=== PATIENT | female | born 1950 | race Caucasian/White ===

== ENCOUNTER 2019-10-07 07:50 | Outpatient (RCR) | payer MEDICARE, BC, SELFPAY ==
--- NOTE | 2019-10-07 09:05 | PTOPEVAL ---
Thank you for referring Beverly Del Rio to [facility].? The patient is scheduled to be seen for therapy? ____x/week for ___ weeks. Please review, sign, date and return this plan of care SUNDAY. I agree with and certify that the following plan of care is medically necessary. Referring Physician Date Admitting Provider: Attending Provider: PHYSICIAN NOT ON STAFF Referring Provider: *PT Outpatient Evaluation Start: 10/07/19 08:06 Freq: Status: Active Protocol: Document 10/07/19 08:05 PERRY (Rec: 10/07/19 08:58 PERRY [id number]) Therapy Assessment Status Assessment Status Assessment Status Evaluation Evaluation Information Problem Diagnosis lumbar radiculopathy, R LE pain Onset 10/01/19 Additional Evaluation Detail LEFS = OSWESTRY = Subjective Information patient reports she began Query Text:As Reported By Patient/ having increased pain in the Family back and down the R LE about 1 month ago. she reports she has pain in the fron of the thigh and medial side of the R knee. she reports she has had similar issues in the past with the back of the leg and lateral side of the knee. she reports she has a history of spinal surgery. she reports getting into and out of a car is more troublesome. she reports she wears a bandaid over the medial side of the knee to prevent rubbing on the nerve. she reports she is still working and works at [employer]. she reports decreased pain with standing and walking. Prior Level of Function Comments Additional Prior Level of Function prior to a month or so ago, no Comments issues with the R LE or lumbar spine other than general soreness at times. Pain Assessment Timing of Pain Assessment Timing of Pain Assessment Assessment Pain Scale Pain Scale Used Numeric (1 - 10) Self Report Pain Assessment Right Medial Knee(s) Reported Pain Level 6 Pain Description Burning,Soreness,Tingling Lowest Pain Intensity 1 Greatest Pain Intensity 8 Lower Back Reported Pain Level 0 Lowest Pain Intensity
--- NOTE | 2019-10-24 16:43 | PTOPEVAL ---
Thank you for referring Beverly Del Rio to [facility].? The patient is scheduled to be seen for therapy? ____x/week for ___ weeks. Please review, sign, date and return this plan of care SUNDAY. I agree with and certify that the following plan of care is medically necessary. Referring Physician Date Admitting Provider: Attending Provider: PHYSICIAN NOT ON STAFF Referring Provider: *PT Outpatient Evaluation Start: 10/07/19 08:06 Freq: Status: Active Protocol: Document 10/22/19 16:00 ANALI (Rec: 10/24/19 16:42 ANALI [id number]) Therapy Assessment Status Assessment Status Assessment Status Progress Evaluation Information Problem Diagnosis lumbar radiculopathy, right l. e. pain Onset 10/01/19 Additional Evaluation Detail Oswestry=22% limitation Subjective Information Pt. reports that her low back Query Text:As Reported By Patient/ is doing well. She notes that Family pain levels have diminshed in the back signficantly. She reports that she still has right knee pain. She continues to describe most pain in the medial right knee. She reports that she is able to stand longer without back pain, but knee pain continues to limit her mobility. She reports that she would like to continue treatment focusing on remaining knee pain. Pain Assessment Timing of Pain Assessment Timing of Pain Assessment Post-Treatment Pain Scale Pain Scale Used Numeric (1 - 10) Self Report Pain Assessment Right Medial Knee(s) Reported Pain Level 5 Lower Back Reported Pain Level 0 Pain Score Pain Score 5,0: Self Report Lower Extremity Muscle Strength Testing Hip Strength Right Hip Flexion Strength 4+ Good + Hip Extension Strength 4+ Good + Hip Abduction Strength 4 Good Left Hip Flexion Strength 5 Normal Hip Extension Strength 4+ Good + Hip Abduction Strength 4+ Good + Knee Strength Right Knee Flexion Strength 4+ Good + Knee Extension Strength 4+ Good + Muscle Length Testing Muscle Length Testing Left Hamstring Length 5 Query Text:(90 - 90 Position) Right Hamstring Length 13 Query Text:(90 - 90 Position) Palpation Assessment Palpation Palpation continue to note tenderness to palpation at the
== END 2019-11-24 09:50 | disposition home or self-care (01) ==
LOC: CHSPT 07:50
DX: M54.16 Radiculopathy, lumbar region (principal); M48.061 Spinal stenosis, lumbar region without neurogenic claudication; M17.11 Unilateral primary osteoarthritis, right knee; M70.50 Other bursitis of knee, unspecified knee
CPT/HCPCS: 97014; 97110; 97140; 97161; G0283

== ENCOUNTER 2020-10-25 08:01 | Outpatient (CLI) | payer MEDICARE, SELFPAY ==
[2020-10-25 09:02] LABS: Rheumatoid Factor Screen Negative (Negative)
[2020-10-25 09:10] LABS: CRP < 0.2 mg/dL (0.0-0.9)
[2020-10-25 09:21] LABS: Erythrocyte Sedimentation Rate 27 mm/hr (0-20)
== END 2020-10-25 08:02 | disposition home or self-care (01) ==
LOC: CHSLAB 08:07
PROVIDERS: PCP Family Medicine
DX: M25.561 Pain in right knee (principal)
CPT/HCPCS: 36415; 85652; 86038; 86140; 86430

== ENCOUNTER 2021-01-23 12:40 | Emergency (ER) | payer MEDICARE, SELFPAY ==
[2021-01-23] VITALS (7 sets, daily range): BP systolic 141–160; BP diastolic 73–90; PULSE 82–93; RESP 16–24; TEMP 36.1–36.3; O2SAT 96–100
--- NOTE | ~2021-01-23 | XR_ITS ---
EXAMINATION: XR chest 2V DATE: 01/23/2021 14:08 INDICATION: Shortness of breath TECHNIQUE: PA and lateral views of the chest are obtained. COMPARISON: 07/16/2007 FINDINGS: The lungs are free of acute opacities. There is no pleural effusion or pneumothorax. The ca rdiomediastinal silhouette is normal. There is moderate thoracic spondylosis. IMPRESSION: 1. No acute cardiopulmonary abnormality. Reviewed, dictated and finalized at location A. OMICS LECTURER
--- NOTE | 2021-01-23 13:40 | ED.SOB ---
HPI - SOB/Dyspnea General Chief Complaint: Shortness of Breath/Dyspnea Stated Complaint: short of breath Source: patient and RN notes reviewed Mode of arrival: ambulatory Limitations: no limitations History of Present Illness MD elicited complaint: shortness of breath Onset (ago): week(s) (2) Context: occurred during exertion Timing: intermittent Severity: moderate Exacerbating factors: exertion Relieving factors: rest Associated symptoms: denies other symptoms Treatment prior to arrival: none Related Data Home oxygen amount: none Home Medications Medication Instructions Recorded Confirmed alprazolam 0.5 mg tablet 0.5 mg PO QHS PRN 06/02/20 01/23/21 amitriptyline 25 mg tablet 25 mg PO QHS 06/02/20 01/23/21 aspirin 81 mg tablet,delayed 81 mg PO DAILY 06/02/20 01/23/21 release atorvastatin 40 mg tablet 40 mg PO DAILY 06/02/20 01/23/21 gabapentin 300 mg capsule 600 mg PO DAILY cap 06/02/20 01/23/21 lisinopril 20 1 tablet PO DAILY 06/02/20 01/23/21 mg-hydrochlorothiazide 12.5 mg tablet celecoxib 200 mg PO BID 01/23/21 01/23/21 Allergies Allergy/AdvReac Type Severity Reaction Status Date / Time No Known Allergies Allergy Verified 01/23/21 12:58 Review of Systems Review of Systems: All systems reviewed & are unremarkable except as noted in HPI and below Constitutional: Constitutional: Denies chills and Denies fever(s) Cardiovascular: Cardiovascular: Denies chest pain and Denies diaphoresis Respiratory: Respiratory: Reports as per HPI and Denies cough Gastrointestinal: Gastrointestinal: Denies nausea and Denies vomiting Neurologic: Denies dizziness and Denies syncope [facility] Past Medical History Medical History (Updated 01/23/21 @ 16:19 by Jonathan Cheema MD) Hyperlipidemia Hypertension Surgical History Surgical History (Updated 01/23/21 @ 13:55 by Jonathan Cheema MD) History of tonsillectomy Previous back surgery S/P [facility] Social History Social History Smoking status: Never smoker Alcohol intake: current Substance use: never Exam Const: General: healthy appearing, no acute distress and alert Nutritional Appearance: well nourished Orientation/consciousness: patient oriented x3 HENMT: Head: normal to inspection Ears: external ears normal Mouth: Yes moist mucous membranes Eyes: Conjunctivae: conjunctivae normal Pupils: Equal, round and reactive pupils present EOM: EOMs intact bilaterally Neck: Neck: normal visual inspection Resp: Effort & Inspection: normal respiratory effort Auscultation: clear to auscultation bilaterally Cardio: Rate: regular rate Rhythm: regular rhythm and regular rhythm GI: GI Palp: Yes Soft to palpation, No Tenderness to palpation present (GI) and No Guarding due to palpation present (GI) Auscultation: normal bowel sounds Back/Spine/Pelvis: Cervical Spine: cervical ROM normal Thoracic/Lumbar Spine: thoraco-lumbar ROM normal Skin: General skin exam: normal color Rashes: no rashes Neuro: General: patient oriented x3, moves all extremities, no focal motor deficits and CN's II-XI intact bilaterally Speech: normal speech Gait exam (Neuro): Normal gait present Extrem: General: normal to inspection and no clubbing, cyanosis or edema Psych: Mental Status: mental status grossly normal Affect: normal affect Attitude: cooperative Thought content: Yes Normal thought content present Course Course Emergency Course: Patient had history of anemia in the past and saw on a GI specialist found to have an ulcer. Today patient is symptomatic and therefore transfusion is appropriate. Patient advised to see a GI specialist again as an outpatient. Vital Signs Vital signs: Vital Signs Temperature 36.3 C L 01/23/21 13:00 Pulse Rate 93 01/23/21 13:00 Respiratory Rate 16 01/23/21 13:00 Blood Pressure 141/80 H 01/23/21 13:00 Pulse Oximetry 96 01/23/21 13:00 Temperature 36.2 C L 1
--- NOTE | 2021-01-23 13:41 | ECG_ITS ---
Measurements Intervals [place] Rate: 83 P: 43 [place]: 162 QRS: 9 QRSD: 78 T: 31 QT: 346 QTc: 407 Interpretive Statements SINUS RHYTHM ATRIAL PREMATURE COMPLEX VOLTAGE CRITERIA FOR LVH BORDERLINE ST ABNORMALITY- INFERIOR LEADS BORDERLINE ECG Electronically Signed On 01-23-2021 16:39:47 BALL FRINGE MACHINE OPERATOR by Johann Grey D.O.
[2021-01-23 13:55] LABS: Basophils Absolute Auto 0.05 K/mm3 (0.00-0.10); Basophils Percent Auto 0.5 % (0.0-1.0); Eosinophils Absolute Auto 0.16 K/mm3 (0.02-0.50); Eosinophils Percent Auto 1.5 % (1.0-6.0); Hematocrit 26.3 % (35.0-42.0); Hemoglobin 7.4 g/dL (11.7-13.8); Immature Granulocyte Absolute 0.07 K/mm3 (0.00-0.00); Immature Granulocyte Percent A 0.6 % (0.0-0.0); Lymphocytes Absolute Auto 1.03 K/mm3 (1.10-4.50); Lymphocytes Percent Auto 9.4 % (18.0-42.0); Mean Corpuscular HGB Conc 28.1 g/dL (32.0-36.0); Mean Corpuscular Volume 67.6 fL (78.0-102.0); Mean Platelet Volume 8.1 fl (9.2-11.8); Monocytes Absolute Auto 0.58 K/mm3 (0.10-0.90); Monocytes Percent Auto 5.3 % (2.0-11.0); Neutrophils Percent Auto 82.7 % (50.0-70.0); Platelet Count Result 497 K/mm3 (150-420); Red Blood Count 3.89 M/mm3 (4.20-5.40); Red Cell Distribution Width 17.8 % (11.6-14.4); White Blood Count 10.9 K/mm3 (4.8-10.8)
[2021-01-23 14:20] LABS: Alanine Aminotransferase 18 U/L (14-59); Albumin Level 3.3 g/dL (3.4-5.0); Alkaline Phosphatase 106 U/L (46-116); Anion Gap 8 mmol/L (8-16); Aspartate Amino Transferase 14 U/L (15-37); Bilirubin,Total 0.4 mg/dL (0.00-1.00); Blood Urea Nitrogen 23 mg/dL (7-18); Calcium 9.4 mg/dL (8.5-10.1); Carbon Dioxide 28 mmol/L (21-32); Chloride 104 mmol/L (98-108); Estimated CRCL calculation 37 ml/min; Estimated Glomerular Filt Rate 43; Glucose 90 mg/dL (70-99); Magnesium 1.9 mg/dL (1.8-2.4); NT Pro B Type Natriuretic Pept 81 pg/mL (0-125); Osmolality Calculated 293 mOsm/kg (285-295); Potassium 4.2 mmol/L (3.5-5.1); Sodium 140 mmol/L (136-145); Total Protein 7.2 g/dL (6.4-8.2); Troponin I 10.1 ng/L (0.00-60.4)
--- NOTE | 2021-01-23 14:40 | PC.NURSE ---
Blood consent signed by pt with daughter in room. Will scan into chart.
--- NOTE | 2021-01-23 14:58 | PC.NURSE ---
Pt informed waiting on blood to be ready from lab then we will start infusion. Pt states she has no needs at this time. Pt ambulated to restroom and back without difficulty. Call light in reach. Pt resting on stretcher. Pts daughter went home and states she will be back shortly.
[2021-01-23] MEDS: SODIUM CHLORIDE 0.9% IV 250 ML 30 ML IV CONT (15:31)
[2021-01-23 17:29] LABS: Hematocrit 27.9 % (35.0-42.0); Hemoglobin 8.4 g/dL (11.7-13.8)
== END 2021-01-23 17:51 | disposition home or self-care (01) ==
PROVIDERS: Emergency Provider Emergency Medicine; PCP Family Medicine
DX: D64.9 Anemia, unspecified (principal); E78.5 Hyperlipidemia, unspecified; I10 Essential (primary) hypertension
CPT/HCPCS: 36415; 36430; 71046; 80053; 83735; 83880; 84484; 85014; 85018; 85025; 86850; 86900; 86901; 86920; 93005; 96360; 96361; 99283; 99284; J7050; P9016

== ENCOUNTER 2021-02-21 10:32 | Outpatient (CLI) | payer MEDICARE, SELFPAY ==
[2021-02-21 11:31] LABS: SARS-CoV-2 Ag Negative (Negative)
== END 2021-02-21 10:33 | disposition home or self-care (01) ==
LOC: CHSLAB 10:36
PROVIDERS: PCP Family Medicine; Visit Provider Family Medicine
DX: Z20.822 Contact with and (suspected) exposure to COVID-19 (principal)
CPT/HCPCS: 87426; C9803

== ENCOUNTER 2021-04-11 07:55 | Outpatient (CLI) | payer MEDICARE, SELFPAY ==
[2021-04-11 08:22] LABS: Basophils Absolute Auto 0.04 K/mm3 (0.00-0.10); Basophils Percent Auto 0.6 % (0.0-1.0); Eosinophils Percent Auto 3.2 % (1.0-6.0); Hematocrit 37.4 % (35.0-42.0); Hemoglobin 11.5 g/dL (11.7-13.8); Immature Granulocyte Absolute 0.02 K/mm3 (0.00-0.00); Immature Granulocyte Percent A 0.3 % (0.0-0.0); Lymphocytes Absolute Auto 1.02 K/mm3 (1.10-4.50); Lymphocytes Percent Auto 16.2 % (18.0-42.0); Mean Corpuscular HGB Conc 30.7 g/dL (32.0-36.0); Mean Corpuscular Hemoglobin 24.1 pg (27.0-31.0); Mean Corpuscular Volume 78.4 fL (78.0-102.0); Mean Platelet Volume 8.8 fl (9.2-11.8); Monocytes Absolute Auto 0.81 K/mm3 (0.10-0.90); Monocytes Percent Auto 12.9 % (2.0-11.0); Neutrophils Absolute Auto 4.2 K/mm3 (1.7-7.2); Neutrophils Percent Auto 66.8 % (50.0-70.0); Platelet Count Result 357 K/mm3 (150-420); Red Blood Count 4.77 M/mm3 (4.20-5.40); Red Cell Distribution Width 26.5 % (11.6-14.4); White Blood Count 6.3 K/mm3 (4.8-10.8)
== END 2021-04-11 07:56 | disposition home or self-care (01) ==
LOC: CHSLAB 07:59
PROVIDERS: PCP Family Medicine
DX: D50.0 Iron deficiency anemia secondary to blood loss (chronic) (principal)
CPT/HCPCS: 36415; 85025

== ENCOUNTER 2022-02-02 09:49 | Outpatient (CLI) | payer MEDICARE, SELFPAY ==
--- NOTE | ~2022-02-02 | XR_ITS ---
Right ankle Technique: AP, oblique, and lateral views were obtained. Clinical History: Pain and swelling Findings: No acute fracture or dislocation is seen. Osseous alignment is anatomic. Ankle mortise and other visualized joint spaces are preserved. Plantar calcaneal spur noted. Soft tissues are otherwise unremarkable. Impression: No fracture or dislocation. No distinct evidence for erosive arthropathy. Plantar calcaneal spur. Reviewed, dictated and finalized at location . FILLER Impression: No fracture or dislocation. No distinct evidence for erosive arthropathy. Plantar calcaneal spur.
[2022-02-02 10:23] LABS: Basophils Absolute Auto 0.04 K/mm3 (0.00-0.10); Basophils Percent Auto 0.5 % (0.0-1.0); Eosinophils Absolute Auto 0.18 K/mm3 (0.02-0.50); Eosinophils Percent Auto 2.1 % (1.0-6.0); Hematocrit 41.2 % (35.0-42.0); Hemoglobin 13.4 g/dL (11.7-13.8); Immature Granulocyte Absolute 0.03 K/mm3 (0.00-0.00); Immature Granulocyte Percent A 0.3 % (0.0-0.0); Lymphocytes Absolute Auto 1.05 K/mm3 (1.10-4.50); Mean Corpuscular HGB Conc 32.5 g/dL (32.0-36.0); Mean Corpuscular Hemoglobin 28.2 pg (27.0-31.0); Mean Corpuscular Volume 86.6 fL (78.0-102.0); Mean Platelet Volume 8.9 fl (9.2-11.8); Monocytes Absolute Auto 0.68 K/mm3 (0.10-0.90); Monocytes Percent Auto 7.8 % (2.0-11.0); Neutrophils Absolute Auto 6.8 K/mm3 (1.7-7.2); Neutrophils Percent Auto 77.3 % (50.0-70.0); Platelet Count Result 368 K/mm3 (150-420); Red Blood Count 4.76 M/mm3 (4.20-5.40); Red Cell Distribution Width 13.2 % (11.6-14.4); White Blood Count 8.8 K/mm3 (4.8-10.8)
[2022-02-02 10:52] LABS: Alanine Aminotransferase 23 U/L (14-59); Albumin Level 4.1 g/dL (3.4-5.0); Alkaline Phosphatase 127 U/L (46-116); Anion Gap 9 mmol/L (8-16); Aspartate Amino Transferase 16 U/L (15-37); Bilirubin,Total 0.4 mg/dL (0.00-1.00); Blood Urea Nitrogen 18 mg/dL (7-18); Calcium 9.8 mg/dL (8.5-10.1); Carbon Dioxide 30 mmol/L (21-32); Chloride 102 mmol/L (98-108); Estimated Glomerular Filt Rate 45; Glucose 93 mg/dL (70-99); Osmolality Calculated 293 mOsm/kg (285-295); Potassium 4.1 mmol/L (3.5-5.1); Sodium 141 mmol/L (136-145); Uric Acid 6.7 mg/dL (2.6-6.0)
== END 2022-02-02 09:50 | disposition home or self-care (01) ==
LOC: CHSLAB 09:51
PROVIDERS: PCP Family Medicine; Visit Provider Family Medicine
DX: M25.571 Pain in right ankle and joints of right foot (principal); M77.31 Calcaneal spur, right foot
CPT/HCPCS: 36415; 73610; 80053; 84550; 85025

== ENCOUNTER 2022-11-20 10:59 | Outpatient (CLI) | payer MEDICARE, SELFPAY ==
--- NOTE | ~2022-11-20 | XR_ITS ---
EXAM: XR foot RT min 3V DATE: 11/20/2022 11:37 HISTORY: POSTERIOR FOOT PAIN/HEEL RADIATES UP INTO ACHILES . COMPARISON: None available. FINDINGS: Normal mineralization. No fracture or dislocation. No lytic or blastic lesion. Mild degene rative change in the midfoot and first MTP joint. Moderate Achilles and plantar enthesopathy. No eros ion or periosteal change. Soft tissues within normal limits. IMPRESSION: Moderate polyarticular osteoarthritis. Moderate plantar and Achilles enthesopathy. Reviewed, dictated and finalized at location K. IMPRESSION: Moderate polyarticular osteoarthritis. Moderate plantar and Katerina s enthesopathy.
== END 2022-11-20 11:00 | disposition home or self-care (01) ==
LOC: CHSIMG 11:04
PROVIDERS: PCP Family Medicine; Visit Provider Nurse Practitioner Family
DX: M25.571 Pain in right ankle and joints of right foot (principal); M19.071 Primary osteoarthritis, right ankle and foot; M77.31 Calcaneal spur, right foot
CPT/HCPCS: 73630

== ENCOUNTER 2023-03-29 16:39 | Outpatient (CLI) | payer MEDICARE, SELFPAY ==
--- NOTE | ~2023-03-29 | XR_ITS ---
EXAMINATION: XR knee LT 3V DATE: 03/29/2023 17:01 INDICATION: Left knee pain. TECHNIQUE: 3 views of left knee were obtained. COMPARISON: Left knee radiographs 10/30/2018 FINDINGS: Bone alignment is normal. No fracture. There is mild tricompartmental osteoarthritis. There is chondrocalcinosis of the menisci. No knee joint effusion. IMPRESSION: 1. Mild left knee osteoarthritis. Reviewed, dictated and finalized at location A. HANT PATROLLER
[2023-03-29 17:08] LABS: Basophils Absolute Auto 0.06 K/mm3 (0.00-0.10); Basophils Percent Auto 0.7 % (0.0-1.0); Eosinophils Absolute Auto 0.31 K/mm3 (0.02-0.50); Eosinophils Percent Auto 3.7 % (1.0-6.0); Hematocrit 42.4 % (35.0-42.0); Hemoglobin 13.2 g/dL (11.7-13.8); Immature Granulocyte Absolute 0.02 K/mm3 (0.00-0.00); Immature Granulocyte Percent A 0.2 % (0.0-0.0); Lymphocytes Absolute Auto 1.95 K/mm3 (1.10-4.50); Lymphocytes Percent Auto 23.6 % (18.0-42.0); Mean Corpuscular HGB Conc 31.1 g/dL (32.0-36.0); Mean Corpuscular Hemoglobin 26.2 pg (27.0-31.0); Mean Corpuscular Volume 84.3 fL (78.0-102.0); Mean Platelet Volume 9.4 fl (9.2-11.8); Monocytes Absolute Auto 0.74 K/mm3 (0.10-0.90); Monocytes Percent Auto 8.9 % (2.0-11.0); Neutrophils Absolute Auto 5.2 K/mm3 (1.7-7.2); Neutrophils Percent Auto 62.9 % (50.0-70.0); Platelet Count Result 361 K/mm3 (150-420); Red Blood Count 5.03 M/mm3 (4.20-5.40); White Blood Count 8.3 K/mm3 (4.8-10.8)
[2023-03-29 17:40] LABS: CRP 1.4 mg/dL (0.0-0.9); Uric Acid 5.7 mg/dL (2.6-6.0)
[2023-03-29 18:12] LABS: Erythrocyte Sedimentation Rate 28 mm/hr (0-20)
[2023-03-29 18:15] LABS: Rheumatoid Factor Screen Negative (Negative)
[2023-04-04 19:51] LABS: ANA Cascade Screen Negative (Negative)
== END 2023-03-29 16:40 | disposition home or self-care (01) ==
LOC: CHSLAB 16:42
PROVIDERS: PCP Family Medicine; Visit Provider Family Medicine
DX: M25.562 Pain in left knee (principal); M17.12 Unilateral primary osteoarthritis, left knee
CPT/HCPCS: 36415; 73562; 83516; 84550; 85025; 85652; 86038; 86140; 86225; 86235; 86430

== ENCOUNTER 2023-09-02 16:33 | Emergency (ER) | payer MEDICARE, SELFPAY ==
[2023-09-02 16:34] VITALS: BP 120/80; PULSE 100; RESP 20; TEMP 36.7; O2SAT 95
--- NOTE | 2023-09-02 16:43 | ED.GENADULT ---
HPI - General Adult General Chief complaint: Allergic Reaction Stated complaint: allergic rxn Time Seen by Provider: 09/02/23 16:36 Source: patient Mode of arrival: ambulatory Limitations: no limitations History of Present Illness HPI narrative: 72 year old female presents to the Emergency Department complaining of swelling to lips. Began with lower lips and herpetic eruptions while vacationing in [place] 3 days ago. Now having swelling to upper lip. Using acyclovir cream. Also takes Lisinopril/HCTZ. Onset (ago): day(s) (3) Location: mouth Severity: moderate Quality: burning Relieving factors: none Treatments prior to arrival: other (acyclovir cream) Related Data Home Medications Medication Instructions Recorded Confirmed alprazolam 0.5 mg tablet 0.5 mg PO QHS PRN Anxiety 06/02/20 09/02/23 amitriptyline 25 mg tablet 25 mg PO QHS 06/02/20 09/02/23 aspirin 81 mg tablet,delayed 81 mg PO DAILY 06/02/20 09/02/23 release (Adult Low Dose Aspirin) atorvastatin 40 mg tablet 40 mg PO DAILY 06/02/20 09/02/23 gabapentin 300 mg capsule 600 mg PO DAILY 06/02/20 09/02/23 lisinopril 20 1 tablet PO DAILY 06/02/20 09/02/23 mg-hydrochlorothiazide 12.5 mg tablet Allergies Allergy/AdvReac Type Severity Reaction Status Date / Time No Known Allergies Allergy Verified 09/02/23 16:41 Review of Systems Review of Systems: All systems reviewed & are unremarkable except as noted in HPI and below Constitutional: Constitutional: Reports as per HPI, Denies chills and Denies fever(s) Eyes: Eyes: Reports as per HPI ENT: Reports system reviewed and no additional complaints, except as documented Cardiovascular: Cardiovascular: Reports as per HPI Respiratory: Respiratory: Reports as per HPI Gastrointestinal: Gastrointestinal: Reports as per HPI Genitourinary: Genitourinary: Reports no additional female genitourinary complaints Musculoskeletal: Musculoskeletal: Reports no additional musculoskeletal complaints Integumentary/Breasts: Skin/Breast: Reports system reviewed and no additional complaints, except as docu Neurologic: Reports system reviewed and no additional complaints, except as documented Psychiatric: Psychiatric: Reports no additional psychiatric complaints Endocrine: Endocrine: Reports no additional endocrine complaints Hematologic/Lymphatic: Hematologic/Lymphatic: Reports no additional hematologic/lymphatic complaints Allergic/Immunologic: Allergic/Immunologic: Reports no additional allergic/immunologic complaints PMFSH Past Medical History Medical History Hyperlipidemia Hypertension Surgical History Surgical History History of tonsillectomy Previous back surgery S/P [facility] Social History Social History Smoking status: Never smoker Alcohol intake: current Substance use: never Exam Const: General: healthy appearing Nutritional Appearance: well nourished Orientation/consciousness: patient oriented x3 HENMT: Head: normal to inspection Ears: external ears normal Face/Nose/Sinus: Normal external nose present Face and sinus: normal facial exam Other: upper lip swelling, lower lip with herpetic lesion Eyes: Conjunctivae: conjunctivae normal Pupils: Equal, round and reactive pupils present EOM: EOMs intact bilaterally Direct Ophthalmoscopy: no photophobia Neck: Neck: normal visual inspection Chest: Chest palpation & inspection: normal inspection of the chest Resp: Effort & Inspection: normal respiratory effort Auscultation: clear to auscultation bilaterally Cardio: Rate: regular rate Rhythm: regular rhythm GI: Inspection: non-distended GI Palp: Yes Soft to palpation and No Tenderness to palpation present (GI) Back/Spine/Pelvis: Back: no CVA tenderness Skin: General skin exam: normal color Rashes: no rashe
[2023-09-02] MEDS: diphenhydrAMINE HCl CAP 25 MG CAPSULE 50 MG PO (16:50)
[2023-09-02] MEDS: ACYCLOVIR 200 MG CAPSULE PO (16:50)
== END 2023-09-02 17:11 | disposition home or self-care (01) ==
LOC: CHSED 17:08
PROVIDERS: Emergency Provider Emergency Medicine; PCP Family Medicine
DX: B00.2 Herpesviral gingivostomatitis and pharyngotonsillitis (principal); T78.3XXA Angioneurotic edema, initial encounter; E78.5 Hyperlipidemia, unspecified; I10 Essential (primary) hypertension; Z79.899 Other long term (current) drug therapy; Z79.82 Long term (current) use of aspirin
CPT/HCPCS: 99283; A9270

== ENCOUNTER 2023-11-11 22:37 | Emergency (ER) | payer MEDICARE, SELFPAY ==
--- NOTE | ~2023-11-11 | XR_ITS ---
Right wrist Technique: PA, oblique, lateral, and ulnar deviation views were obtained. Clinical History: Status post fall Findings: There is acute, comminuted fracture of the distal radius, predominantly transverse orientat ion, with intra-articular extension as well. Fracture fragments are mildly displaced with dorsal atte nuation overall. There is an acute mildly displaced fracture of the ulnar styloid process. There is w idening of the scapholunate interval, compatible with underlying scapholunate ligament tear.. Soft ti ssues are unremarkable. Impression: Acute, comminuted, intra-articular fracture distal radius. Acute, mildly displaced fracture of the ulnar stylet process. Scapholunate interval widening is consistent with underlying scapholunate ligament tear. This is of u ncertain chronicity. Reviewed, dictated and finalized at location . Impression: Acute, comminuted, intra-articular fracture distal radius. Acute, mildly displaced fracture of the ulnar stylet process. Scapholunate interval widening is consistent with underlying scapholunate ligam ent tear. This is of uncertain chronicity.
[2023-11-11 22:40] VITALS: BP 157/87; PULSE 85; RESP 18; TEMP 36.3; O2SAT 96
--- NOTE | 2023-11-11 23:19 | ED.UPPEXIN ---
HPI - Extremity Injury (Upper) General Chief Complaint: Extremity Injury, Upper Stated Complaint: upper extremity injury Source: patient Mode of arrival: ambulatory Limitations: no limitations History of Present Illness HPI narrative: Patient is a 72-year-old female with a fall at the end of the stairs on to the right wrist. She sustained an injury to the right wrist. No other injuries. MD complaint: injury to: right and wrist Onset (ago): hour(s) (1) Other Extremity Injury: Right: wrist Handedness: right Place: home Severity: moderate Severity scale (1-10): 5 Relieving factors: cold therapy, immobilization and rest Exacerbating factors: movement of extremity Context: fall, direct blow and injury Associated symptoms: denies other symptoms Treatments prior to arrival: cold therapy Related Data Home Medications Medication Instructions Recorded Confirmed alprazolam 0.5 mg tablet 0.5 mg PO QHS PRN Anxiety 06/02/20 11/11/23 amitriptyline 25 mg tablet 25 mg PO QHS 06/02/20 11/11/23 aspirin 81 mg tablet,delayed 81 mg PO DAILY 06/02/20 11/11/23 release (Adult Low Dose Aspirin) atorvastatin 40 mg tablet 40 mg PO DAILY 06/02/20 11/11/23 gabapentin 300 mg capsule 600 mg PO DAILY 06/02/20 11/11/23 lisinopril 20 1 tablet PO DAILY 06/02/20 11/11/23 mg-hydrochlorothiazide 12.5 mg tablet diltiazem HCl 240 mg capsule,24 240 mg PO DAILY 11/11/23 11/11/23 hr,extended release (Tiadylt ER) Allergies Allergy/AdvReac Type Severity Reaction Status Date / Time No Known Allergies Allergy Verified 11/11/23 22:50 Review of Systems Review of Systems: All systems reviewed & are unremarkable except as noted in HPI and below Constitutional: Constitutional: Reports no additional constitutional complaints Eyes: Eyes: Reports no additional eye complaints ENT: Reports system reviewed and no additional complaints, except as documented Cardiovascular: Cardiovascular: Reports no additional cardiovascular complaints Respiratory: Respiratory: Reports no additional respiratory complaints Gastrointestinal: Gastrointestinal: Reports no additional gastrointestinal complaints Genitourinary: Genitourinary: Reports no additional female genitourinary complaints Musculoskeletal: Musculoskeletal: Reports no additional musculoskeletal complaints Integumentary/Breasts: Skin/Breast: Reports system reviewed and no additional complaints, except as docu Neurologic: Reports system reviewed and no additional complaints, except as documented Psychiatric: Psychiatric: Reports no additional psychiatric complaints Endocrine: Endocrine: Reports no additional endocrine complaints Hematologic/Lymphatic: Hematologic/Lymphatic: Reports no additional hematologic/lymphatic complaints Allergic/Immunologic: Allergic/Immunologic: Reports no additional allergic/immunologic complaints PMFSH Past Medical History Medical History Hyperlipidemia Hypertension Surgical History Surgical History History of tonsillectomy Previous back surgery S/P [facility] Social History Social History Smoking status: Never smoker Alcohol intake: current Substance use: never Exam Const: General: healthy appearing Nutritional Appearance: well nourished Orientation/consciousness: patient oriented x3 Limitations: no limitations HENMT: Head: normal to inspection Ears: external ears normal Face/Nose/Sinus: Normal external nose present Eyes: Conjunctivae: conjunctivae normal Pupils: Equal, round and reactive pupils present EOM: EOMs intact bilaterally Neck: Neck: normal visual inspection Chest: Chest palpation & inspection: normal inspection of the chest Resp: Effort & Inspection: normal respiratory effort and not labored Auscultation: clear to auscultation bilaterally and no crackles Cardio:
[2023-11-11] MEDS: HYDROcodone/acetaminophen (*CRX) 10-325 MG TABLET 1 TAB PO (23:32)
[2023-11-12 00:25] VITALS: PULSE 80; RESP 18; O2SAT 98
== END 2023-11-12 00:25 | disposition home or self-care (01) ==
PROVIDERS: Emergency Provider Emergency Medicine; PCP Family Medicine
DX: S52.501A Unspecified fracture of the lower end of right radius, initial encounter for closed fracture (principal); E78.5 Hyperlipidemia, unspecified; I10 Essential (primary) hypertension; Z79.899 Other long term (current) drug therapy; Z79.82 Long term (current) use of aspirin; W10.9XXA Fall (on) (from) unspecified stairs and steps, initial encounter; Y92.009 Unspecified place in unspecified non-institutional (private) residence as the place of occurrence of the external cause
CPT/HCPCS: 29125; 73110; 99284; A4565; A9270

== ENCOUNTER 2023-11-14 12:20 | Outpatient (CLI) | payer MEDICARE, SELFPAY ==
--- NOTE | 2023-11-14 12:38 | ECG_ITS ---
Test Date: 2023-11-14 12:49:05 Measurements Intervals [place] Rate: 85 P: 56 [place]: 172 QRS: 16 QRSD: 93 T: 23 QT: 356 QTc: 424 Interpretive Statements SINUS RHYTHM NONSPECIFIC T-WAVE ABNORMALITY ABNORMAL ECG No previous ECG available for comparison Electronically Signed On 11-14-2023 14:07:18 CDT by Basil Vizcarra M.D.
[2023-11-14 13:08] LABS: Anion Gap 6 mmol/L (4-12); Blood Urea Nitrogen 21 mg/dL (7-17); Calcium 9.8 mg/dL (8.4-10.2); Carbon Dioxide 32 mmol/L (22-30); Chloride 101 mmol/L (98-107); Estimated Glomerular Filt Rate 54; Glucose 98 mg/dL (65-110); Potassium 4.4 mmol/L (3.4-5.0); Sodium 139 mmol/L (137-145)
== END 2023-11-14 12:21 | disposition home or self-care (01) ==
LOC: ANHSURGERY 12:26
PROVIDERS: Anesthesiology; PCP Family Medicine; Visit Provider Orthopaedic Surgery
DX: I10 Essential (primary) hypertension (principal); Z79.899 Other long term (current) drug therapy; Z01.818 Encounter for other preprocedural examination; R94.31 Abnormal electrocardiogram [ECG] [EKG]
CPT/HCPCS: 36415; 80048; 93005

== ENCOUNTER 2023-11-15 03:08 | Day surgery (SDC) | payer MEDICARE, SELFPAY ==
[2023-11-14 08:41] VITALS: BMI 34.8
--- NOTE | 2023-11-14 08:49 | PC.NURSE ---
Report to the Outpatient Waiting Room, entrance under the green pavilion located off [facility], at time _0630_ on date _[id number]_. Planned Procedure Time: _0830_.? Time changes happen often and if your time is changed the preop area will call you the afternoon before. - You and your visitor will be asked to self-screen and do not enter if you have any COVID symptoms. Please call surgeon if you need to reschedule. - A mask is optional within the hospital at this time. Patients may have clear liquids (water, carbonated beverages, clear teas, apple juice) until 3 hours prior to surgery with a maximum of 20 ounces. - No food from midnight until time of surgery and no smoking Take only the following medications with a SIP of water on the morning of surgery: ___Tiadylt DO NOT STOP ANY OF YOUR OTHER PRESCRIPTION MEDICATIONS PRIOR TO SURGERY EXCEPT THE FOLLOWING Medications to discontinue per physician ___None Date to take last dose Please no make-up, nail colombian, hairspray, perfume, deodorant, or body powder the day of surgery.? No jewelry (including any body piercings) or valuables the day of surgery, leave them at home.? Please take a shower or bath the night before, or the morning of, surgery with an antibacterial soap.? Wear comfortable, loose fitting clothing.? - Jewelry must be removed prior to entering the operating room.? Rings and piercings that are not removed may be cut off. - The hospital will not accept responsibility for valuables.? - Please leave all valuables, including medications, at home the day of surgery. If you are going home after surgery, a licensed warehouse delivery driver must drive you home.? - NO public transportation without another adult if you receive anesthesia. - We recommend that an adult stay with you for 24 hours following discharge. - We also recommend that you do not drive, make important decision, drink alcoholic beverages, or take any drugs that were not prescribed by your health care provider for at least 24 hours after your discharge time. Follow any additional instructions given to you from your surgeon. Telephone instructions given to __Beverly__and asked if any additional questions and then verbalized understanding. Patient advised to call surgeon office or pre surgery nurse liaison [phone] if any additional questions.
[2023-11-15] VITALS (8 sets, daily range): BP systolic 134–148; BP diastolic 57–75; PULSE 78–100; RESP 12–21; TEMP 36.3–36.4; O2SAT 94–100
--- NOTE | ~2023-11-15 | XR_ITS ---
EXAMINATION: XR surgery orthopedic DATE: 11/15/2023 09:56 INDICATION: Right wrist ORIF TECHNIQUE: 4 fluoroscopic images of the right wrist were obtained during procedure performed by Dr. Markus mantilla. Radiologist was not present for the imaging or procedure. The amount of fluoroscopy time used during this procedure was 0.4 minutes. COMPARISON: 11/11/2023 FINDINGS: Interval open reduction internal fixation of the comminuted intra-articular fracture of the distal ri ght radius which is now in near-anatomic alignment with volar T plate and screw fixation. There is 2 degrees dorsal tilt the distal articular surface. No significant fracture gap or incongruity along th e distal articular surface. There is an unchanged mildly displaced ulnar styloid avulsion fracture. T he previously widened scapholunate interval is been reduced and now appears normal. Mild polyarticula r osteoarthritis at the wrist, triscaphe and first carpal metacarpal joints. IMPRESSION: 1. Near-anatomic alignment post open reduction and volar T plate and screw fixation of a comminuted i ntra-articular fracture of the distal right radius. 2. Unchanged mildly displaced and fixed ulnar styloid avulsion fracture fragment. 3. Previously widened scapholunate interval consistent with tear of the scapholunate ligament has bee n reduced. Unclear whether this is transient and positional or whether there has been an interval lig ament repair. Correlate with surgical history. Reviewed, dictated and finalized at location A. IMPRESSION: 1. Near-anatomic alignment post open reduction and volar T plate and screw fixa tion of a comminuted intra-articular fracture of the distal right radius. 2. Unchanged mildly displaced and fixed ulnar styloid avulsion fracture fragmen t. 3. Previously widened scapholunate interval consistent with tear of the scaphol unate ligament has been reduced. Unclear whether this is transient and position al or whether there has been an interval ligament repair. Correlate with surgic al history.
[2023-11-15] MEDS: ACETAMINOPHEN 500 MG TABLET 1000 MG PO (07:15)
--- NOTE | 2023-11-15 07:25 | WPDHPUPDATE1 ---
History and Physical Update Update Date/Time: 11/15/23 07:25 History and Physical has been reviewed, including an updated exam of the patient. There are NO changes in the patient's condition. Risks, benefits, and alternatives have been discussed and questions answered. Patient agrees to proceed with procedure.
[2023-11-15] MEDS: LACTATED RINGERS 1,000 ML 30 ML IV CONT (07:30)
[2023-11-15] MEDS: KETOROLAC 15 MG/ML VIAL (*BKC) IV PUSH (07:35)
--- NOTE | 2023-11-15 08:29 | P.OP_ITS ---
Procedure Note - Detailed Date of Procedure 11/15/23 Pre-op Diagnosis Right Wrist fracture Post-op Diagnosis Same Procedure Performed Open reduction internal fixation right wrist fracture , intra-articular with fixation of greater than 4 fragments. Surgeon Isidro Villa MD Coffee Bar Attendant 1st behavioral health assistant Anesthesia General Indications 72-year-old with right wrist fracture after fall. Presents for operative treatment. Findings Comminuted intra-articular fracture of distal radius. Description of Procedure After informed consent the operative extremity was marked in the preoperative holding area. Patient received intravenous antibiotics. Patient taken to the operating room where they underwent general anesthesia. Positioned supine on operating table. Time-out performed confirming the patient, patient's site of surgery and the plan. Right upper extremity prepped and draped in the usual sterile surgical fashion using a ChloraPrep skin solution. Hand and wrist exsanguinated and arm tourniquet inflated to 225 mmHg. Standard volar flexor carpi radialis incision utilized. Fifteen blade knife used to make longitudinal incision. Flexor carpi radialis tendon identified tendon sheath incised in line with skin incision. Tendon retracted to protect the neurovascular elements. Floor of the tendon sheath incised with a 15 blade knife. Flexor pollicis retracted medial. pronator quadratus then divided off the watershed line and reflected ulnarward to expose the distal radius and the fracture. Fracture was then reduced provisionally pinned. Image intensification confirm reduction. Fixation achieved with the distal radius volar plate. This was provisionally pinned into place and confirmed with image intensification. Fixation to the proximal fragment with a 3.5 mm screw. Distal fracture fixation achieved with 2.0 mm locking pegs and 2.0 mm fully threaded locking screws for the radial styloid. Fixation was then completed proximally with the remaining 3.5 mm sc rews. Final reduction of the fracture, alignment of the wrist joint and placement of the hardware verified with image intensification. Wound thoroughly irrigated with antibiotic solution. Pronator repaired with 3 0 Monocryl interrupted suture. Skin closed with interrupted subcutaneous 000 Monocryl interrupted suture and running 000 Monocryl subcuticular stitch. Local anesthetic with 0.5% Marcaine. Sterile dressing applied. Padded dressing and splint then applied. Tourniquet released and good capillary refill noted in the fingers and thumb. Patient awoke from anesthesia, extubated and taken to the recovery room in stable condition. All sponge and instrument counts correct at the end of case. [employer] volar distal radius plate and screws with 2.0 mm pegs. Estimated Blood Loss 5 Tourniquet Time Total Tourniquet Time: 60 Drains No Packing No Pathology None sent Complications None Condition Stable Disposition PACU [facility] Billing Surgery - Charge Forward: Surgery Billing ([id number])
--- NOTE | 2023-11-15 08:43 | WPDANESEPPF ---
Anes - Initial Pre Proc Eval Procedure: Operation Date: 11/15/23 08:30 Proposed Procedures p Open Reduction Internal Fixation Right Wrist - Isidro Villa MD Date/Time: 11/15/23 08:43 Surgeon: Isidro Villa MD Pre Op Diagnosis: Right Wrist fracture Patient Data Age: 72 Gender: F Height: 1.55 m Weight: 85 kg Last Vital Signs Temp 97.6 F 11/15/23 06:25 Pulse 100 11/15/23 06:25 Resp 20 11/15/23 06:25 BP 146/75 H 11/15/23 06:25 Pulse Ox 98 11/15/23 06:25 O2 Del Method Room Air 11/15/23 06:25 Allergies Allergy/AdvReac Type Severity Reaction Status Date / Time No Known Allergies Allergy Verified 11/15/23 07:21 Home Medications Medication Instructions Recorded Confirmed Type alprazolam 0.5 mg tablet 0.5 mg PO QHS PRN Anxiety 06/02/20 11/14/23 History amitriptyline 25 mg tablet 25 mg PO QHS 06/02/20 11/15/23 History aspirin 81 mg tablet,delayed 81 mg PO DAILY 06/02/20 11/15/23 History release (Adult Low Dose Aspirin) atorvastatin 40 mg tablet 40 mg PO DAILY 06/02/20 11/15/23 History gabapentin 300 mg capsule 600 mg PO DAILY 06/02/20 11/15/23 History lisinopril 20 1 tablet PO DAILY 06/02/20 11/15/23 History mg-hydrochlorothiazide 12.5 mg tablet diltiazem HCl 240 mg capsule,24 240 mg PO DAILY 11/11/23 11/15/23 History hr,extended release (Tiadylt ER) hydrocodone 5 mg-acetaminophen 325 1 tablet PO Q8H PRN pain #20 tabs 11/15/23 Rx mg tablet sennosides 8.6 mg-docusate sodium 1 tab-cap PO BID PRN constipation 11/15/23 Rx 50 mg tablet (Senna with Docusate #20 tabs Sodium) Patient hx anesthesia problems: none Family hx anesthesia problems: none Results Review: All pre-operative results and documents have been reviewed as part of the pre-operative evaluation. [facility] Past Medical History Medical History Hyperlipidemia Hypertension Surgical History Surgical History History of tonsillectomy Previous back surgery S/P DEANGELO-BSO Social History Social History (Updated 11/13/23 @ 14:46 by Mallika Coleman CMA) Social History: caffeine use Smoking status: Never smoker Alcohol intake: current Drinks per week: 2 Substance use: never Living arrangements: with family Occupation/Education: occupation Gender identity (if verbalized by the patient): Female Spiritual care concerns: No Anes - Eval Final PreProcedure Day of Procedure 11/15/23 08:43 Patient weight: obese Heart: regular rate and rhythm Lungs: clear to auscultation Airway: Mallampati scale class II Neurological: alert and oriented Last oral intake: >/= 8 hours ASA classification: III Emergent: no Anesthetic plan: proceed Anesthesia type and monitoring: general LMA and standard monitoring Results Review: All pre-operative results and documents have been reviewed as part of the pre-operative evaluation. Informed Consent: The patient's anesthetic plan and its attendant risks and benefits were discussed with the patient/family/POA. Questions were solicited and answers provided to the satisfaction of the patient/family/POA.
[2023-11-15] MEDS: ceFAZolin 2 GM/D5W 50 ML 2 GM/50 ML BAG IVPB (08:48)
[2023-11-15] MEDS: BUPIVACAINE/EPINEPHRINE 0.5% 10 ML VIAL 20 ML INFILTRATE (09:14)
[2023-11-15] MEDS: fentaNYL CITRATE INJ (*CRX) 100 MCG/2 ML VIAL 25 MCG IV PUSH ×4 (10:26→10:48)
[2023-11-15] MEDS: oxyCODONE HCL (*CRX) 5 MG TAB IR PO (11:20)
== END 2023-11-15 12:05 | disposition home or self-care (01) ==
PROVIDERS: PCP Family Medicine; Visit Provider Orthopaedic Surgery
PROC: (CPT 25575; principal; 2023-11-15 08:30)
DX: S52.571A Other intraarticular fracture of lower end of right radius, initial encounter for closed fracture (principal); W19.XXXA Unspecified fall, initial encounter; I10 Essential (primary) hypertension; E78.5 Hyperlipidemia, unspecified; Z79.82 Long term (current) use of aspirin; E66.9 Obesity, unspecified; Z68.35 Body mass index [BMI] 35.0-35.9, adult
CPT/HCPCS: 25609; 99199; A9270; C1713; J0690; J1100; J1885; J2003; J2250; J2405; J2704; J3010; J7120

== ENCOUNTER 2023-11-19 07:34 | Outpatient (CLI) | payer MEDICARE, SELFPAY ==
--- NOTE | ~2023-11-19 | XR_ITS ---
EXAMINATION: XR wrist RT min 3V DATE: 11/19/2023 07:51 INDICATION: Right wrist pain. TECHNIQUE: 3 views of right wrist were obtained. COMPARISON: Right wrist radiographs 11/11/2023 FINDINGS: There is a comminuted fracture of distal radius in near-anatomic alignment status post redu ction internal fixation with volar plate and screws. There is an avulsion fracture of the ulnar stylo id. Cast material obscures fine bone detail. Scapholunate dissociation is noted. There is mild osteoa rthritis of triscaphe joint and first carpometacarpal joint. IMPRESSION: 1. Comminuted fracture of distal radius status post open reduction internal fixation. 2. Avulsion fracture of the ulnar styloid. 3. Scapholunate dissociation. 4. Mild polyarticular osteoarthritis. Reviewed, dictated and finalized at location A. IMPRESSION: 1. Comminuted fracture of distal radius status post open reduction internal fix ation. 2. Avulsion fracture of the ulnar styloid. 3. Scapholunate dissociation. 4. Mild polyarticular osteoarthritis.
== END 2023-11-19 07:35 | disposition home or self-care (01) ==
LOC: CHSIMG 07:36
PROVIDERS: PCP Family Medicine; Visit Provider Orthopaedic Surgery
DX: Z47.89 Encounter for other orthopedic aftercare (principal); S52.501A Unspecified fracture of the lower end of right radius, initial encounter for closed fracture; S52.201A Unspecified fracture of shaft of right ulna, initial encounter for closed fracture; M19.031 Primary osteoarthritis, right wrist
CPT/HCPCS: 73110

== ENCOUNTER 2023-12-10 07:35 | Outpatient (CLI) | payer MEDICARE, SELFPAY ==
--- NOTE | ~2023-12-10 | XR_ITS ---
EXAMINATION: XR wrist RT min 3V DATE: 12/10/2023 08:27 INDICATION: Right wrist pain. TECHNIQUE: 3 views of right wrist were obtained. COMPARISON: Right wrist radiograph 11/19/2023 FINDINGS: There is a comminuted fracture of distal radius status post open reduction internal fixatio n with volar plate and screws. There is 10 degrees dorsal tilt of the distal articular surface. Again seen is an avulsion fracture of the ulnar styloid. Scapholunate dissociation is noted. There is dors al tilt of lunate, consistent with dorsal intercalated segmental instability (DISI). There is severe osteoarthritis of triscaphe joint, first interphalangeal joint, and second metacarpophalangeal joint. IMPRESSION: 1. Comminuted fracture of distal radius with internal fixation. 2. Avulsion fracture of the ulnar styloid. 3. Scapholunate dissociation with DISI. 4. Polyarticular osteoarthritis. Reviewed, dictated and finalized at location []
== END 2023-12-10 07:36 | disposition home or self-care (01) ==
PROVIDERS: PCP Family Medicine; Visit Provider Orthopaedic Surgery
DX: S52.501A Unspecified fracture of the lower end of right radius, initial encounter for closed fracture (principal); S52.611A Displaced fracture of right ulna styloid process, initial encounter for closed fracture; M19.031 Primary osteoarthritis, right wrist; M21.831 Other specified acquired deformities of right forearm
CPT/HCPCS: 73110

== ENCOUNTER 2024-01-14 08:35 | Outpatient (CLI) | payer MEDICARE, SELFPAY ==
--- NOTE | ~2024-01-14 | XR_ITS ---
EXAMINATION: XR wrist RT min 3V DATE: 01/14/2024 08:48 INDICATION: Fracture follow-up with generalized right wrist pain and stiffness TECHNIQUE: Posteroanterior, ulnar deviation, oblique, and lateral views of the right wrist were obtai claudy. COMPARISON: 12/10/2023 FINDINGS: Healing fracture of the metaphyseal region of the distal right radius with volar plate and screw fixa tion. There is some calcification along the radial side of the fracture which retains a discernible l ucent fracture plane. Alignment is unchanged with 15 degrees dorsal tilt of the distal articular surf ki. There is developing cortication along the fracture margin of a mildly displaced ununited ulnar s tyloid avulsion fracture. There is widening of the scapholunate interval consistent with scapholunate ligament tear with secondary dorsal intercalated segment instability (DISI). There is also moderate osteoarthritis at the radioscaphoid articulation and mild osteoarthritis at the midcarpal joint consi stent with developing scapholunate advanced collapse (SLAC) wrist. Additional polyarticular osteoarth ritis, severe at the triscaphe joint and a, moderate at the first interphalangeal joint mild at many of the remaining joints in the visualized right hand. IMPRESSION: 1. Healing internally fixed fracture distal right radius. 2. Mildly displaced unfixed ununited ulnar styloid avulsion fracture which appears to be progressing towards nonunion. 3. 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 4. Polyarticular osteoarthritis. Reviewed, dictated and finalized at location A. MERCE MERCHANDISING MANAGER IMPRESSION: 1. Healing internally fixed fracture distal right radius. 2. Mildly displaced unfixed ununited ulnar styloid avulsion fracture which appe ars to be progressing towards nonunion. 3. Scapholunate ligament insufficiency with secondary dorsal intercalated segme nt instability (DISI) and scapholunate advanced collapse (SLAC) wrist. 4. Polyarticular osteoarthritis.
== END 2024-01-14 08:36 | disposition home or self-care (01) ==
LOC: CHSLAB 08:38
PROVIDERS: PCP Family Medicine; Visit Provider Orthopaedic Surgery
DX: S52.501D Unspecified fracture of the lower end of right radius, subsequent encounter for closed fracture with routine healing (principal); Z47.89 Encounter for other orthopedic aftercare; S52.611K Displaced fracture of right ulna styloid process, subsequent encounter for closed fracture with nonunion; M25.331 Other instability, right wrist; M19.031 Primary osteoarthritis, right wrist
CPT/HCPCS: 73110

== ENCOUNTER 2024-04-08 09:34 | Outpatient (CLI) | payer MEDICARE, SELFPAY ==
--- NOTE | ~2024-04-08 | XR_ITS ---
EXAM: XR thoracic spine 3V DATE: 04/08/2024 10:34 HISTORY: FALL X3 MO AGO,PAIN IN NECK INTO LT ARM SINCE,LROM . COMPARISON: X-ray chest 01/23/2021. FINDINGS: Vertebral body alignment intact. Mild scoliosis. Kyphotic thoracic spine. Mild height loss at T7-T9, unchanged. Multilevel moderate disc space narrowing and marginal osteophytosis including b ridging lateral osteophytes. Visualized lung parenchyma is clear. Aortic arch calcifications. IMPRESSION: Mild stable compression deformities at T7-T9. Multilevel moderate thoracic degenerative d isc disease. Reviewed, dictated and finalized at location K. PAPER MANAGING EDITOR IMPRESSION: Mild stable compression deformities at T7-T9. Multilevel moderate t horacic degenerative disc disease.
--- NOTE | ~2024-04-08 | XR_ITS ---
EXAMINATION: XR_CERV2-3V_CR DATE: 04/08/2024 10:34 INDICATION: Neck pain radiating to the left arm. TECHNIQUE: 3 views of cervical spine were obtained. COMPARISON: None. FINDINGS: Alignment is normal. Vertebral body heights are normal. There is severely decreased disc he ight at C4-C5 and C5-C6 and moderately decreased disc height at C7-T1. There is multilevel facet join t osteoarthritis, severe at C7-T1. There is multilevel uncovertebral joint osteoarthritis, severe vickie aterally at C4-C5 and C5-C6. There is mild central canal stenosis at C4-C5 and C5-C6. No prevertebral soft tissue swelling. IMPRESSION: 1. Severe cervical spondylosis. Reviewed, dictated and finalized at location A. R OPERATOR
--- NOTE | ~2024-04-08 | XR_ITS ---
EXAMINATION: XR shoulder LT min 2V DATE: 04/08/2024 10:34 INDICATION: Left shoulder pain and limited range of motion post fall 3 months prior TECHNIQUE: AP internally and externally rotated, AP oblique externally rotated and transscapular Y vi ews of the left shoulder were obtained. COMPARISON: None FINDINGS: Normal alignment. No fracture. Glenohumeral joint is normal. Moderate acromioclavicular osteoarthrit is. Irregular cortical margin along the greater tuberosity which can be seen in setting of chronic ro tator cuff disease. Soft tissues are unremarkable. Visualized portion of the right lung is clear. Pro minent atherosclerotic calcifications at the left carotid bulb. IMPRESSION: Moderate left acromioclavicular osteoarthritis and changes along the greater tuberosity which can be seen with chronic rotator cuff disease. No acute osseous abnormality. Reviewed, dictated and finalized at location B. [employer]ARK WORKERS IMPRESSION: Moderate left acromioclavicular osteoarthritis and changes along the greater tu berosity which can be seen with chronic rotator cuff disease. No acute osseous abnormality.
--- OUTSIDE RECORDS SUMMARY | 2024-04-08 10:39 | XMS_ITS | Encounter Summary ---
Author Organization [facility] Address [address] [place] [address] Care Team Providers Care Greenhouse Transplanter Name Role Phone Vincent Ba MD Primary Care Provider [phone] Elías Cid MD Unavailable [phone] Cale Cline MD Unavailable Unavailable Tricia Witt MD Unavailable [phone] Encounter Details Date Type Department Care Team (Late st Contact Info) Description 04/26/2015 Therapy Visit EXTERNAL NON-[facility] [place] [place] [id number] [address] [address] Social History Tobacco Use Types Packs/Day Years Used Date Smoking Tobacco: Never Alcohol Use Standard Drinks/Week Comments No 0 (1 standard drink = 0.6 oz pur e alcohol) Sex and Gender Information Value Date Recorded Sex Assigned at Not on file Gender Identity Not on file Sexual Orientation Not on file documented as of this encounter Plan of Treatment Upcoming Encounters Date Type Department Care Team (Late st Contact Info) Description 05/13/2024 9:30 AM CDT Office Visit [facility] [id number] [place] [address], [facility] [address] [place] [address] [place] [id number] [facility] [address] [place] [address] documented as of this encounter Visit Diagnoses Not on filedocumented in this encounter Care Teams Greenhouse Transplanter Relationship Specialty Start Date End Date Vincent Ba MD [address] [place] [address] PCP - General 10/06/08 [place] [id number] [address] [place] [address] Anesthesiology-Pain Management 06/01/15 [place] [id number] [address] [place] [address] Cardiovascular Disease 12/12/18 [place] [address] [address] [place] [id number] Cardiovascular Disease 06/14/23 documented as of this encounter
--- OUTSIDE RECORDS SUMMARY | 2024-04-08 10:40 | XMS_ITS | Encounter Summary ---
Author Organization [facility] Address [address] [facility] [place] [address] Care Team Providers Care Air Transportation Provider Name Role Phone Vincent Ba MD Primary Care Provider [phone] Elías Cid MD Unavailable [phone] Cale Cline MD Unavailable Unavailable Tricia Witt MD Unavailable [phone] Encounter Details Date Type Department Care Team (Late st Contact Info) Description 06/05/2014 Therapy Visit EXTERNAL NON-[facility] [place] [place] [address] [address] Social History Tobacco Use Types [...] Description 05/13/2024 9:30 AM CDT Office Visit [facility] [address] [place] [address], [facility] [[email or web address]] [address] [place] [address] [place] [address] [address] [facility] [address] [place] [address] documented as of this encounter Visit Diagnoses Not on filedocumented in this encounter Care Teams Air Transportation Provider Relationship Specialty Start Date End Date Vincent Ba MD [address] [place] [address] PCP - General 10/06/08 [place] [address] [address] [place] [address] Anesthesiology-Pain Management 06/01/15 [place] [address] [address] [place] [address] Cardiovascular Disease 12/12/18 [place] [address] [address] [place] [address] Cardiovascular Disease 06/14/23 documented as of this encounter
--- OUTSIDE RECORDS SUMMARY | 2024-04-08 10:40 | XMS_ITS | Patient Health Summary ---
Author Organization [facility] Address [address] [place] [address] Care Team Providers Care Quickbooks Bookkeeper Name Role Phone Vincent Ba MD Primary Care Provider [phone] Elías Cid MD Unavailable [phone] Rodrigo Henley MD Unavailable Unavailable Tricia Witt MD Unavailable [phone] Note from [facility],non-owned Affiliates and Associated Physician Practices is amultiple site organization consisting of ambulatory clinics and hospital sitesin [place], [place], [place] and [place]. This disclosure is being madepursuant to the Care Everywhere program and may not contain all information available regarding this patient. Last updated 17.[facility] Allergies No known active allergies Medications * Be aware that medications may not be up to date on this document. Alwaysverify current medications with the patient. * gabapentin (NEURONTIN) 300 MG capsule(Started 02/15/2015) Take 2 (two) capsules by mouth at bedtime 1 refill left * Multiple Vitamins-Minerals (ONE-A-DAY MENOPAUSE FORMULA PO) Take 1 tablet by mouth once daily * acetaminophen (Tylenol) 500 MG capsule(Started 07/02/2023) Take 2 (two) capsules by mouth 3 times daily Take for ten days then as needed. * oxyCODONE, immediate release, (Roxicodone) 10 MG tablet(Started 07/02/2023) Take 0.5 (one-half) tablet to 1 (one) tablet by mouth every 4 hours as needed for Pain (PAIN) * dilTIAZem coated beads 24hr (Cardizem CD) 240 MG capsule(Started 11/13/2023) Take 1 (one) capsule by mouth once daily Do not crush or chew. 3 refills by 11/12/2024 * atorvastatin (Lipitor) 40 MG tablet(Started 11/13/2023) Take 1 (one) tablet by mouth at bedtime 3 refills by 11/12/2024 * lisinopril-hydroCHLOROthiazide (Prinzide; Zestoretic) 20-12.5 MG tablet (Started 11/13/2023) Take 1 (one) tablet by mouth once daily 3 refills by 11/12/2024 * amitriptyline (Elavil) 25 MG tablet(Started 11/13/2023) Take 1 (one) tablet by mouth at bedtime Active Problems Problem Noted Date Diagnosed Date Arthritis of knee 07/02/2023 History of anemia 05/03/2022 PSVT (paroxysmal supraventricular tachycardia) 0 09/02/2021 History of total right knee replacement 05/25/19 Iron deficiency anemia 01/25/2021 Primary osteoarthritis of right knee 10/22/2020 Multiple gastric ulcers in 2017 06/15/2016 Palpitations 04/21/2016 Dyspnea on exertion 04/21/2016 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 Monthly or less 07/02/2023 Q2: How many drinks containi ng alcohol do you have on a typical day when you are drinking? Patient does not drink Q3: How often do you have si x or more drinks on one occasion? Never 07/02/2023 Overall Financial Resource Strain (CARDIA) Answe r Date Recorded How hard is it for you to pa y for the very basics like food, housing, medical care, and heating? Not hard at all 07/03/2023 PHQ-2 Answer Date Recorded Patient Health Questionnaire-2 Score 0 09/03/2023 [facility] Occupat ional Health - Occupational Stress Questionnaire Answer Date Recorded Do you feel stress - tense, restless, nervous, or anxious, or unable to sleep at night because your mind is troubled all the time - these days? Not at all 07/03/2023 Hunger Vital Sign Answer Date Recorded Within the past 12 months, y ou worried that your food would run out before you got the money to buy more. Never true 07/03/19 Within the past 12 months, t he food you bought just didn't last and you didn't have money to get more. Never true 07/03/2023 PRAPARE - Transportation Answer Date Re corded In the past 12 months, has l ack of transportation kept you from medical appointments or from getting medications? No 06/13 In the past 12 months, has l ack of transportation kept you from meetings, work, or from getting things needed for daily living? No 07/03/2023 Housing Stability Vital Sign Answer Elvin e Recorded In the last 12 months, was t here a time when you were not able to pay the mortgage or rent on time? No 07/03/2023 In the last 12 months, how many places have you lived? 1 07/03/2023 In the last 12 months, was t here a time when you did not have a steady place to sleep or slept in a skilled nursing (including now)? No 07/03/2023 Sex and Gender Information Value Date Recorded Sex Assigned at Not on file Gender Identity Not on file Sexual Orientation Not on file Last Filed Vital Signs Vital Sign Reading Time Taken Comments Blood Pressure 125/72 11/13/2023 10:37 AM CDT Pulse 91 11/13/2023 10:37 AM CDT Temperature 36.5 C (97.7 F) 07/03/2023 7:43 AM CDT Respiratory Rate 17 07/02/2023 4:15 PM CDT Oxygen Saturation 94% 07/03/2023 7:43 AM CDT Inhaled Oxygen Concentration - - Weight 83.6 kg (184 lb 3.2 oz) 11/13/2023 10:37 AM CDT Height 154.8 cm (5' 0.95 ) 11/13/2023 10:37 AM C DT Body Mass Index 34.87 11/13/2023 10:37 AM CDT Medical Devices Implanted Type Area Senior Credit Analyst Device Identifier Shelf Expiration Date Model / Serial / Lot Prem Bone Morton-G Hv 40/20 Implanted:Qty: 1 on 05/02/2021 by Augustus Davis MD at [facility] Right: Knee [employer] 06/02/2022 [id number] / / [id number] Tray Tib 71mm Kn Cocr I Beam Implanted:Qty: 1 on 05/02/2021 by Augustus Davis MD at [facility] Right: Knee [employer] 02/08/2031 [id number] / / [id number] Cmpnt Fem Kn Rt Cr Cmnt Prm Vngrd Intlk Implanted:Qty: 1 on 05/02/2021 by Augustus Davis MD at [facility] Right: Knee [employer] 03/07/2031 [id number] / / [id number] Cmpnt Ptlr 28mm 1 Pg Wire Ascnt Arcm Kn Implanted:Qty: 1 on 05/02/2021 by Augustus Davis MD at [facility] Right: Knee [employer] 08/26/2025 [id number] / / [id number] Brng [id number] Vngrd Arcm Kn Ant Stab Implanted:Qty: 1 on 05/02/2021 by Augustus Davis MD at [facility] Right: Knee [employer] 03/30/2026 [id number] / / [id number] Brng 50e10el Vngrd Vivacit-E Kn Ant Stab Implanted:Qty: 1 on 07/02/2023 by Augustus Davis MD at [facility] Left: Knee [employer] 04/18/2028 [id number] / / [id number] Cmnt Bone Plc R 40gm Grn Implanted:Qty: 1 on 07/02/2023 by Augustus Davis MD at [facility] Left: Knee [employer] 10/12/2025 [id number] / / [id number] Cmpnt Fem Kn Lt Cr Cmnt Prm Vngrd Intlk 62.5 Mm Implanted:Qty: 1 on 07/02/2023 by Augustus Davis MD at [facility] Left: Knee [employer] 04/29/2033 [id number] / / [id number] Cmpnt Ptlr Std 28mm 3 Pg Kn Ser A Implanted:Qty: 1 on 07/02/2023 by Augustus Davis MD at [facility] Left: Knee [employer] 04/18/2028 [id number] / / [id number] Tray Tib 67mm Kn Cocr I Beam Implanted:Qty: 1 on 07/02/2023 by Augustus Davis MD at [facility] Left: Knee [employer] 06/17/2032 [id number] / / [id number] Procedures * XR KNEE LEFT 3VW(Performed 08/14/2023) Performed for Aftercare following left knee joint replacement surgery * NEURAXIAL BLOCK(Performed 07/02/2023) * [facility] TOTAL KNEE REPLACEMENT(Performed 07/02/2023) * ECHO COMPLETE(Performed 06/15/2023) Performed for Essential hypertension, Preop testing * EKG 12-LEAD(Performed 05/28/2023) Performed for Preoperative examination * COMPREHENSIVE METABOLIC PANEL(Performed 05/28/2023) Performed for Preoperative examination * CBC W AUTO DIFFERENTIAL(Performed 05/28/2023) Performed for Preoperative examination * MRI KNEE LEFT WO CONTRAST(Performed 04/24/2023) Performed for Primary osteoarthritis of left knee, Internal derangement of left knee, Pes anserine bursitis, Other tear of meniscus of left knee as current injury, unspecified meniscus, initial encounter * XR KNEE LEFT 4VW OR MORE(Performed 04/11/2023) Performed for Primary osteoarthritis of left knee, Internal derangement of left knee, Pes anserine bursitis, Other tear of meniscus of left knee as current injury, unspecified meniscus, initial encounter * MAMMO BILAT SCREENING W REDDY(Performed 09/13/2022) Performed for Encounter for screening mammogram for malignant neoplasm of breast * XR KNEE RIGHT 3VW(Performed 06/23/2022) Performed for Aftercare following right knee joint replacement surgery * MAMMO BILAT SCREENING W REDDY(Performed 09/09/2021) Performed for Visit for screening mammogram * XR KNEE RIGHT 3VW(Performed 06/14/2021) Performed for Aftercare following right knee joint replacement surgery * VAS RIGHT VENOUS DUPLEX LE(Performed 05/24/2021) Performed for History of total right knee replacement, Right leg swelling * CREATININE BLOOD(Performed 05/04/2021) * NEURAXIAL BLOCK(Performed 05/02/2021) * ARTHROPLASTY TOTAL KNEE(Performed 05/02/2021) * CBC W AUTO DIFFERENTIAL (CANCER CARE)(Performed 04/28/2021) Performed for Iron deficiency anemia, unspecified iron deficiency anemia type * LAB(Performed 04/11/2021) * EKG 12-LEAD(Performed 04/05/2021) Performed for Pre-op evaluation * VITAMIN B12 FOLATE PANEL(Performed 04/05/2021) Performed for Pre-op evaluation * RETIC COUNT(Performed 04/05/2021) Performed for Pre-op evaluation * IRON + TRANSFERRIN PANEL(Performed 04/05/2021) Performed for Pre-op evaluation * FERRITIN(Performed 04/05/2021) Performed for Pre-op evaluation * COMPREHENSIVE METABOLIC PANEL(Performed 04/05/2021) Performed for Pre-op evaluation * CBC W AUTO DIFFERENTIAL(Performed 04/05/2021) Performed for Pre-op evaluation * HOLTER MONITOR(Performed 03/10/2021) Performed for Palpitations, Dyspnea on exertion * ECHOCARDIOGRAM 2D WITH DOPPLER(Performed 02/07/2021) Performed for Palpitations, Dyspnea on exertion * HELICOBACTER PYLORI UREASE (STL)(Performed 02/02/2021) Performed for Diagnosis unknown * PATHOLOGY TISSUE EXAM (STL)(Performed 02/02/2021) Performed for Diagnosis unknown * [facility] ED EGD FLEX TRANSORAL DX(Performed 02/02/2021) * EGD(Performed 02/02/2021) * XR KNEE RIGHT 3VW(Performed 09/06/2020) Performed for Primary osteoarthritis of right knee * MAMMO BILAT SCREENING(Performed 09/06/2020) Performed for Visit for screening mammogram * XR KNEE RIGHT 3VW(Performed 10/01/2019) Performed for Primary osteoarthritis of right knee, Pes anserine bursitis * XR LUMBAR SPINE 4VW OR MORE(Performed 10/01/2019) Performed for Lumbar radiculitis, Spinal stenosis of lumbar region, unspecified whether neurogenic claudication present * MAMMO BILAT SCREENING(Performed 09/05/2019) Performed for Screening for breast cancer * US BREAST LEFT LTD(Performed 08/09/2018) Performed for Abnormal mammogram * MAMMO LEFT DIAGNOSTIC(Performed 08/09/2018) Performed for Abnormal mammogram * MAMMO BILAT SCREENING(Performed 08/05/2018) Performed for Screening for breast cancer * MAMMO BILAT SCREENING(Performed 08/03/2017) Performed for Encounter for screening mammogram for breast cancer * MAMMO BILAT SCREENING(Performed 07/31/2016) Performed for Screening mammogram, encounter for * LAB(Performed 06/23/2016) * HELICOBACTER PYLORI UREASE (STL)(Performed 05/18/2016) Performed for Iron deficiency anemia, unspecified iron deficiency anemia type, Screen for colon cancer * PATHOLOGY TISSUE EXAM (STL)(Performed 05/18/2016) Performed for Iron deficiency anemia, unspecified iron deficiency anemia type, Screen for colon cancer * EGD(Performed 05/18/2016) * ENDOSCOPY, COLON, SCREENING(Performed 05/18/2016) * COLONOSCOPY SCREEN(Performed 05/18/2016) * ESOPHAGOGASTRODUODENOSCOPY (EGD) DIAGNOSTIC(Performed 05/18/2016) * CARDIAC PROCEDURE ORDER(Performed 05/11/2016) * PT-INR(Performed 05/10/2016) Performed for CAD, ? mild, Other iron deficiency anemia * CBC W AUTO DIFFERENTIAL(Performed 05/10/2016) Performed for CAD, ? mild, Other iron deficiency anemia * CARDIAC CATH(Performed 05/10/2016) * ECHOCARDIOGRAM STRESS(Performed 05/10/2016) Performed for CAD, ? mild * ECHOCARDIOGRAM STRESS(Performed 05/10/2016) Performed for Hypercholesteremia, CAD, ? mild * COMPREHENSIVE METABOLIC PANEL(Performed 04/21/2016) Performed for Hypercholesteremia, CAD, ? mild * CBC W AUTO DIFFERENTIAL(Performed 04/21/2016) Performed for Hypercholesteremia, CAD, ? mild * LIPID PROFILE(Performed 04/21/2016) Performed for Hypercholesteremia, CAD, ? mild * TSH(Performed 04/21/2016) Performed for Hypercholesteremia, CAD, ? mild * T4 FREE(Performed 04/21/2016) Performed for Hypercholesteremia, CAD, ? mild * CARDIAC EKG ORDER(Performed 04/21/2016) * PAP IG LB RFLX HPV APTIMA ASCU(Performed 03/02/2016) Performed for Screening for vaginal cancer, Menopausal symptom * MAMMO BILAT SCREENING(Performed 06/01/2015) Performed for Screening for breast cancer * PAIN MANAGEMENT PROCEDURE TIME(Performed 04/20/2015) Performed for Right lumbar radiculopathy * NM BONE SCAN MULTIPLE AREAS(Performed 04/16/2015) Performed for Tibial pain, Pain in joint, pelvic region and thigh, right * CT LUMBAR SPINE W CONTRAST(Performed 04/14/2015) Performed for Spinal stenosis of lumbar region, Arachnoiditis (HCC) * FL MYELOGRAM LUMBAR(Performed 04/14/2015) Performed for Spinal stenosis of lumbar region, Arachnoiditis (HCC) * XR TIBIA FIBULA RIGHT 2VW(Performed 03/08/2015) Performed for Pain in joint, lower leg, right * PAIN MANAGEMENT PROCEDURE TIME(Performed 03/08/2015) Performed for Lumbar stenosis * MRI LUMBAR SPINE WO CONTRAST(Performed 03/04/2015) Performed for Lumbar stenosis, HNP (herniated nucleus pulposus), lumbar, Lumbar radiculopathy * PAIN MANAGEMENT PROCEDURE TIME(Performed 02/24/2015) Performed for Lumbar stenosis * PAIN MANAGEMENT PROCEDURE TIME(Performed 11/04/2014) Performed for Spinal stenosis, lumbar region, without neurogenic claudication, Thoracic or lumbosacral neuritis or radiculitis, unspecified, Lumbosacral spondylosis without myelopathy * PAIN MANAGEMENT PROCEDURE TIME(Performed 06/04/2014) Performed for Spinal stenosis, lumbar region, without neurogenic claudication, Thoracic or lumbosacral neuritis or radiculitis, unspecified * MRI LUMBAR SPINE WWO CONTRAST(Performed 06/02/2014) Performed for Displacement of lumbar intervertebral disc without myelopathy, Thoracic or lumbosacral neuritis or radiculitis, unspecified, Spinal stenosis, lumbar region, without neurogenic claudication * CREATININE BLOOD - POINT OF CARE (IP)(Performed 06/02/2014) * MAMMO BILAT SCREENING(Performed 04/02/2014) Performed for Routine gynecological examination * MAMMO BILAT SCREENING(Performed 01/24/2013) Performed for Other screening mammogram * EKG 12-LEAD(Performed 10/02/2012) Performed for CAD (coronary artery disease) * US BREAST LEFT COMPLETE(Performed 01/17/2012) Performed for Abnormal mammogram, unspecified * MAMMO BILAT DIAGNOSTIC(Performed 01/17/2012) Performed for Abnormal mammogram * MAMMO BILAT SCREENING(Performed 01/08/2012) Performed for Routine gynecological examination * URINALYSIS - POINT OF CARE(Performed 10/13/2011) Performed for Urinary tract infection, site not specified * CULTURE URINE COMPREHENSIVE(Performed 10/13/2011) Performed for Urinary tract infection, site not specified * PAP IG INV HPV RFLX KIN(Performed 10/13/2011) Performed for Routine gynecological examination, Special screening examination for human papillomavirus (HPV) * PAP IG RFLX HPV ASCU(Performed 10/10/2010) Performed for Routine gynecological examination * MAMMO BILAT SCREENING(Performed 12/20/2009) Performed for Routine gynecological examination * PAP THINPREP REFLX HPV MRNA E6/E7(Performed 10/08/2009) Performed for Routine Gynecological Examination * MAMMO BILAT SCREENING(Performed 12/07/2008) Performed for Routine Gynecological Examination * PAP IG RFLX HPV ASCU(Performed 10/06/2008) Performed for Routine Gynecological Examination Results * XR KNEE LEFT 3VW (08/14/2023 11:14 AM CDT) Narrative [facility] [address] - 08/14/2023 11:14 AM CDT Please see progress note in Epic for results. Augustus Davis MD DIAGNOSTIC IMAGING O RDERABLES [facility] [address] * Neuraxial Block (07/02/2023 7:34 AM CDT) Narrative Pedro Mas APRN-CRNA - 07/02/2023 7:34 AM CDT Pedro Mas APRN-CRNA 07/02/2023 7:35 AM Neuraxial Block Note Pre-Procedure: Procedure Name: Neuraxial Block Patient Location: OR Indications: surgical anesthesia Pre-Anesthetic Checklist: Patient identified, IV Checked, Risks and benefits discussed, Surgical consent verified, Monitors and equipment, Site examined, Pre-op evaluation done, Informed consent obtained, Questions answered/anesthesia questions answered and Allergies reviewed Anticoagulation/ Anti-thrombosis status confirmed? Yes Supplemental O2: room air Monitors: BP and continuous pluse ox Patient Condition: sedated, meaningful contact maintained throughout procedure Patient Sedated? Nursing sedation administration Sedation Type: mild Sedation Agents (manual): versed fentanyl mL Procedure: Block Type: Spinal Prep: Betadine Sterile Field: mask, cap/hat, sterile established and sterile gloves Approach: right paramedian Skin was localized? Nursing documentation on [facility] Skin localized with: Lidocaine 1% and 1 mL Spinal Block: Needle Type: spinal needle Needle Gauge: 22 Needle Length: 90 mm Placement Site: L3-4 Number of Attempts: 1 CSF: free flow, aspiration before injection Local anesthetics used? Nursing documentation on the [facility] Spinal Local Anesthetic: Bupivacaine: 0.75% in dextrose 2 mL Degree of difficulty: none Procedure Tolerance: tolerated well performed while the patient was sedated Sensory Level: lower level Motor Blockade: Yes Position post procedure: supine Vital Signs: Vital signs monitored and stable throughout. See anesthesia record for details. Start Time: 07/02/2023 6:59 AM End Time: 07/02/2023 7:05 AM Total Time: 6 Staff: Anesthesia Provider: Pedro Mas APRN-MANAGER NEONATAL - performed the procedure Charles Javier MD GENERAL ANESTHESIA O RDERABLES * ECHO COMPLETE (06/15/2023 3:16 PM CDT) BSA 1.6296806 m2 SSM CV FUJ I PACS LV biplane EF 70 54 - 74 % SSM CV FUJI PACS LV A2C EF 63 52 - 76 % SSM CV FUJ I PACS LV A4C EF 75 46 - 78 % SSM CV FUJ I PACS LV stroke vol BP 29.7 mL SSM CV FUJI PACS LV stroke vol BP index 15.7 mL/m2 SSM CV FUJI PACS LVOT stroke vol 79.43 mL SSM CV FUJI PACS LVOT stroke vol index 41.93 mL/m2 SSM CV FUJI PACS LV stroke vol 2D teich 56.398 ml SSM CV FUJI PACS LV Stroke Index 2D Teich 29.77 mL/m2 SSM CV FUJI PACS LV stroke vol index A4C MOD 46.639 ml/m2 SSM CV FUJI PACS AV envelope time 281 ms SSM CV FUJI PACS LVOT envelope time 295 ms SSM CV FUJI PACS LVIDd 4.22 3.8 - 5.2 cm SSM CV FUJI PACS IVSd MM 1.18 0.6 - 0.9 cm SSM CV FUJI PACS LVIDs 2.53 2.2 - 3.5 cm SSM CV FUJI PACS IVSd 2D 1.315 0.6 - 0.9 cm SSM CV FUJI PACS LVPWd 1.47 0.6 - 0.9 cm SSM CV FUJI PACS LVPWs M-Mode 1.284 cm SSM CV FUJI PACS Fractional Shortening 2D 40 28 - 44 % SSM CV FUJI PACS LV ESV BP 12.704 14 - 42 mL SSM CV FUJI PACS LV ESV index BP 6.7 8 - 24 mL/m2 SSM CV FUJI PACS LV ESV A2C 15.378 10 - 54 mL SSM CV FUJI PACS LV ESV index A2C 8.12 6 - 30 mL/m2 SSM CV FUJI PACS LV EDV BP 42.393 46 - 106 mL SSM CV FUJI PACS LV ESV A4C 9.642 12 - 60 mL SSM CV FUJI PACS LV ESV index A4C 5.09 7 - 35 mL/m2 SSM CV FUJI PACS LV EDV index BP 22.4 29 - 61 mL/m2 SSM CV FUJI PACS LV EDV A2C 26.251 41 - 133 mL SSM CV FUJI PACS LV EDV index A2C 13.86 26 - 74 mL/m2 SSM CV FUJI PACS LV EDV A4C 62.016 mL SSM CV FU JI PACS LV ESV 2D 22.903 14 - 42 mL SSM CV FUJI PACS LV EDV index A4C 32.74 30 - 82 mL/m2 SSM CV FUJI PACS LV ESV index 2D 12.09 8 - 24 mL/m2 SSM CV FUJI PACS LV EDV 2D 79.301 46 - 106 mL SSM CV FUJI PACS LV EDV index 2D 41.86 29 - 61 mL/m2 SSM CV FUJI PACS LVOT diam 2.3 cm SSM CV FUJ I PACS LVOT area 4.16 cm2 SSM CV FUJ I PACS LV RWT 0.699 SSM CV FUJ I PACS LV Morales A2C 6.314 cm SSM CV F UJI PACS LV Morales A4C 7.145 cm SSM CV F UJI PACS IVS/LVPW 0.892 SSM CV FUJ I PACS Fractional Shortening M-Mode 45 28 - 44 % SSM CV FUJ I PACS LV mass m-mode 170.107 67 - 162 g SSM CV FUJI PACS LV mass index m-mode 89.79 43 - 95 g/m2 SSM CV FUJI PACS LV mass 2D 224.351 66 - 150 g SSM CV FUJI PACS LV mass index 2D 118.42 44 - 88 g/m2 SSM CV FUJI PACS MV E pk chanelle 100.211 cm/s SSM CV F UJI PACS MV avg E/e' ratio 15.30 SS M CV FUJI PACS MV A pk chanelle 103.055 cm/s SSM CV F UJI PACS MV E A ratio 0.97 SSM CV FUJI PACS MV E' lateral chanelle 6.158 cm/s SS M CV FUJI PACS MV DT 206 ms SSM CV FUJ I PACS MV E' septal chanelle 6.997 cm/s SSM CV FUJI PACS MV E/e' septal 14.321 SSM C V FUJI PACS MV E/e' lateral 16.273 SSM CV FUJI PACS TR pk chanelle 303.7 cm/s SSM CV FUJ I PACS LVOT pk chanelle 1.02 m/s SSM CV F UJI PACS LVOT mn chanelle 0.65 m/s SSM CV F UJI PACS LVOT mn grad 1.9 mmHg SSM CV FUJI PACS GPLS AVG -19.2 % SSM CV FUJ I PACS GPLS A2C -16.7 % SSM CV FUJ I PACS GPLS A4C -19.0 % SSM CV FUJ I PACS GPLS APLAX -22.0 % SSM CV FU JI PACS AA pk sys strain -21.7 % SSM CV FUJI PACS AAS pk sys strain -28.5 % SS M CV FUJI PACS AI pk sys strain -23.4 % SSM CV FUJI PACS AL pk sys strain -23.6 % SSM CV FUJI PACS AP pk sys strain -22.6 % SSM CV FUJI PACS pk sys strain -26.5 % SSM CV FUJI PACS BA pk sys strain -12.9 % SSM CV FUJI PACS BAS pk sys strain -24.8 % SS M CV FUJI PACS BI pk sys strain -12.0 % SSM CV FUJI PACS BL pk sys strain -14.0 % SSM CV FUJI PACS BS pk sys strain -13.4 % SSM CV FUJI PACS MA pk sys strain -14.7 % SSM CV FUJI PACS MAS pk sys strain -27.1 % SS M CV FUJI PACS AZ pk sys strain -16.1 % SSM CV FUJI PACS ML pk sys strain -15.3 % SSM CV FUJI PACS MP pk sys strain -15.2 % SSM CV FUJI PACS MS pk sys strain -18.0 % SSM CV FUJI PACS LA area A4C 12.13 20 cm2 SSM CV F UJI PACS LA size 3.471 2.7 - 3.8 cm SSM CV FUJI PACS LA vol BP A-L 31.306 mL SSM CV FUJI PACS RV-morales basal diam 3.4 2.5 - 4.1 cm SSM CV FUJI PACS RV-morales longitudinal diam 5.8 5.9 - 8.3 cm SSM CV FUJI PACS RVIDd 3.3 cm SSM CV FUJ I PACS TAPSE 1.978 1.7 cm SSM CV FUJ I PACS RA area 8.837 cm2 SSM CV FUJ I PACS AV mn grad 4 mmHg SSM CV FU JI PACS AV pk grad 9 mmHg SSM CV FU JI PACS AV mn chanelle 0.98 m/s SSM CV FUJ I PACS AV pk chanelle 1.51 m/s SSM CV FUJ I PACS AV VTI 27.6 cm SSM CV FUJ I PACS LVOT pk grad 4.175 mmHg SSM CV FUJI PACS LVOT VTI 19.117 cm SSM CV FUJ I PACS AV area cont VTI 2.9 cm2 SSM CV FUJI PACS AV area pk chanelle 2.8 cm2 SSM C V FUJI PACS AV Doppler chanelle index pk chanelle 0.675 SSM CV FUJI PACS AV closure time 0.3 s SSM CV FUJI PACS Dimensionless Index 0.693 SSM CV FUJI PACS MV mn grad 2 mmHg SSM CV FU JI PACS MV pk grad 5 mmHg SSM CV FU JI PACS MV mn chanelle 0.61 m/s SSM CV FUJ I PACS MV pk chanelle 108.743 cm/s SSM CV FUJ I PACS MV PHT 52 ms SSM CV FUJ I PACS MV area PHT 4.26 cm2 SSM CV F UJI PACS MV area cont eq 2.70 cm2 SSM CV FUJI PACS MV VTI 29.432 cm SSM CV FUJ I PACS MV decel slope 481.917 cm/s2 SSM C V FUJI PACS sPAP 39.9 mmHg SSM CV FUJ I PACS RVSP 39.9 mmHg SSM CV FUJ I PACS RAP 3.0 mmHg SSM CV FUJ I PACS TR pk grad 37 mmHg SSM CV FU JI PACS dPAP 10.7 mmHg SSM CV FUJ I PACS VA pk chanelle 139.062 cm/s SSM CV FUJ I PACS VA pk grad 8 mmHg SSM CV FU JI PACS PV pk chanelle 91.838 cm/s SSM CV FUJ I PACS PV pk grad 3 mmHg SSM CV FU JI PACS Aortic arch 2.374 cm SSM CV F UJI PACS Sinus of Valsalva 3.28 cm SS M CV FUJI PACS Sinus of valsalva index 1.73 cm/m2 SSM CV FUJI PACS IVC size 1.5 cm SSM CV FUJ I PACS LA ESV A4C MOD Index 14 ml/m2 SSM CV FUJI PACS LA ESV A2C MOD Index 16 ml/m2 SSM CV FUJI PACS [id number] 5.987 cm SSM CV FUJ I PACS [id number] 5.135 cm SSM CV FUJ I PACS Ao Root Diam Index (2D) 1.73 cm SSM CV FUJI PACS LA AREA (2C) 12.399 SSM CV FUJI PACS EF M-Mode 76 % SSM CV FUJ I PACS LA Size 3.471 cm SSM CV FUJ I PACS LVIDs index 1.33 1.3 - 2.1 cm/m2 SSM CV FUJI PACS LV LVIDd index 2.23 2.3 - 3.1 cm/m2 SSM CV FUJI PACS Systolic Blood Pressure 108 SSM CV FUJI PACS Anatomical Region Laterality Modality Ultrasound Narrative 06/18/2023 11:37 AM CDT Left Ventricle: Left ventricle size is normal. Mildly increased wall thickness. Normal systolic function with a visually estimated EF of 55 - 60%. Normal wall motion. Grade I diastolic dysfunction with normal left atrial pressure. Tricuspid Valve: Trace regurgitation. Pericardium: Evidence of prominent fat pad. Right Ventricle: Right ventricle size is upper limits of normal. Mildly increased free wall thickness. Low normal systolic function.? calcification near apex.? Left Ventricle Left ventricle size is normal. Mildly increased wall thickness. Normal systolic function with a visually estimated EF of 55 - 60%. Normal wall motion. Grade I diastolic dysfunction with normal left atrial pressure. Right Ventricle Right ventricle size is upper limits of normal. Mildly increased free wall thickness. Low normal systolic function. Left Atrium Left atrium size is normal. Right Atrium Right atrium size is normal. IVC/SVC IVC diameter is less than or equal to 21 mm and decreases greater than 50% during inspiration; therefore the estimated right atrial pressure is normal (~3 mmHg). Mitral Valve Valve structure is normal. No restricted motion. Trace regurgitation. No stenosis. Tricuspid Valve Valve structure is normal. No restricted motion. Trace regurgitation. No stenosis. Aortic Valve Valve structure is trileaflet. No restricted motion. No regurgitation. No stenosis. Pulmonic Valve Valve structure is normal. No restricted motion. No regurgitation. No stenosis. Ascending Aorta Normal sized sinus of Valsalva (aortic root) and ascending aorta. Pericardium Evidence of prominent fat pad. No pericardial effusion. Study Details Study quality was adequate. A complete 2D, color Doppler, spectral Doppler and M-mode echocardiogram was performed. The apical, parasternal, subcostal and suprasternal views were obtained. Patient exhibited sinus rhythm. Procedure Note Kodak Campbell MD - 06/18/2023 Left Ventricle: Left ventricle size is normal. Mildly increased wallthickness. Normal systolic function with a visually estimated EF of 55 -60%. Normal wall motion. Grade I diastolic dysfunction with normal leftatrial pressure. Tricuspid Valve: Trace regurgitation. Pericardium: Evidence of prominent fat pad. Right Ventricle: Right ventricle size is upper limits of normal. Mildlyincreased free wall thickness. Low normal systolic function.?calcification near apex.? Vincent Ba MD [facility] * EKG 12-LEAD (05/28/2023 12:20 PM CDT) Only the most recent of3 resultswithin the time period is included. Ventricular Rate 88 BPM [facility] Atrial Rate 88 BPM [facility] P-R Interval 162 ms [facility] QRS Duration ms 68 ms [facility] Q-T Interval ms 322 ms [facility] QTC Calculation (Bezet) 389 ms [facility] Calculated P [place] 37 degrees [facility] Calculated R [place] 1 degrees [facility] Calculated T [place] 15 degrees [facility] Interpretation EKG Normal sinus rhythm Cannot rule out Anterior infarct , age undetermined Abnormal ECG Confirmed by GUERITA NEIL MD ([id number]) on 05/29/2023 7:00:01 PM [facility] 05/28/2023 12:2 0 PM CDT 05/29/2023 7:00 PM CDT Carolina Beckett DO ECG ORDERABLES [facility] * CBC W AUTO DIFFERENTIAL (05/28/2023 12:19 PM CDT) Only the most recent of4 resultswithin the time period is included. WBC 10.2 4.0 - 10.7 x10E9/L 05/28/2023 12:31 PM CDT [facility] RBC Count 4.75 3.90 - 5.20 x10E12/L 05/28/2023 12:31 PM CDT [facility] Hemoglobin 13.3 11.9 - 15.8 g/dL 05/28/2023 12:31 PM CDT [facility] Hematocrit 40.3 34.8 - 46.1 % 05/28/2023 12:31 PM CDT [facility] MCV 84.8 80.0 - 98.0 fL 05/28/2023 12:31 PM CDT [facility] MCH 28.0 26.7 - 33.6 pg 05/28/2023 12:31 PM CDT [facility] MCHC 33.0 31.7 - 36.3 g/dL 05/28/2023 12:31 PM CDT [facility] RDW-CV 14.0 11.3 - 14.8 % 05/28/2023 12:31 PM CDT [facility] Platelet Count 351 150 - 420 x10E9/L 05/28/2023 12:31 PM CDT [facility] MPV 9.2 7.8 - 11.4 fL 05/28/2023 12:31 PM CDT [facility] Neutrophil % 71.1 41.0 - 74.0 % 05/28/2023 12:31 PM CDT [facility] Lymphocyte % 17.8 17.0 - 47.0 % 05/28/2023 12:31 PM CDT [facility] Monocyte % 8.4 3.0 - 11.0 % 05/28/2023 12:31 PM CDT [facility] Eosinophil % 2.1 0.0 - 7.0 % 05/28/2023 12:31 PM CDT [facility] Basophil % 0.4 0.0 - 1.6 % 05/28/2023 12:31 PM CDT [facility] Immature Granulocytes % 0.2 0.0 - 1.0 % 05/28/2023 12:31 PM CDT [facility] Neutrophil Absolute 7.26 1.60 - 7.50 x10E9/L 05/28/2023 12:31 PM CDT [facility] Lymphocyte Absolute 1.82 1.00 - 4.40 x10E9/L 05/28/2023 12:31 PM CDT [facility] Monocyte Absolute 0.86 0.15 - 1.00 x10E9/L 05/28/2023 12:31 PM CDT [facility] Eosinophil Absolute 0.21 0.00 - 0.60 x10E9/L 05/28/2023 12:31 PM CDT [facility] Basophil Absolute 0.04 0.00 - 0.13 x10E9/L 05/28/2023 12:31 PM CDT [facility] Blood BLOOD SPECIMEN / Unknown Venipuncture / Unknown 05/28/2023 12:19 PM CDT 05/28/2023 12:24 PM CDT Shonda Shore [employer]-FILM CRITIC LAB - HEMATOLOGY ORDERABLES [facility] [address] [place] [address] * (ABNORMAL) COMPREHENSIVE METABOLIC PANEL (05/28/2023 12:19 PM CDT) Only the most recent of3 resultswithin the time period is included. Glucose 93 70 - 105 mg/dL 05/28/2023 12:40 PM CDT [facility] Sodium 141 136 - 145 mmol/L 05/28/2023 12:40 PM CDT [facility] Potassium 4.6 3.5 - 5.1 mmol/L 05/28/2023 12:40 PM CDT [facility] Chloride 102 98 - 107 mmol/L 05/28/2023 12:40 PM CDT [facility] CO2 27 22 - 29 mmol/L 05/28/2023 12:40 PM CDT [facility] Calcium 10.1 8.4 - 10.4 mg/dL 05/28/2023 12:40 PM CDT [facility] Anion Gap 12 6 - 16 mmol/L 05/28/2023 12:40 PM CDT [facility] BUN 29(H) 7 - 26 mg/dL 05/28/2023 12:40 PM CDT [facility] Creatinine 1.44(H) 0.57 - 1.11 mg/dL 05/28/2023 12:40 PM CDT [facility] Alkaline Phosphatase 105 40 - 150 U/L 05/28/2023 12:40 PM CDT [facility] ALT 16 0 - 55 U/L 05/28/2023 12:40 PM CDT [facility] AST 18 5 - 34 U/L 05/28/2023 12:40 PM CDT [facility] Protein Total 7.8 6.4 - 8.3 gm/dL 05/28/2023 12:40 PM CDT [facility] Albumin 4.1 3.4 - 5.0 gm/dL 05/28/2023 12:40 PM CDT [facility] Bilirubin Total 0.5 0.2 - 1.2 mg/dL 05/28/2023 12:40 PM CDT [facility] eGFR by CKD-EPI 38(L) >=90 mL/min/1.7 3 m2 05/28/2023 12:40 PM CDT [facility] Blood BLOOD SPECIMEN / Unknown Venipuncture / Unknown 05/28/2023 12:19 PM CDT 05/28/2023 12:24 PM CDT Shonda Shore [employer]-FILM CRITIC LAB - CHEMISTRY O RDERABLES [facility] [address] [place] [address] * MRI KNEE LEFT WO CONTRAST (04/24/2023 9:37 AM CDT) Anatomical Region Laterality Modality Lower Extremity Magnetic Resonan ce 04/25/2023 9:40 AM CDT Impressions 04/25/2023 9:44 AM CDT IMPRESSION: Degenerative change with full-thickness tear far posterior horn medial meniscus. Mild blunting mid body medial meniscus. Medial subluxation medial meniscus. Fraying of the free edge of the mid body of the lateral meniscus without focal full-thickness tear laterally. Intact cruciate and collateral ligaments. Advanced degenerative arthritic change medial compartment, moderate to advanced degenerative change patellofemoral compartment. Mild degenerative change laterally. Moderate volume joint effusion. > Interpreting Provider: Rick Iqbal MD on 04/25/2023 9:44 AM Narrative 04/25/2023 9:44 AM CDT PROCEDURE: MRI KNEE LEFT WO CONTRAST DATE/TIME OF EXAM: 04/24/2023 9:37 AM CLINICAL INFORMATION: None relevant/not provided if blank. Indication: M17.12: Unilateral primary osteoarthritis, left knee M23.92: Unspecified internal derangement of left knee M70.50: Other bursitis of knee, unspecified knee S83.204A: Other tear of unspecified meniscus, current injury, left knee, initial encounter Additional History: Persistent medial left knee pain and reduced range of motion. COMPARISON: Recent plain films. TECHNIQUE: MRI of the left knee was performed without contrast. FINDINGS: Examination of the medial compartment reveals relatively advanced degenerative arthritic change medial compartment. There is reactive marrow edema medial femoral condyle and medial tibial plateau. There is degenerative change with degenerative tear far posterior horn medial meniscus with medial subluxation medial meniscus. Fibers of the posterior root ligament are visualized. There is blunting of the free edge of the mid body of the medial meniscus. No other medial meniscus tear identified. There is thickening medial collateral ligament. Examination of the lateral compartment reveals degenerative change with fraying of the free edge of the mid body of the lateral meniscus. No discrete or full-thickness lateral meniscus tear identified. Lateral collateral ligament is intact. Popliteus tendon is intact. There is relatively mild degenerative change lateral compartment. Anterior and posterior cruciate ligament are intact. Extensor mechanism is intact. There is degenerative change patellofemoral compartment primarily medially. There is multilevel articular cartilage thinning and subchondral cyst formation within the medial and lateral femoral trochlea. Moderate volume joint effusion. No soft tissue mass. Procedure Note Rick Iqbal MD - 04/25/2023 PROCEDURE: MRI KNEE LEFT WO CONTRAST DATE/TIME OF EXAM: 04/24/2023 9:37 AM CLINICAL INFORMATION: None relevant/not provided if blank. Indication: M17.12: Unilateral primary osteoarthritis, left knee M23.92: Unspecified internal derangement of left knee M70.50: Other bursitis of knee, unspecified knee S83.204A: Other tear of unspecified meniscus, current injury, left knee, initial encounter Additional History: Persistent medial left knee pain and reduced rangeof motion. COMPARISON: Recent plain films. TECHNIQUE: MRI of the left knee was performed without contrast. FINDINGS: Examination of the medial compartment reveals relatively advanced degenerative arthritic change medial compartment. There is reactivemarrow edema medial femoral condyle and medial tibial plateau. There is degenerative change with degenerative tear far posterior horn medial meniscus with medial subluxation medial meniscus. Fibers of theposterior root ligament are visualized. There is blunting of the free edge of themid body of the medial meniscus. No other medial meniscus tear identified. There is thickening medial collateral ligament. Examination of the lateral compartment reveals degenerative change with fraying of the free edge of the mid body of the lateral meniscus. No discrete or full-thickness lateral meniscus tear identified. Lateral collateral ligament is intact. Popliteus tendon is intact. There is relatively mild degenerative change lateral compartment. Anterior and posterior cruciate ligament are intact. Extensor mechanismis intact. There is degenerative change patellofemoral compartmentprimarily medially. There is multilevel articular cartilage thinning andsubchondral cyst formation within the medial and lateral femoral trochlea. Moderate volume joint effusion. No soft tissue mass. IMPRESSION: Degenerative change with full-thickness tear far posterior horn medial meniscus. Mild blunting mid body medial meniscus. Medial subluxationmedial meniscus. Fraying of the free edge of the mid body of the lateral meniscus without focal full-thickness tear laterally. Intact cruciate and collateral ligaments. Advanced degenerative arthritic change medial compartment, moderate to advanced degenerative change patellofemoral compartment. Milddegenerative change laterally. Moderate volume joint effusion. > Interpreting Provider: Rick Iqbal MD on 04/25/2023 9:44 AM Elías Cid MD MR ORDERABLES * XR KNEE 4+ VW LEFT (04/11/2023 10:48 AM MOLD SPRAYER) Anatomical Region Laterality Modality Lower Extremity Radiographic Bernice ging 04/11/2023 1:01 PM MOLD SPRAYER Impressions 04/11/2023 1:32 PM MOLD SPRAYER IMPRESSION: Degenerative changes. Edited by Jennifer Gallo on 04/11/2023 1:09 PM > Interpreting Provider: Basil Nava MD on 04/11/2023 1:32 PM Narrative 04/11/2023 1:32 PM MOLD SPRAYER PROCEDURE: XR KNEE LEFT 4VW OR MORE DATE/TIME OF EXAM: 04/11/2023 10:49 AM CLINICAL INFORMATION: None relevant/not provided if blank. Indication: M17.12: Unilateral primary osteoarthritis, left knee. M23.92: Unspecified internal derangement of left knee. M70.50: Other bursitis of knee, unspecified knee. S83.204A: Other tear of unspecified meniscus, current injury, left knee, initial encounter. Additional History: COMPARISON: None. FINDINGS: Four views of the left knee show tricompartmental osteoarthritis with joint space narrowing and some minimal spurring. There is no acute fracture or subluxation. Procedure Note Basil Nava MD - 04/11/2023 PROCEDURE: XR KNEE LEFT 4VW OR MORE DATE/TIME OF EXAM: 04/11/2023 10:49 AM CLINICAL INFORMATION: None relevant/not provided if blank. Indication: M17.12: Unilateral primary osteoarthritis, left knee. M23.92: Unspecified internal derangement of left knee. M70.50: Other bursitis of knee, unspecified knee. S83.204A: Other tear of unspecified meniscus, current injury, left knee, initial encounter. Additional History: COMPARISON: None. FINDINGS: Four views of the left knee show tricompartmental osteoarthritis withjoint space narrowing and some minimal spurring. There is no acute fracture or subluxation. IMPRESSION: Degenerative changes. Edited by Jennifer Gallo on 04/11/2023 1:09 PM > Interpreting Provider: Basil Nava MD on 04/11/2023 1:32 PM Elías Cid MD DIAGNOSTIC IMAGING O RDERABLES * MAMMO BILAT SCREENING W REDDY (09/13/2022 9:14 AM CDT) Only the most recent of2 resultswithin the time period is included. Anatomical Region Laterality Modality Breast Bilateral Mammography 09/13/2022 10:2 6 AM CDT Impressions 09/13/2022 10:27 AM CDT : Annual screening mammography is recommended. OVERALL FINAL ASSESSMENT: BI-RADS Category 1: Negative. > Interpreting Provider: Fely Waldron MD on 09/13/2022 10:27 AM Narrative 09/13/2022 10:27 AM CDT EXAMINATION: BILATERAL DIGITAL SCREENING MAMMOGRAM AND BILATERAL BREAST TOMOSYNTHESIS HISTORY: Screening. COMPARISON: Serial examinations dating back to 08/05/2018 TECHNIQUE: BILATERAL digital breast tomosynthesis (DBT) and synthetic 2D digital mammogram images were obtained (bilateral craniocaudal and mediolateral oblique projections) including computer aided detection (CAD.) BREAST PARENCHYMAL COMPOSITION: Category B: There are scattered areas of fibroglandular density. MAMMOGRAM FINDINGS: There is no suspicious finding in either breast. Overall, there has been no significant interval change. Carlos Desouza MD MAMMO ORDERABLES * XR KNEE RIGHT 3VW (06/23/2022 9:23 AM CDT) Only the most recent of4 resultswithin the time period is included. Anatomical Region Laterality Modality Lower Extremity Computed Radiogr aphy Narrative 06/23/2022 9:24 AM CDT Roxie Browning E, RT(R) 06/23/2022 2:32 PM See progress notes for results Augustus Davis MD DIAGNOSTIC IMAGING O RDERABLES * VAS RIGHT VENOUS DUPLEX LE (05/24/2021 10:50 AM CDT) Anatomical Region Laterality Modality Lower Extremity Ultrasound 05/24/2021 10:3 9 AM CDT Narrative Procedure Note Ino Gilliland MD - 05/24/2021 [facility] [place] [address], [address] [place] [address] Lower Extremity Venous Ultrasound Report Pat.Name: TAMIA ZHAO Pat.ID: [id number] .Date: 05/24/2021 Refer.MD: Elida York Exam Time: 10:39:00 AM Study Type:LE Venous Age: 10 1950,70Y Sex: FEMALE Sonogrphr: Mikal London RVT Pat. Stat.:Outpatient CPT - 4: 29196 Reason for Study: Swelling -Leg, right, Pain -Leg, right Procedures: Lower Extremity Venous - Right Race: 1 Visit ID: [id number] ++++++++++++++++++++++++++++++++++++ SUMMARY: ++++++++++++++++++++++++++++++++++++ There is no evidence of an acute deep or superficial venous thrombosis in the right lower extremity. ++++++++++++++++++++++++++++++++++++ FINDINGS: ++++++++++++++++++++++++++++++++++++ Procedure: Venous duplex imaging of the right lower extremity was performed using color flow and spectral Doppler analysis. The contralateral common femoral vein was also examined. Study Quality: This study is of adequate technical quality. Rt Leg: All vessels seen appear patent and compressible. There was spontaneous and phasic flow seen in all the major veins of the right lower extremity. Appropriate augmentation with distal compression. No evidence of reflux with proximal compression. Comments: There is a zheng's cyst seen behind the right popliteal fossa. Signed 05/24/2021 04:00 PM Ino Gilliland MD Elida York PA-C VASCULAR LAB ORDERABLES * (ABNORMAL) CREATININE BLOOD (05/04/2021 11:51 AM CDT) Creatinine 1.22(H) 0.57 - 1.11 mg/dL 05/04/2021 12:27 PM CDT [facility] eGFR by CKD-EPI 47(L) >=90 mL/min/1.7 3 m2 05/04/2021 12:27 PM CDT [facility] Blood BLOOD SPECIMEN / Unknown Venipuncture / Unknown 05/04/2021 11:51 AM CDT 05/04/2021 12:01 PM CDT Narrative [facility] - 05/04/2021 12:27 PM CDT eGFR result was calculated using the updated CKD-EPI Creatinine Equations (2020). Prior to go live 2021 the eGFR was calculated using the MDRD calculation. Please note Reference Range change. Tiny Fountain MD LAB - CHEMISTRY LIBRADO COUCH [facility] Organization Address City/State/ZIP Co de Phone Number [facility] [address] [place] [address] * Neuraxial Block (05/02/2021 11:08 AM CDT) Narrative London Schmid MD - 05/02/2021 11:08 AM CDT Heath Villarreal APRN-CRNA 05/02/2021 11:09 AM Neuraxial Block Note Pre-Procedure: Procedure Name: Neuraxial Block Patient Location: OR Monitors: continuous pluse ox Patient Condition: sedated, meaningful contact maintained throughout procedure Procedure: Block Type: Spinal Prep: Betadine Approach: right paramedian Spinal Block: Needle Type: spinal needle Needle Gauge: 22 Needle Length: 90 mm Placement Site: L3-4 Number of Attempts: Other - please comment (mult) Degree of difficulty: moderate Procedure Tolerance: tolerated well Staff: Anesthesia Provider: Heath Villarreal APRN-CRNA - performed the procedure Eligio Kilgore DO GENERAL ANESTHESIA O RDERABLES * (ABNORMAL) CBC W AUTO DIFFERENTIAL (CANCER CARE) (04/28/2021 8:59 AM CDT) WBC 5.7 4.4 - 10.7 x10E9/L 04/28/2021 9:11 AM CDT [facility] Neutrophils % 63.2 44.0 - 73.0 % 04/28/2021 9:11 AM CDT [facility] Lymphocytes % 21.7 20.0 - 43.0 % 04/28/2021 9:11 AM CDT [facility] Monocytes % 10.9 5.0 - 13.0 % 04/28/2021 9:11 AM CDT [facility] Eosinophils % 3.7 0.0 - 7.0 % 04/28/2021 9:11 AM CDT [facility] Basophils % 0.5 0.0 - 2.0 % 04/28/2021 9:11 AM CDT [facility] Neutrophil Absolute 3.58 2.01 - 7.14 x10E9/L 04/28/2021 9:11 AM CDT [facility] Lymphocytes Absolute 1.23 1.07 - 3.94 x10E9/L 04/28/2021 9:11 AM CDT [facility] Monocytes Absolute 0.62 0.26 - 1.07 x10E9/L 04/28/2021 9:11 AM CDT [facility] Eosinophils Absolute 0.21 0 - 0.47 x10E9/L 04/28/2021 9:11 AM CDT [facility] Basophils Absolute 0.03 0 - 0.08 x10E9/L 04/28/2021 9:11 AM CDT [facility] RBC 4.96 3.80 - 5.20 x10E12/L 04/28/2021 9:11 AM CDT [facility] Hemoglobin 12.2 12.0 - 15.6 gm/dL 04/28/2021 9:11 AM CDT [facility] Hematocrit 39.2 35.9 - 45.5 % 04/28/2021 9:11 AM CDT [facility] MCV 79.0(L) 80.7 - 98.3 fl 04/28/2021 9:11 AM CDT [facility] MCH 24.6(L) 26.7 - 34.0 pg 04/28/2021 9:11 AM CDT [facility] MCHC 31.1 30.8 - 35.9 gm/dL 04/28/2021 9:11 AM CDT [facility] RDW-CV 25.8(H) 12.1 - 14.9 % 04/28/2021 9:11 AM CDT [facility] Platelet Count 369 153 - 416 x10E9/L 04/28/2021 9:11 AM CDT [facility] MPV 9.2(L) 9.4 - 12.9 fl 04/28/2021 9:11 AM CDT [facility] Blood BLOOD SPECIMEN / Unknown 04/28/2021 8:59 AM CDT 04/28/2021 8:59 AM CDT Rica López APRN-MELVIN LAB - HEMATOLOGY ORDERABLES [facility] [id number] [address] * LAB (04/11/2021) Only the most recent of2 resultswithin the time period is included. Scanned Document SCANNING ONLY * (ABNORMAL) RETIC COUNT (04/05/2021 1:48 PM MOLD SPRAYER) Pathologist [facility] Reticulocyte Count 1.19 0.5 - 1.7 % 04/05/2021 2:25 PM MOLD SPRAYER [facility] Reticulocyte Absolute 0.0572 0.0041 - 0.0971 x10E6/uL 04/05/2021 2:25 PM MOLD SPRAYER [facility] Reticulocyte Immature Fractionated 18.0(H) 0.9 - 14.3 % 04/05/2021 2:25 PM MOLD SPRAYER [facility] Hemoglobin Retic 29.8 27.8 - 36.8 pg 04/05/2021 2:25 PM MOLD SPRAYER [facility] Blood BLOOD SPECIMEN / Unknown Venipuncture / Unknown 04/05/2021 1:48 PM MOLD SPRAYER 04/05/2021 1:55 PM MOLD SPRAYER Cherie Aariza APRN-FILM CRITIC LAB - HEMATO LOGY ORDERABLES Performing Organization Address City/[facility]/ZIP Co de Phone Number [facility] [address] [place] [id number] * (ABNORMAL) VITAMIN B12 FOLATE PANEL (04/05/2021 1:48 PM MOLD SPRAYER) [facility] Vitamin B12 146(L) 213 - 816 pg/mL 04/05/2021 3:05 PM MOLD SPRAYER [facility] Folate 12.6 7.0 - 31.4 ng/mL 04/05/2021 3:05 PM MOLD SPRAYER [facility] Blood BLOOD SPECIMEN / Unknown Venipuncture / Unknown 04/05/2021 1:48 PM MOLD SPRAYER 04/05/2021 1:55 PM MOLD SPRAYER Cherie Araiza [employer]-FILM CRITIC LAB - CHEMIS TRY ORDERABLES Performing Organization Address [facility] Co de Phone Number [facility] [id number] [place] [address] * (ABNORMAL) IRON + TRANSFERRIN PANEL (04/05/2021 1:48 PM MOLD SPRAYER) Pathologist [facility] Iron 26(L) 50 - 170 ug/dL 04/05/2021 2:30 PM MOLD SPRAYER [facility] Transferrin 276 173 - 360 mg/dL 04/05/2021 2:30 PM MOLD SPRAYER [facility] TIBC Calculated 345 240 - 450 ug/dL 04/05/2021 2:30 PM MOLD SPRAYER [facility] Iron Saturation % 8(L) 20 - 50 % 04/05/2021 2:30 PM MOLD SPRAYER [facility] Blood BLOOD SPECIMEN / Unknown Venipuncture / Unknown 04/05/2021 1:48 PM MOLD SPRAYER 04/05/2021 1:55 PM MOLD SPRAYER Cherie Henry Jose G [employer]-FILM CRITIC LAB - CHEMIS TRY ORDERABLES Performing Organization Address [facility] Co de Phone Number [facility] [address] [place] [address] * FERRITIN (04/05/2021 1:48 PM MOLD SPRAYER) Ferritin 20 5 - 204 ng/mL 04/05/2021 3:05 PM MOLD SPRAYER [facility] Blood BLOOD SPECIMEN / Unknown Venipuncture / Unknown 04/05/2021 1:48 PM MOLD SPRAYER 04/05/2021 1:55 PM MOLD SPRAYER Cherie Elaine Araiza [employer]-FILM CRITIC LAB - CHEMIS TRY ORDERABLES Performing Organization Address [facility] de Phone Number [facility] [address] [place] [address] * MONITOR - HOLTER (03/10/2021) Impressions Kayley Willis MA - 03/10/2021 7-day Holter monitor Rhythm is normal sinus, ranging from 65-144 bpm, averaging 90 bpm. PAC burden is 0.14%. 38 runs of SVT, longest run 39 beats, most rapid rate 214. No PVCs. No atrial fibrillation, pauses, or heart block. One notation of exertional dyspnea did not correspond with SVT. Rodrigo Henley MD Rodrigo Henley MD CARDIAC SERVICES ORD ERABLES * ECHOCARDIOGRAM 2D WITH DOPPLER (02/07/2021 10:44 AM MOLD SPRAYER) 02/07/2021 10:4 4 AM MOLD SPRAYER Narrative Procedure Note Rodrigo Henley MD - 02/14/2021 . [facility] [place] [address] [place] [address] [place], [place] [id number] Echocardiography Examination Transthoracic Name: TAMIA ZHAO MPI#: MR#: [id number] Admission Number: [id number] Study Date: 02/07/2021 Study Time: 11:05 AM Date Of : 1950 Age: 70 years Height: 63 in. (160.0 cm) Weight: 180 lbs. (81.65 kg) BSA: 1.85 m2 Gender: Female Blood Pressure: 160 mmHg / 79 mmHg Heart Rate: 72 bpm Exam Details Procedure Ordered: ECHOCARDIOGRAM 2D W/DOPPLER Procedure Components: Complete 2D, M-mode, complete spectral Doppler, color Doppler, Definity Procedure Status: Routine study Image Quality: Technically Difficult Contrast: Intravenous contrast (Definity) was administered to opacify the left ventricle. Facility Location: [facility] Indication: Palpitations Procedure Art Editor: Liss Mccauley RDCS Ordering Provider: Rodrigo Henley MD Reading Physician: Rodrigo Henley MD Conclusions Left Ventricle: Left ventricle is normal in size. Normal global systolic left ventricular function. Left ventricle wall thickness is mildly increased. There are no regional wall motion abnormalities. Doppler parameters are consistent with abnormal left ventricular relaxation (Grade 1 diastolic dysfunction). Mitral Valve: There is mild mitral annular calcification. Follow up: Findings Patient: TAMIA ZHAO Study Date: 02/07/2021 11:05 AM Page 1 of 3 Left Ventricle: Left ventricle is normal in size. Normal global systolic left ventricular function. EF evaluated by biplane method of disks. Left ventricle wall thickness is mildly increased. There are no regional wall motion abnormalities. Doppler parameters are consistent with abnormal left ventricular relaxation (Grade 1 diastolic dysfunction). Right Ventricle: Normal size right ventricle. Right ventricular wall thickness is normal. Right ventricular systolic function is normal. Pulmonary artery pressure normal. Left Atrium: The left atrium is normal in size. Right Atrium: The right atrium is normal in size. Mitral Valve: Mitral leaflets exhibit normal cuspal separation. No mitral regurgitation. No mitral valve stenosis. There is mild mitral annular calcification. Aortic Valve: Aortic leaflets exhibit normal cuspal separation. No aortic valve regurgitation. There is no aortic stenosis. Tricuspid Valve: Tricuspid valve leaflets are normal. No tricuspid regurgitation. No tricuspid valve stenosis. Pulmonic Valve: Pulmonic leaflets exhibit normal cuspal separation. No pulmonic valve regurgitation is evident. There is no pulmonic valve stenosis. Aorta: The aorta is normal. No dilation of the ascending aorta. The aortic root exhibits normal size. Great Vessels: IVC: The inferior vena cava is normal in size and course. Pericardium: The pericardium is normal in appearance. No pericardial effusion. Clinical Data Comment: HTN,DORADO,Hypercholesteremia Measurements Anatomy Label Value Normal Value Aorta AoRoot, MM 2.4 cm (2.2cm - 3.7cm) Aortic Valve AV Vmean 1.06 m/s Aortic Valve AV VTI 29.37 cm Aortic Valve AV PGmax 8 mmHg Aortic Valve AV PGmean 5 mmHg Aortic Valve AV Vmax, Curve 1.44 m/s (1m/s - 1.7m/s) Aortic Valve LVOT VTI / AV VTI 0.72 Aortic Valve ALEJANDRO D (continuity eq. VTI) 1.8 cm Aortic Valve ALEJANDRO Index (continuity 1.08 cm /m eq.Vmax) Aortic Valve AV Opening, MM 1.3 cm Aortic Valve LVOT Vmax / AV Vmax 0.78 Interventricular septum IVSd, MM 0.8 cm (0.6cm - 0.9cm) Left Atrium LADs, MM 3.5 cm (2.7cm - 3.8cm) Left Atrium LA Area s, A4C 14.8 cm (0cm - 20cm ) Left Atrium LA Area s, A2C 18.4 cm (0cm - 20cm ) Left Atrium LAESV, MOD4 33 ml (22ml - 52ml) Patient: TAMIA ZHAO Study Date: 02/07/2021 11:05 AM Page 2 of 3 Left Atrium LAESV, MOD2 57 ml (22ml - 52ml) Left Atrium LA/AO Ratio, MM 1.47 Left Atrium LAESV index, MOD4 17.8 ml/m Left Atrium LAESV index, MOD2 30.8 ml/m Left Atrium LAESV index, AL4 19.5 ml/m Left Atrium LAESV index, AL2 31.9 ml/m Left Ventricle LVOT Vmax 1.12 m/s (0.7m/s - 1.1m/s) Left Ventricle LVOTd 1.8 cm (1.8cm - 2cm) Left Ventricle LVOT VTI 21.25 cm (18cm - 22cm) Left Ventricle LVOT PGmax 5 mmHg Left Ventricle LVDd, MM 4.4 cm (3.9cm - 5.3cm) Left Ventricle LVDs, MM 2.4 cm (2cm - 3.8cm) Left Ventricle LVPWd, MM 0.7 cm (0.6cm - 0.9cm) Left Ventricle FS, MM 45.45 % (27% - 45%) Left Ventricle LVEDV, BP 74 ml (56ml - 104ml) Left Ventricle LVESV, BP 28 ml (19ml - 49ml) Left Ventricle LVEDV Index, BP 40 ml/m (35ml/m - 75ml/m ) Left Ventricle LVESV Index, BP 15.1 ml/m (12ml/m - 30ml/m ) Left Ventricle LVOT PGmean 3 mmHg Left Ventricle LVOT Vmean 0.78 m/s Left Ventricle Diastolic MV E Vmax 0.79 m/s Function Left Ventricle Diastolic MV A Vmax 0.94 m/s Function Left Ventricle Diastolic MV E/A 0.84 Function Left Ventricle Diastolic MV DT 173 ms Function Mitral Valve MV Dec [place] 4.58 m/s Pulmonic Valve PV PGmax 4 mmHg Pulmonic Valve PV Vmax, [place] 1.02 m/s (0.6m/s - 0.9m/s) (No Signature Object) Patient: TAMIA ZHAO Study Date: 02/07/2021 11:05 AM Page 3 of 3 Rodrigo Henley MD ECHO ORDERABLES [facility] * HELICOBACTER PYLORI UREASE (STL) (02/02/2021 10:41 AM MOLD SPRAYER) Only the most recent of2 resultswithin the time period is included. Helicobacter pylori Urease Initial Negative Negative 02/03/2021 11:51 AM [facility] SPR[facility] Helicobacter pylori Urease Final Negative Negative 02/03/2021 11:51 AM MOLD SPRAYER [facility] Comment:This is an appended report. These results have been appended to a previously preliminary verified report. Microbiology GASTRIC ANTRAL BIOPSY SPECIMEN / Unknown Collection / Unknown 02/02/2021 10:41 AM MOLD SPRAYER 02/02/2021 3:50 PM MOLD SPRAYER Juan Suárez MD LAB - MICROBIOLOGY ORDERABLES [facility] [address] [id number] [address] * PATHOLOGY TISSUE EXAM (STL) (02/02/2021 10:32 AM MOLD SPRAYER) Only the most recent of2 resultswithin the time period is included. Case Report Surgical Pathology Report Case: [id number] Authorizing Provider: Juan Suárez MD Collected: 02/02/2021 10:32 AM Ordering Location: [facility] Received: 02/02/2021 12:19 PM Pathologist: Klaudia Oakes MD Specimen: Duodenal Biopsy 02/03/2021 3:14 PM [facility] Final Diagnosis Duodenum, biopsy: -- Small intestinal mucosa with no histopathologic abnormality 02/03/2021 3:14 PM [facility] Clinical History The patient is a 70-year-old woman with iron-deficiency anemia. 02/03/2021 3:14 PM [facility] Gross Description Received in formalin labeled with patient's name and duodenal biopsy are 3 fragments of guerrero soft tissue measuring 1 mm up to 3 mm. The specimen is submitted entirely cassette A1. 02/03/2021 3:14 PM [facility] Disclaimer All histochemical and/or immunohistochemical results are interpreted with controls that demonstrate appropriate staining reactions before reporting results. Note on use of immunocytochemistry reagents: This test was developed and its performance characteristic determined by [facility], Department of Laboratory Medicine. It has not been cleared or approved by the U.S. Food and Drug Administration (FDA). The FDA has determined that such clearance or approval is not necessary. The test is used for clinical purpose. It should not be regarded as investigational or for research. This laboratory is certified to perform high complexity testing. The performance characteristics of the IHC/JASON assays have been validated on formalin-fixed paraffin embedded tissues only. The assays have not been validated on decalcified tissues. Results should be interpreted with caution. 02/03/2021 3:14 PM MOLD SPRAYER [facility] Embedded Images 02/03/2021 3:14 PM MOLD SPRAYER [facility] Pathology/Cytolo gy DUODENAL BIOPSY SPECIMEN / Unknown 02/02/2021 10:32 AM MOLD SPRAYER 02/02/2021 12:19 PM MOLD SPRAYER Juan Suárez MD LAB - PATHOLOGY/CYT OLOGY ORDERABLES [facility] [address] [place] [id number] * EGD (02/02/2021 9:41 AM MOLD SPRAYER) Report Endoscopy POC _ Patient Name: Tamia Zhao Procedure Date: 02/02/2021 9:41 AM Date of : 1950 Admit Type: Outpatient Age: 70 Gender: Female Attending MD: Juan Suárez MD _ Procedure: Upper GI endoscopy Indications: Iron deficiency anemia, Personal history of peptic ulcer disease Providers: Juan Suárez MD (Doctor) Referring MD: Vincent Ba MD (Referring MD) Medicines: Monitored Anesthesia Care Complications: No immediate complications. _ Estimated Blood Loss: Estimated blood loss: none. Procedure: Pre-Anesthesia Assessment: - Prior to the procedure, a History and Physical was performed, and patient medications and allergies were reviewed. The patient is competent. The risks and benefits of the procedure and the sedation options and risks were discussed with the patient. All questions were answered and informed consent was obtained. Patient identification and proposed procedure were verified by the physician, the nurse and the milling machinist in the procedure room. Mental Status Examination: alert and oriented. Airway Examination: normal oropharyngeal airway and neck mobility. Respiratory Examination: clear to auscultation. CV Examination: normal. Prophylactic Antibiotics: The patient does not require prophylactic antibiotics. Prior Anticoagulants: The patient has taken no previous anticoagulant or antiplatelet agents except for aspirin. ASA Grade Assessment: III - A patient with severe systemic disease. After reviewing the risks and benefits, the patient was deemed in satisfactory condition to undergo the procedure. The anesthesia plan was to use monitored anesthesia care (MAC). Immediately prior to administration of medications, the patient was re-assessed for adequacy to receive sedatives. The heart rate, respiratory rate, oxygen saturations, blood pressure, adequacy of pulmonary ventilation, and response to care were monitored throughout the procedure. The physical status of the patient was re-assessed after the procedure. - Prior Aspirin/ NSAID therapy: The patient has taken aspirin, last dose was 5 days prior to procedure. After obtaining informed consent, the endoscope was passed under direct vision. Throughout the procedure, the patient's blood pressure, pulse, and oxygen saturations were monitored continuously. The Endoscope was introduced through the mouth, and advanced to the second part of duodenum. The upper GI endoscopy was accomplished without difficulty. The patient tolerated the procedure well. Findings: The examined esophagus was normal. One non-bleeding cratered gastric ulcer was found in the gastric antrum. The lesion was 10 mm in largest dimension. Biopsies were taken with a cold forceps for Helicobacter pylori testing using CLOtest. The cardia, gastric fundus and gastric body were normal. The duodenal bulb and second portion of the duodenum were normal. Biopsies were taken with a cold forceps for histology. _ Impression: - Normal esophagus. - Non-bleeding gastric ulcer. Biopsied. - Normal cardia, gastric fundus and gastric body. - Normal duodenal bulb and second portion of the duodenum. Biopsied. Recommendation: - Await pathology results. - Use Protonix (pantoprazole) 40 mg PO daily for 12 weeks. - Avoid NSAIDs (ibuprofen, celebrex, alleve...) - Return to my office in 12 weeks. - Resume previous diet. - Post procedure medication orders were given. - Patient has a contact number available for emergencies. The signs and symptoms of potential delayed complications were discussed with the patient. Return to normal activities tomorrow. Written discharge instructions were provided to the patient. Procedure Code(s): --- Professional --- 86616, Esophagogastroduod enoscopy, flexible, transoral; with biopsy, single or multiple --- Technical --- 23701, Esophagogastroduod enoscopy, flexible, transoral; with biopsy, single or multiple Diagnosis Code(s): --- Professional --- K25.9, Gastric ulcer, unspecified as acute or chronic, without hemorrhage or perforation D50.9, Iron deficiency anemia, unspecified Z87.11, Personal history of peptic ulcer disease --- Technical --- K25.9, Gastric ulcer, unspecified as acute or chronic, without hemorrhage or perforation D50.9, Iron deficiency anemia, unspecified Z87.11, Personal history of peptic ulcer disease CPT copyright 2019 [employer]. All rights reserved. The codes documented in this report are preliminary and upon corporate strategist review may be revised to meet current compliance requirements. Dr. Juan Suárez MD Juan Suárez MD 02/02/2021 10:48:36 AM This report has been signed electronically. Number of Addenda: 0 Note Initiated On: 02/02/2021 9:41 AM [facility] 02/02/2021 9:41 AM MOLD SPRAYER Juan Suárez MD GI PROCEDURE ORDERA BLES [facility] [place] [address] * MAMMO BILAT SCREENING (09/06/2020 1:56 PM CDT) Only the most recent of11 resultswithin the time period is included. Anatomical Region Laterality Modality Breast Bilateral Mammography 09/07/2020 1:22 PM CDT Impressions 09/07/2020 1:23 PM CDT No mammographic evidence of malignancy in either breast. ASSESSMENT: BIRADS Category 1: Negative mammogram. RECOMMENDATION: Bilateral screening mammogram in one year. Thank you for allowing us to participate in the care of your patient. [facility] utilizes [employer] as a reminder system to notify patients of their next recommended mammogram. *Reading Radiologist: Fely Puente on 09/07/2020 at 1:23 PM Narrative 09/07/2020 1:23 PM CDT EXAMINATION: Digital screening mammogram. Low-dose full-field digital breast tomosynthesis examination was performed with synthetic 2D images and 3D acquisitions. Computer assisted detection was utilized. DATE: 09/06/2020 1:28 PM PRIOR: Several priors, most recently 2019 BREAST PARENCHYMAL DENSITY: There are scattered areas of fibroglandular density. FINDINGS: No suspicious masses, areas of architectural distortion or microcalcifications are evident on synthetic 2D mammogram or tomosynthesis images. There has been no significant interval change since the prior examination. Carlos Desouza MD MAMMO ORDERABLES * XR LUMBAR SPINE 4VW OR MORE (10/01/2019 9:38 AM CDT) Anatomical Region Laterality Modality Spine Computed Radiogr aphy Narrative 10/01/2019 9:39 AM CDT Vianca Banegas 10/01/2019 3:43 PM Please see progress notes for result. Elías Cid MD DIAGNOSTIC IMAGING O RDERABLES * US BREAST LEFT LTD (08/09/2018 2:04 PM CDT) Anatomical Region Laterality Modality Breast Left Ultrasound 08/09/2018 2:05 PM CDT Narrative 08/09/2018 2:45 PM CDT ULTRASOUND LEFT BREAST LIMITED INDICATION: Abnormal mammogram. Directed grayscale ultrasound performed and reveals bands of dense fibrous tissue. The area does appear similar to a prior ultrasound of 2011. The area is difficult to press out mammographically. No solid or cystic mass is seen. No worrisome finding is noted. ASSESSMENT: BI-RADS 2: BENIGN FINDING. RECOMMENDATION: Screening interval follow-up. Edited by Rosa Estrella on 08/09/2018 2:09 PM Reading Radiologist: Priscila Lau MD on 08/09/2018 at 2:45 PM Carlos Desouza MD US ORDERABLES * MAMMO DIAG DIRECT DIGITAL IMAGE UNIL LEFT [id number] (08/09/2018 1:38 PM CDT) Anatomical Region Laterality Modality Breast Left Mammography 08/09/2018 2:46 PM CDT Narrative 08/09/2018 3:34 PM CDT DIGITAL UNILATERAL DIAGNOSTIC MAMMOGRAMS WITH CAD AND 3-D TOMOSYNTHESIS DATE: 08/09/2018 at 12:52 PM. PREVIOUS EXAM DATE: 08/05/2018, 08/03/2017 and prior. INDICATION: Abnormal mammogram. TECHNIQUE: Unilateral left spot compressed CC, MLO, ML tomosynthesis views. Images were interpreted with the aid of CAD. 3-D tomosynthesis images were performed. TECHNOLOGIST: RT Keke(R)(M). TISSUE DENSITY: Scattered fibroglandular elements. FINDINGS: The area of asymmetry in the left breast does not persist on spot compressed views. Because of the dense tissue in this area, directed ultrasound performed and revealed discrete abnormality. These benign findings were shared in person with the patient by myself. ASSESSMENT: BI-RADS 2: BENIGN FINDING. RECOMMENDATIONS: Continued annual screening mammography. The above findings should be correlated with physical examination. A relatively nonspecific study should not preclude additional evaluation if suspicious findings are present clinically. An [employer]. [facility] utilizes [employer] as a reminder system to notify patients of their next recommended mammograms. Edited by Rosa Estrella on 08/09/2018 2:51 PM Reading Radiologist: Priscila Lau MD on 08/09/2018 at 3:34 PM Carlos Desouza MD MAMMO ORDERABLES * EGD (05/18/2016 11:08 AM CDT) Report Endoscopy POC __ _ Patient Name: Tamia Zhao Procedure Date: 05/18/2016 11:08 AM Date of : 1950 Admit Type: Outpatient Age: 65 Gender: Female Attending MD: Juan Suárez MD __ _ Procedure: Upper GI endoscopy Indications: Iron deficiency anemia Providers: Juan Suárez MD (Doctor) Referring MD: Vincent Ba MD (Referring MD), Rodrigo Henley MD (Referring MD) Medicines: Monitored Anesthesia Care Complications: No immediate complications. Estimated blood loss: None. __ _ Procedure: Pre-Anesthesia Assessment: - Prior to the procedure, a History and Physical was performed, and patient medications and allergies were reviewed. The patient is competent. The risks and benefits of the procedure and the sedation options and risks were discussed with the patient. All questions were answered and informed consent was obtained. Patient identification and proposed procedure were verified by the physician, the nurse and the milling machinist in the procedure room. Mental Status Examination: alert and oriented. Airway Examination: normal oropharyngeal airway and neck mobility. Respiratory Examination: clear to auscultation. CV Examination: normal. Prophylactic Antibiotics: The patient does not require prophylactic antibiotics. Prior Anticoagulants: The patient has taken no previous anticoagulant or antiplatelet agents. ASA Grade Assessment: II - A patient with mild systemic disease. After reviewing the risks and benefits, the patient was deemed in satisfactory condition to undergo the procedure. The anesthesia plan was to use monitored anesthesia care (MAC). Immediately prior to administration of medications, the patient was re-assessed for adequacy to receive sedatives. The heart rate, respiratory rate, oxygen saturations, blood pressure, adequacy of pulmonary ventilation, and response to care were monitored throughout the procedure. The physical status of the patient was re-assessed after the procedure. After obtaining informed consent, the endoscope was passed under direct vision. Throughout the procedure, the patient's blood pressure, pulse, and oxygen saturations were monitored continuously. The Endoscope was introduced through the mouth, and advanced to the second part of duodenum. The upper GI endoscopy was accomplished without difficulty. The patient tolerated the procedure well. Findings: The gastroesophageal junction and examined esophagus were normal. Four non-bleeding superficial gastric ulcers with no stigmata of bleeding were found in the prepyloric region of the stomach. The largest lesion was 4 mm in largest dimension. Biopsies were taken with a cold forceps for Helicobacter pylori testing using CLOtest. The cardia, gastric fundus and gastric body were normal. The duodenal bulb and 2nd part of the duodenum were normal. Biopsies were taken with a cold forceps for histology. __ _ Impression: - Normal gastroesophageal junction and esophagus. - 4 small non-bleeding gastric ulcers with no stigmata of bleeding. Biopsied. - Normal cardia, gastric fundus and gastric body. - Normal duodenal bulb and 2nd part of the duodenum. Biopsied. Recommendation: - Perform a colonoscopy today. - The ulcers are small and low risk for bleeding. Will start Protonix 40mg PO each day; Avoid NSAIDs. Procedure Code(s): --- Professional --- 35717, Esophagogastroduode noscopy, flexible, transoral; with biopsy, single or multiple --- Technical --- 45206, Esophagogastroduode noscopy, flexible, transoral; with biopsy, single or multiple Diagnosis Code(s): --- Professional --- K25.9, Gastric ulcer, unspecified as acute or chronic, without hemorrhage or perforation D50.9, Iron deficiency anemia, unspecified --- Technical --- K25.9, Gastric ulcer, unspecified as acute or chronic, without hemorrhage or perforation D50.9, Iron deficiency anemia, unspecified CPT copyright 2015 [employer]. All rights reserved. The codes documented in this report are preliminary and upon corporate strategist review may be revised to meet current compliance requirements. Dr. Juan Suárez MD ____ Juan Suárez MD 05/18/2016 11:24:10 AM This report has been signed electronically. Number of Addenda: 0 Note Initiated On: 05/18/2016 11:08 AM [facility] 05/18/2016 11:0 8 AM CDT Juan Suárez MD GI PROCEDURE ORDERA BLES [facility] [place] [address] * ENDOSCOPY, COLON, SCREENING (05/18/2016 11:07 AM CDT) Report Endoscopy POC _ Patient Name: Tamia Zhao Procedure Date: 05/18/2016 11:07 AM Date of : 1950 Admit Type: Outpatient Age: 65 Gender: Female Attending MD: Juan Suárez MD _ Procedure: Colonoscopy Indications: Last colonoscopy: 2008, Iron deficiency anemia Providers: Juan Suárez MD (Doctor) Referring MD: Vincent Ba MD (Referring MD), Rodrigo Henley MD (Referring MD) Medicines: Monitored Anesthesia Care Complications: No immediate complications. Estimated blood loss: None. _ Procedure: Pre-Anesthesia Assessment: - Prior to the procedure, a History and Physical was performed, and patient medications and allergies were reviewed. The patient is competent. The risks and benefits of the procedure and the sedation options and risks were discussed with the patient. All questions were answered and informed consent was obtained. Patient identification and proposed procedure were verified by the physician, the nurse and the milling machinist in the procedure room. Mental Status Examination: alert and oriented. Airway Examination: normal oropharyngeal airway and neck mobility. Respiratory Examination: clear to auscultation. CV Examination: normal. Prophylactic Antibiotics: The patient does not require prophylactic antibiotics. Prior Anticoagulants: The patient has taken no previous anticoagulant or antiplatelet agents. ASA Grade Assessment: II - A patient with mild systemic disease. After reviewing the risks and benefits, the patient was deemed in satisfactory condition to undergo the procedure. The anesthesia plan was to use monitored anesthesia care (MAC). Immediately prior to administration of medications, the patient was re-assessed for adequacy to receive sedatives. The heart rate, respiratory rate, oxygen saturations, blood pressure, adequacy of pulmonary ventilation, and response to care were monitored throughout the procedure. The physical status of the patient was re-assessed after the procedure. After I obtained informed consent, the scope was passed under direct vision. Throughout the procedure, the patient's blood pressure, pulse, and oxygen saturations were monitored continuously. The Colonoscope was introduced through the anus and advanced to the cecum, identified by appendiceal orifice and ileocecal valve. The colonoscopy was performed without difficulty. The patient tolerated the procedure well. The quality of the bowel preparation was excellent. Findings: The digital rectal exam was normal. Pertinent negatives include no palpable rectal lesions. The rectum, sigmoid colon, descending colon, transverse colon, ascending colon, cecum, appendiceal orifice and ileocecal valve appeared normal. Internal hemorrhoids noted in retroflexion. _ Impression: - The rectum, sigmoid colon, descending colon, transverse colon, ascending colon, cecum, appendiceal orifice and ileocecal valve are normal. - Internal hemorrhoids noted in retroflexion - No specimens collected. Recommendation: - Repeat colonoscopy in 10 years for surveillance. - Return to primary care physician as previously scheduled. - OK to proceed with cardiac catheterization from a GI perspective. - Start FeSO4 325mg PO BID; repeat CBC in 4-6 weeks Procedure Code(s): --- Professional --- 73202, Colonoscopy, flexible; diagnostic, including collection of specimen(s) by brushing or washing, when performed (separate procedure) --- Technical --- 40697, Colonoscopy, flexible; diagnostic, including collection of specimen(s) by brushing or washing, when performed (separate procedure) Diagnosis Code(s): --- Professional --- D50.9, Iron deficiency anemia, unspecified --- Technical --- D50.9, Iron deficiency anemia, unspecified CPT copyright 2015 [employer]. All rights reserved. The codes documented in this report are preliminary and upon corporate strategist review may be revised to meet current compliance requirements. Dr. Juan Suárez MD Juan Suárez MD 05/18/2016 11:44:15 AM This report has been signed electronically. Number of Addenda: 0 Note Initiated On: 05/18/2016 11:07 AM [facility] 05/18/2016 11:0 7 AM CDT Juan Suárez MD GI PROCEDURE ORDERA BLES Performing Organization Address [facility] de Phone Number [facility] [place] [address] * CARDIAC PROCEDURE ORDER (05/11/2016 9:20 PM CDT) Narrative 05/11/2016 9:20 PM CDT Ordered by an unspecified provider. Scanned Document CARDIAC SERVICES ORD ERABLES * PT-INR (05/10/2016 12:48 PM CDT) PT 10.1 9.5 - 11.6 sec 05/10/2016 1:14 PM CDT [facility] INR 1.0 0.9 - 1.1 05/10/2016 1:14 PM CDT [facility] Blood BLOOD SPECIMEN / Unknown Lab Venipuncture / Unknown 05/10/2016 12:48 PM CDT 05/10/2016 1:02 PM CDT Narrative [facility] - 05/10/2016 1:14 PM CDT Conventional Warfarin Anticoagulant Therapy: INR Reference Range: 2.0-3.0 Intensive Warfarin Anticoagulant Therapy: INR Reference Range: 2.5-3.5 Rodrigo Henley MD LAB - COAGULATION OR DERABLES Performing Organization Address [facility] Co de Phone Number [facility] [address] [place] [address] * CARDIAC CATH PROCEDURE (05/10/2016 12:00 PM CDT) 05/10/2016 12:0 0 PM CDT Narrative Procedure Note Rodrigo Henley MD - 05/10/2016 6:45 PM CDT [facility] CARDIAC CATHETERIZATION PATIENT: TAMIA ZHAO MR#: [id number] ADMIT DATE: 05/10/2016 CSN: [id number] PROCEDURE DATE: 05/10/2016 :1950 PHYSICIAN: Rodrigo Henley MD ROOM: [facility] REFERRING PHYSICIAN: Rodrigo Henley MD PROCEDURES: 1. Left heart catheterization. 2. Left ventriculography. 3. Selective coronary arteriography. CLINICAL SUMMARY: This is a 65-year-old white female with exertionaldyspnea. Today, she had a treadmill echocardiogram stress test with 3 mm diffuseST- segment depression with exercise. No chest pain or definite wall motion abnormality. Coronary angiography was recommended. PROCEDURE: Urvashi. SITE OF ENTRY: Right femoral artery. LOCAL ANESTHESIA: Xylocaine 1%. PREMEDICATIONS: Versed 3 mg IV, fentanyl 50 mcg IV. CATHETERS: Five-Comoran arterial sheath, 5-Comoran pigtail, 5-Comoran JL4,5- [place]an JR4. DESCRIPTION OF PROCEDURE: The patient was brought to thecatheterization laboratory and prepped and draped in the usual sterile fashion. Theright groin was anesthetized locally and the arterial sheath was insertedwithout difficulty. Selective coronary arteriography was performed in multiple LAOand BAÑUELOS projections using cranial and caudal angulation. Left ventriculogram was performed in the 30-degree BAÑUELOS projection using 35cc of nonionic contrast at 14 cc/second. Femoral arteriogram showed goodsheath position in the common femoral artery. The sheath was removed and a6-Comoran Angio-Seal device deployed with good hemostasis. No femoral hematoma.Pedal pulses were intact. The patient was returned to the holding area instable condition. COMPLICATIONS: None. HEMODYNAMICS: Preangiography pressures: Aorta 162/77, left [id number]. LEFT VENTRICULOGRAM: Left ventricular systolic and diastolic volumesare normal. Left ventricular contractility is normal without hypokinesisfocally. No mitral insufficiency. CORONARY ARTERIOGRAPHY: This is a right dominant coronary circulation. Left main coronary artery: Normal. Left anterior descending artery: 40% to 50% proximal LAD stenosis, 80%first diagonal stenosis. Circumflex artery: Mild irregularity. Right coronary artery: Mild irregularity. Conscious sedation: 19 minutes of conscious sedation was used in thepresence of trained independent personnel. FINDINGS: 1. Normal left ventricular systolic function. 2. 80% stenosis of the first diagonal artery. RECOMMENDATIONS: 1. Continue low-dose aspirin. 2. Add low-dose atorvastatin (has history of GI intolerance withstatins) and Zetia 10 mg daily. 3. I encouraged the patient to see press helper soon for evaluationof severe anemia. 4. She may need coronary intervention to the first diagonal branch inthe future, but this will be deferred until after her anemia evaluation. RODRIGO HENLEY MD SIB/MODL #: [id number] cc: Vincent Ba [place], [place] MEDICAL/SURGICAL CARDIAC CATHETERIZATION - DP Rodrigo Henley MD CARDIAC SERVICES ORD ERABLES [facility] * ECHOCARDIOGRAM STRESS (05/10/2016 10:35 AM CDT) 05/10/2016 10:3 5 AM CDT Narrative [facility] CARDIAC SERVICES - 05/10/2016 6:04 PM CDT [address] [address] Exercise Stress Echocardiography Name: TAMIA ZHAO MR #: [id number] Study date: 10-May-2016 : 1950 Age: 65 years Gender: Female Height: 63 in Weight: 178 lb BSA: 1.84 m Diagnosis: 746.85 - CORONARY ARTERY ANOMALY Reading Physician: Pedro Kahn MD Referring Physician: Rodrigo Henley MD FELT HANGER: Kadi Gallo. RDCS Cardiology Group: [facility] CLINICAL QUESTION: Detection of coronary artery disease. HISTORY: The patient is a 65 year old female. Chest pain status: no chest pain. Coronary artery disease risk factors: dyslipidemia and hypertension. Cardiovascular history: coronary artery disease. Medications: a diuretic and a lipid lowering agent. REST ECG: Normal sinus rhythm. PROCEDURE: Treadmill exercise testing was performed, using the Rubén protocol. Stress and rest echocardiographic evaluation was performed from multiple acoustic windows for evaluation of ventricular function. #op 10:30 am CARD CATH 2008 NEG Systolic blood pressure was 177 mmHg, at the start of the study. Diastolic blood pressure was 78 mmHg, at the start of the study. The heart rate was 89 bpm, at the start of the study. RUBÉN PROTOCOL: HR bpm SBP mmHg DBP mmHg Symptoms Rhythm/conduct Baseline 89 177 78 none NSR, no ectopy Stage 1 142 190 92 dyspnea sinus tach Immediate 154 169 71 dyspnea, fatigue sinus tach Recovery 1 137 167 89 same as above sinus tach Recovery 2 112 147 72 subsiding sinus tach Recovery 3 109 145 75 none sinus tach Recovery 5 100 137 65 none NSR, no ectopy No medications or fluids given. STRESS SUMMARY: Duration of exercise was 4 min and 30 sec. The patient exercised to protocol stage 2. Maximal work rate was 7 METs. Maximal heart rate during stress was 154 bpm ( 100 % of maximal predicted heart rate). Target heart rate was achieved. Maximal systolic blood pressure during stress was 190 mmHg. The rate-pressure product for the peak heart rate and blood pressure was 01270. There was no chest pain during stress. The stress test was terminated due to achievement of target heart rate, dyspnea, and fatigue. The stress ECG was consistent with myocardial ischemia. There were no stress arrhythmias or conduction abnormalities. Maximal ST change occurred during the exercise phase. STRESS 2D ECHOCARDIOGRAPHIC RESULTS: PEAK STRESS: There was hypokinesis of the mid anterolateral wall(s). ECHO IMPRESSIONS: stress-induced ischemia of the anterolateral wall. SUMMARY: - Stress results: Duration of exercise was 4 min and 30 sec. Maximal work rate was 7 METs. Target heart rate was achieved. There was no chest pain during stress. - ECG conclusions: The stress ECG was consistent with myocardial ischemia. - Peak stress: There was hypokinesis of the mid anterolateral wall(s). - Echo image interpretation: stress-induced ischemia of the anterolateral wall. IMPRESSIONS: Abnormal study after maximal exercise. Prepared and signed by ePdro Kahn MD Signed 10-May-2016 18:03:53 Procedure Note Pedro Kahn MD - 05/10/[address] [address] Exercise Stress Echocardiography Name: TAMIA ZHAO MR #: [id number] Study date: 10-May-2016 : 1950 Age: 65 years Gender: Female Height: 63 in Weight: 178 lb BSA: 1.84 m Diagnosis: 746.85 - CORONARY ARTERY ANOMALY Reading Physician: Pedro Kahn MD Referring Physician: Rodrigo Henley MD FELT HANGER: Kadi Gallo. [facility] Cardiology Group: [facility] CLINICAL QUESTION: Detection of coronary artery disease. HISTORY: The patient is a 65 year old female. Chest pain status: no chest pain. Coronary artery disease risk factors: dyslipidemia and hypertension. Cardiovascular history: coronary artery disease. Medications: a diuretic and a lipid lowering agent. REST ECG: Normal sinus rhythm. PROCEDURE: Treadmill exercise testing was performed, using the Rubén protocol. Stress and rest echocardiographic evaluation was performed from multiple acoustic windows for evaluation of ventricular function. #op 10:30 am CARD CATH 2008 NEG Systolic blood pressure was 177 mmHg, at the start of the study. Diastolic blood pressure was 78 mmHg, at the start of the study. The heart rate was 89 bpm, at the start of the study. RUBÉN PROTOCOL: HR bpm SBP mmHg DBP mmHg Symptoms Rhythm/conduct Baseline 89 177 78 none NSR, no ectopy Stage 1 142 190 92 dyspnea sinus tach Immediate 154 169 71 dyspnea, fatigue sinus tach Recovery 1 137 167 89 same as above sinus tach Recovery 2 112 147 72 subsiding sinus tach Recovery 3 109 145 75 none sinus tach Recovery 5 100 137 65 none NSR, no ectopy No medications or fluids given. STRESS SUMMARY: Duration of exercise was 4 min and 30 sec. The patient exercised to protocol stage 2. Maximal work rate was 7 METs. Maximal heart rate during stress was 154 bpm ( 100 % of maximal predicted heart rate). Target heart rate was achieved. Maximal systolic blood pressure during stress was 190 mmHg. The rate-pressure product for the peak heart rate and blood pressure was [address]. There was no chest pain during stress. The stress test was terminated due to achievement of target heart rate, dyspnea, and fatigue. The stress ECG was consistent with myocardial ischemia. There were no stress arrhythmias or conduction abnormalities. Maximal ST change occurred during the exercise phase. STRESS 2D ECHOCARDIOGRAPHIC RESULTS: PEAK STRESS: There was hypokinesis of the mid anterolateral wall(s). ECHO IMPRESSIONS: stress-induced ischemia of the anterolateral wall. SUMMARY: - Stress results: Duration of exercise was 4 min and 30 sec. Maximal work rate was 7 METs. Target heart rate was achieved. There was no chest pain during stress. - ECG conclusions: The stress ECG was consistent with myocardial ischemia. - Peak stress: There was hypokinesis of the mid anterolateral wall(s). - Echo image interpretation: stress-induced ischemia of the anterolateral wall. IMPRESSIONS: Abnormal study after maximal exercise. Prepared and signed by Pedro Kahn MD Signed 10-May-2016 18:03:53 Rodrigo Henley MD ECHO ORDERABLES Performing Organization Address City/[facility] Co de Phone Number DP CARDIAC SERVICES * TSH (04/21/2016 12:19 PM MOLD SPRAYER) TSH 1.73 0.358 - 3.740 uIU/mL [facility] INSURANCE BILL Blood BLOOD SPECIMEN / Unknown 04/21/2016 12:19 PM MOLD SPRAYER 04/21/2016 Narrative Resulting Agency Comment [facility] [address] [address] [place] [phone] Rodrigo Henley MD LAB - CHEMISTRY ORDCornelia COUCH Performing Organization Address City/[facility] Co de Phone Number [facility] INSURANCE BILL [address] [place] [address] * T4 FREE (04/21/2016 12:19 PM MOLD SPRAYER) T4 Free 0.96 0.65 - 1.34 ng/dL [facility] INSURANCE BILL Blood BLOOD SPECIMEN / Unknown 04/21/2016 12:19 PM MOLD SPRAYER 04/21/2016 Narrative Resulting Agency Comment [facility] [address] [place] [phone] Rodrigo Henley MD LAB - CHEMISTRY LIBRADO COUCH Performing Organization Address City/[facility]/ZIP Co de Phone Number [facility] INSURANCE BILL [address] [place] [address] * (ABNORMAL) LIPID PROFILE (04/21/2016 12:19 PM MOLD SPRAYER) Cholesterol 214(H) <200 mg/dL [facility] INSURANCE BILL Triglycerides 60 <150 mg/dL [facility] INSURANCE BILL HDL Cholesterol 97 >40 mg/dL [facility] INSURANCE BILL VLDL Calculated 12 <=30 mg/dL [facility] INSURANCE BILL LDL Calculated 105 <130 mg/dL [facility] INSURANCE BILL Blood BLOOD SPECIMEN / Unknown 04/21/2016 12:19 PM MOLD SPRAYER 04/21/2016 Narrative Resulting Agency Comment [address] [place] [id number] Rodrigo Henley MD LAB - CHEMISTRY LIBRADO COUCH Performing Organization Address [facility]/ZIP Co de Phone Number [facility] INSURANCE BILL [address] [place] [address] * CARDIAC EKG ORDER (04/21/2016) Rodrigo Henley MD CARDIAC SERVICES ORD ERABLES * PAP IG RFLX HPV ASCU (PO REF LAB) (03/02/2016 3:01 PM MOLD SPRAYER) Diagnosis [facility] INSURANCE BILL Comment: NEGATIVE FOR INTRAEPITHELIAL LESION AND MALIGNANCY. THIS SPECIMEN WAS RESCREENED PART OF OUR BOILER/CHILLER OPERATOR PROGRAM. Specimen Adequacy [facility] INSURANCE BILL Comment: Satisfactory for evaluation. No endocervical cells are present. This is consistent with a history of hysterectomy. Clinician Provided ICD10 [facility] INSURANCE BILL Comment: Z12.72 N95.1 Performed by [facility] INSURANCE BILL Comment:Jarrod Bonilla totechnologist QC Reviewed by [facility] INSURANCE BILL Comment:Bell Crabtree ytotechnologist (ASCP) Comment . [facility] INSURANCE BILL Note [facility] INSURANCE BILL Comment: The Pap smear is a screening test designed to aid in the detection of premalignant and malignant conditions of the uterine cervix. It is not a diagnostic procedure and should not be used as the sole means of detecting cervical cancer. Both false-positive and false-negative reports do occur. . IGLBP CPT Code Automation [facility] INSURANCE BILL Comment: This liquid based ThinPrep(R) pap test was screened with the use of an image guided system. Note [facility] INSURANCE BILL Comment: The HPV DNA reflex criteria were not met with this specimen result therefore, no HPV testing was performed. . MICROSCOPIC CYTOLOGIC EXAMINATION OF SMEAR OF SPECIMEN FROM FEMALE GENITAL TRACT PREPARED USING PAPANICOLAOU TECHNIQUE / Unknown 03/02/2016 3:01 PM MOLD SPRAYER 03/06/2016 Narrative [facility] INSURANCE BILL - 03/09/2016 1:11 PM MOLD SPRAYER Source.............Vagina LMP / Prev Treat...Hyst No. of containers..01 CYTYC Thin Prep Vial Resulting Agency Comment [address] [phone] Carlos Desouza MD LAB - PATHOLOGY/CYT OLOGY ORDERABLES Performing Organization Address City/State/[facility] Co de Phone Number [facility] INSURANCE BILL [address] [place] [address] * PAIN MANAGEMENT PROCEDURE TIME (04/20/2015 1:27 PM MOLD SPRAYER) Only the most recent of5 resultswithin the time period is included. Anatomical Region Laterality Modality X-Ray Angiograph y Narrative 04/20/2015 1:29 PM MOLD SPRAYER Elías Cid MD 04/20/2015 1:29 PM Right L3 and L4 Transforaminal Selective Nerve Root Injection Tamia F Quang [id number] 04/20/2015 No Known Allergies Procedure: Transforaminal Selective Nerve Root Steroid Injection Under Fluoroscopy Indication for Procedure: Radicular pain in the lower extremity/Lumbar stenosis/Lumber HNP. M54.16 Informed Consent: After the patient, Tamia Zhao, was informed of the risks and benefits of the procedure and all questions were answered, the consent was signed. Prep:Patient identified, proper procedure and site verified, marked by Dr. Toussaint. In the prone position, right L3 and L4 pedicles, and transverse process were identified under fluoroscopy and marked on the patient's skin. The skin was prepped in a routine sterile fashion using chloroprep. Responsible haul driver not needed as the patient is not having sedation. Under fluoroscopy, a 25 gauge, 3 1/2 inch spinal needle was slowly inserted towards the right L3 foramen after 1 % lidocaine MPF was used to anesthetize the skin , subcutaneous tissue and the muscle overlying the area.Once the tip of the needle was in proper position, 0.5ml of Omnipaque was slowly injected to outline the selective nerve root pattern. Symptoms were reproduced in the nerve root distribution. 0.5 ml of Dexamethasone 10 mg per ml and 3.0 ml of normal saline (preservative free) were injected in a slow, incremental fashion after aspiration revealed no blood or CSF return. The needle was removed, the skin was cleaned, and ensured no bleeding was noted. The procedure was repeated at the right L4 nerve root level. Total Lidocaine : 4ml Total Dexamethasone :10mg Total Omnipaque : 1ml The patient tolerated the procedure well without complications. The patient was taken to the recovery area and remained stable without complications. Vital signs stable. Injection site clean, dry, and intact. Post procedure instructions were given to the patient and follow up appointment was confirmed. The patient was discharged with information on how to reach the clinic at any time for questions or concerns. Patient ambulatory, denies complaints, DC to home. Patient survey given. Procedure codes: 20343/77984 Elías Cid MD Elías Cid MD DIAGNOSTIC IMAGING O RDERABLES * NM BONE SCAN MULTIPLE AREAS (04/16/2015 1:29 PM MOLD SPRAYER) Anatomical Region Laterality Modality Nuclear Medicine 04/16/2015 1:35 PM MOLD SPRAYER Impressions 04/16/2015 1:45 PM MOLD SPRAYER Increased tracer uptake at L3 on the right, and L4 on the left, corresponding to what I believe are hypertrophic facet changes. Narrative 04/16/2015 1:45 PM MOLD SPRAYER BONE SCINTIGRAPHY - lumbar spine, pelvis and both thighs and legs INDICATION: Lower back pain, pain in her right lower extremity. RADIOPHARMACEUTICAL: 28 mCi Tc99m HDP, intravenously. FINDINGS: There is is made to the images of the 04/14/2015 lumbar myelogram. The planar scintigraphic images show increased uptake, posteriorly, at L3 on the right and L4 on the left, corresponding to what I believe is hypertrophic facet arthropathy changes. Tracer distribution in the pelvis is otherwise unremarkable. Symmetric joint centered activity in both patellae and proximal tibia are consistent with changes of osteoarthritis. I do not see any suspicious sites of increased or decreased tracer uptake. Procedure Note Luis F Mcguire MD - 04/16/2015 BONE SCINTIGRAPHY - lumbar spine, pelvis and both thighs and legs INDICATION: Lower back pain, pain in her right lower extremity. RADIOPHARMACEUTICAL: 28 mCi Tc99m HDP, intravenously. FINDINGS: There is is made to the images of the 04/14/2015 lumbar myelogram. The planar scintigraphic images show increased uptake, posteriorly, at L3 on the right and L4 on the left, corresponding to what I believe is hypertrophic facet arthropathy changes. Tracer distribution in the pelvis is otherwise unremarkable. Symmetric joint centered activity in both patellae and proximal tibia are consistent with changes of osteoarthritis. I do not see any suspicious sites of increased or decreased tracer uptake. IMPRESSION Increased tracer uptake at L3 on the right, and L4 on the left, corresponding to what I believe are hypertrophic facet changes. Elías Cid MD NM ORDERABLES * CT LUMBAR SPINE WITH CONTRAST (04/14/2015 8:44 AM MOLD SPRAYER) Anatomical Region Laterality Modality Spine Computed Tomogra phy 04/14/2015 9:46 AM MOLD SPRAYER Narrative 04/14/2015 9:52 AM MOLD SPRAYER Examination: Post myelogram CT lumbar spine. Indication for examination: Right leg pain with right lower extremity radiculopathy. Previous lumbar surgery.. Post myelogram CT examination of the lumbar spine is performed with thin section helical technique with additional sagittal and coronal reconstructions. Comparison is made with prior lumbar imaging studies. Lumbar thecal sac is featureless, with clumping of nerve roots within the cauda equina consistent with adhesive arachnoiditis. Findings correlate with the appearance on previous MRI examination. There is no mass lesion or fluid collection. There is no fracture or bone destruction. No abnormality is identified at the conus. Axial imaging is performed from T11-S1. T11-T12: Normal in axial projection. T12-L1: Minimal diffuse annular bulge. No nerve root or foraminal encroachment. There is mild encroachment ventral thecal sac. T12-L1: Mild diffuse annular bulge. No focal disc protrusion, nerve root or thecal sac compression. Mild encroachment ventral thecal sac. L1-L2: Similar pattern of mild diffuse annular bulge. No focal disc protrusion is identified. Foramina appear symmetric. L2-3: Mild diffuse annular bulge. Facet and ligamentum flavum hypertrophy. Findings result in mild central canal stenosis. No focal disc protrusion is identified. There is no high-grade foraminal encroachment. L3-4: Diffuse annular bulge with facet and ligamentum flavum hypertrophy. Findings result in relatively mild central canal and lateral recess stenosis. No focal disc protrusion. Foramina appear symmetric. L4-5: Advanced degenerative change with endplate hypertrophy and mild diffuse annular bulge. There is facet arthrosis. Findings result in mild central canal stenosis. There is mild bony encroachment L4 foramen bilaterally at this level. This appears symmetric. L5-S1: Advanced degenerative change. There is facet hypertrophy. Mild endplate hypertrophy. No focal disc protrusion is identified. There is no nerve root compression or foraminal encroachment. No thecal sac compression. Conclusion: Hypertrophic and degenerative change all levels as described in detail above. No focal disc protrusion, nerve root compression or high-grade foraminal encroachment. Mild bony encroachment L4 foramen bilaterally. Mild central canal stenosis L2-3, L3-4 and L4-5. No high-grade thecal sac compression. Findings consistent with arachnoiditis as described. No discrete abnormality is identified on this examination to specifically correlate with the current clinical presentation of right lower extremity radiculopathy. Procedure Note Rick Iqbal MD - 04/14/2015 Examination: Post myelogram CT lumbar spine. Indication for examination: Right leg pain with right lower extremity radiculopathy. Previous lumbar surgery.. Post myelogram CT examination of the lumbar spine is performed with thin section helical technique with additional sagittal and coronal reconstructions. Comparison is made with prior lumbar imaging studies. Lumbar thecal sac is featureless, with clumping of nerve roots within the cauda equina consistent with adhesive arachnoiditis. Findings correlate with the appearance on previous MRI examination. There is no mass lesion or fluid collection. There is no fracture or bone destruction. No abnormality is identified at the conus. Axial imaging is performed from T11-S1. T11-T12: Normal in axial projection. T12-L1: Minimal diffuse annular bulge. No nerve root or foraminal encroachment. There is mild encroachment ventral thecal sac. T12-L1: Mild diffuse annular bulge. No focal disc protrusion, nerve root or thecal sac compression. Mild encroachment ventral thecal sac. L1-L2: Similar pattern of mild diffuse annular bulge. No focal disc protrusion is identified. Foramina appear symmetric. L2-3: Mild diffuse annular bulge. Facet and ligamentum flavum hypertrophy. Findings result in mild central canal stenosis. No focal disc protrusion is identified. There is no high-grade foraminal encroachment. L3-4: Diffuse annular bulge with facet and ligamentum flavum hypertrophy. Findings result in relatively mild central canal and lateral recess stenosis. No focal disc protrusion. Foramina appear symmetric. L4-5: Advanced degenerative change with endplate hypertrophy and mild diffuse annular bulge. There is facet arthrosis. Findings result in mild central canal stenosis. There is mild bony encroachment L4 foramen bilaterally at this level. This appears symmetric. L5-S1: Advanced degenerative change. There is facet hypertrophy. Mild endplate hypertrophy. No focal disc protrusion is identified. There is no nerve root compression or foraminal encroachment. No thecal sac compression. Conclusion: Hypertrophic and degenerative change all levels as described in detail above. No focal disc protrusion, nerve root compression or high-grade foraminal encroachment. Mild bony encroachment L4 foramen bilaterally. Mild central canal stenosis L2-3, L3-4 and L4-5. No high-grade thecal sac compression. Findings consistent with arachnoiditis as described. No discrete abnormality is identified on this examination to specifically correlate with the current clinical presentation of right lower extremity radiculopathy. Jimmy Haas MD CT ORDERABLES * FL FLUORO MYELOGRAM LUMBAR (04/14/2015 8:20 AM MOLD SPRAYER) Anatomical Region Laterality Modality Spine Radiographic Bernice ging 04/14/2015 9:36 AM MOLD SPRAYER Narrative 04/14/2015 9:42 AM MOLD SPRAYER Lumbar myelogram Indication for examination: Persistent right leg pain with lumbar radiculopathy. Previous lumbar surgery. This procedure was performed in the radiology Department by Dr. Iqbal. After explanation of the procedure and routine skin prep, a 22-gauge spinal needle was placed into the lumbar subarachnoid space at L2-3 under fluoroscopic control. 15 cc of Omnipaque-180 contrast were injected. The needle was removed. Multiple radiographic images of the lumbar spine were obtained. She tolerated the procedure well without apparent immediate complication. Fluoroscopy time one minute. Lumbar thecal sac is relatively featureless, with markedly diminished filling of the lumbar root sleeves particularly inferiorly, consistent with arachnoiditis. There are ventral defects from T12-L1 through L4-L5. There is encroachment thecal sac at L2-3, L3-4 and L4-5. No instability is identified in flexion or extension. There is no gross mass lesion. There is no fracture or bone destruction. Conclusion: Findings consistent with arachnoiditis as described. Thecal sac encroachment L2-3, L3-4 and L4-5. No instability identified. Post myelogram CT scan will be performed. Procedure Note Rick Iqbal MD - 04/14/2015 Lumbar myelogram Indication for examination: Persistent right leg pain with lumbar radiculopathy. Previous lumbar surgery. This procedure was performed in the radiology Department by Dr. Iqbal. After explanation of the procedure and routine skin prep, a 22-gauge spinal needle was placed into the lumbar subarachnoid space at L2-3 under fluoroscopic control. 15 cc of Omnipaque-180 contrast were injected. The needle was removed. Multiple radiographic images of the lumbar spine were obtained. She tolerated the procedure well without apparent immediate complication. Fluoroscopy time one minute. Lumbar thecal sac is relatively featureless, with markedly diminished filling of the lumbar root sleeves particularly inferiorly, consistent with arachnoiditis. There are ventral defects from T12-L1 through L4-L5. There is encroachment thecal sac at L2-3, L3-4 and L4-5. No instability is identified in flexion or extension. There is no gross mass lesion. There is no fracture or bone destruction. Conclusion: Findings consistent with arachnoiditis as described. Thecal sac encroachment L2-3, L3-4 and L4-5. No instability identified. Post myelogram CT scan will be performed. Jimmy aHas MD FLUOROSCOPY ORD ERABLES * XR TIBIA FIBULA RIGHT 2VW (03/08/2015 11:46 AM MOLD SPRAYER) Anatomical Region Laterality Modality Lower Extremity Radiographic Bernice ging 03/08/2015 4:22 PM MOLD SPRAYER Impressions 03/08/2015 4:41 PM MOLD SPRAYER UNREMARKABLE Edited by Mey Mcfarland on 03/08/2015 4:37 PM Narrative 03/08/2015 4:41 PM MOLD SPRAYER RIGHT TIBIA AND FIBULA 2 VIEWS HISTORY: Right lower leg pain and quick pain worsening FINDINGS: No fracture or malalignment. No periosteal reaction. No bony lesion. Procedure Note Raul Young MD - 03/08/2015 RIGHT TIBIA AND FIBULA 2 VIEWS HISTORY: Right lower leg pain and quick pain worsening FINDINGS: No fracture or malalignment. No periosteal reaction. No bony lesion. IMPRESSION UNREMARKABLE Edited by Mey Mcfarland on 03/08/2015 4:37 PM Elías Cid MD DIAGNOSTIC IMAGING O RDERABLES * MRI LUMBAR SPINE WO CONTRAST (03/04/2015 3:07 PM MOLD SPRAYER) Anatomical Region Laterality Modality Spine Magnetic Resonan ce 03/04/2015 4:38 PM MOLD SPRAYER Impressions 03/04/2015 4:52 PM MOLD SPRAYER Degenerative disc disease within the lumbar spine most significant at L4-5 where there are moderate lateral recess and neural foraminal stenoses Appearance of an empty thecal sac from L3-4 extending caudally, the appearance of which is most consistent with adhesive arachnoiditis which can be seen in the setting of prior surgery. Narrative 03/04/2015 4:52 PM MOLD SPRAYER MRI Lumbar Spine Without Contrast INDICATION: Low back pain with right leg pain, lumbar discectomy in 1994 TECHNIQUE: Multisequence, multiplanar MRI sequences of the lumbar spine without contrast FINDINGS: Modic changes present surrounding the L4-5 and L5-S1 discs with hemangiomas within the T10 and L4 vertebral bodies, otherwise the visualized marrow signal is normal. The visualized cord signal is normal. The nerve roots beginning at the L2-3 level are displaced peripherally with the appearance of an empty thecal sac from L3-4 extending caudally. The conus terminates at the level of T12-L1. The following levels are discussed in detail: L1-2: There is a disc bulge with mild left foraminal narrowing L2-3: There is a disc bulge with ligamentum flavum hypertrophy resulting in mild bilateral foraminal narrowing L3-4: There is a disc bulge with facet arthropathy which results in mild right foraminal narrowing L4-5: There is a disc bulge with diffuse loss of disc height and a prominent lateral disc osteophytes which results in moderate right mild left lateral recess stenosis in addition to moderate bilateral neural foraminal stenoses L5-S1: There is a disc bulge and facet arthropathy resulting in mild bilateral recess stenoses No significant soft tissue abnormality is identified. Procedure Note Kristen Salazar MD - 03/04/2015 MRI Lumbar Spine Without Contrast INDICATION: Low back pain with right leg pain, lumbar discectomy in 1994 TECHNIQUE: Multisequence, multiplanar MRI sequences of the lumbar spine without contrast FINDINGS: Modic changes present surrounding the L4-5 and L5-S1 discs with hemangiomas within the T10 and L4 vertebral bodies, otherwise the visualized marrow signal is normal. The visualized cord signal is normal. The nerve roots beginning at the L2-3 level are displaced peripherally with the appearance of an empty thecal sac from L3-4 extending caudally. The conus terminates at the level of T12-L1. The following levels are discussed in detail: L1-2: There is a disc bulge with mild left foraminal narrowing L2-3: There is a disc bulge with ligamentum flavum hypertrophy resulting in mild bilateral foraminal narrowing L3-4: There is a disc bulge with facet arthropathy which results in mild right foraminal narrowing L4-5: There is a disc bulge with diffuse loss of disc height and a prominent lateral disc osteophytes which results in moderate right mild left lateral recess stenosis in addition to moderate bilateral neural foraminal stenoses L5-S1: There is a disc bulge and facet arthropathy resulting in mild bilateral recess stenoses No significant soft tissue abnormality is identified. IMPRESSION Degenerative disc disease within the lumbar spine most significant at L4-5 where there are moderate lateral recess and neural foraminal stenoses Appearance of an empty thecal sac from L3-4 extending caudally, the appearance of which is most consistent with adhesive arachnoiditis which can be seen in the setting of prior surgery. Elías Cid MD MR ORDERABLES * MRI SPINE LUMBAR WITH AND WITHOUT CONTRAST (06/02/2014 5:47 PM CDT) Anatomical Region Laterality Modality Spine Magnetic Resonan ce 06/02/2014 6:08 PM CDT Impressions 06/03/2014 8:03 AM CDT Multilevel degenerative changes as above. Please clinically correlate and further imaging evaluation could be obtained as warranted. Edited by Noreen Lira on 06/03/2014 7:08 AM Narrative 06/03/2014 8:03 AM CDT MRI LUMBAR SPINE WITH AND WITHOUT CONTRAST INDICATION: Back pain radiates to the left thigh. TECHNIQUE: Standard MRI sequences of the lumbar spine with and without contrast. Omniscan 18 cc was administered. FINDINGS: No bone marrow edema or compression deformity is seen. Lumbar spine is somewhat straightened. The spinal cord ends at T12. T12-L1: Diffuse disc bulge and mild canal stenosis L1-L2: Diffuse disc bulge and mild canal stenosis. L2-L3: Diffuse disc bulge ligamentum hypertrophy and facet arthropathy and moderate canal stenosis and moderate bilateral neural foraminal narrowing. L3-L4: Diffuse disc bulge, ligamentum flavum hypertrophy and facet arthropathy and moderate canal stenosis. Mild bilateral neural foraminal narrowing. L4-L5: Diffuse disc bulge, ligamentum flavum hypertrophy and moderate to severe canal stenosis. Moderate facet arthropathy. Moderate bilateral neural foraminal narrowing. L5-S1: Diffuse disc bulge and mild canal stenosis. Mild facet arthropathy. Mild bilateral neural foraminal narrowing. No abnormal enhancement is seen. Procedure Note Raul Young MD - 06/03/2014 MRI LUMBAR SPINE WITH AND WITHOUT CONTRAST INDICATION: Back pain radiates to the left thigh. TECHNIQUE: Standard MRI sequences of the lumbar spine with and without contrast. Omniscan 18 cc was administered. FINDINGS: No bone marrow edema or compression deformity is seen. Lumbar spine is somewhat straightened. The spinal cord ends at T12. T12-L1: Diffuse disc bulge and mild canal stenosis L1-L2: Diffuse disc bulge and mild canal stenosis. L2-L3: Diffuse disc bulge ligamentum hypertrophy and facet arthropathy and moderate canal stenosis and moderate bilateral neural foraminal narrowing. L3-L4: Diffuse disc bulge, ligamentum flavum hypertrophy and facet arthropathy and moderate canal stenosis. Mild bilateral neural foraminal narrowing. L4-L5: Diffuse disc bulge, ligamentum flavum hypertrophy and moderate to severe canal stenosis. Moderate facet arthropathy. Moderate bilateral neural foraminal narrowing. L5-S1: Diffuse disc bulge and mild canal stenosis. Mild facet arthropathy. Mild bilateral neural foraminal narrowing. No abnormal enhancement is seen. IMPRESSION Multilevel degenerative changes as above. Please clinically correlate and further imaging evaluation could be obtained as warranted. Edited by Noreen Lira on 06/03/2014 7:08 AM Elías Cid MD MR ORDERABLES * CREATININE BLOOD - POINT OF CARE (IP) (06/02/2014 5:00 PM CDT) Creatinine POCT 0.87 0.7 - 1.2 mg/dL [facility] TEST[facility] QC Verified Yes [facility] POC T TESTING Blood specimen (specimen) BLOOD SPECIMEN / Unknown 06/02/2014 5:00 PM CDT Elías Cid MD LAB - POINT OF CARE ORDERABLES [facility] POCT TEST[facility] [id number] [phone] * US BREAST UNILATERAL LEFT (01/17/2012 10:33 AM MOLD SPRAYER) Anatomical Region Laterality Modality Breast Left Ultrasound 01/17/2012 10:3 4 AM MOLD SPRAYER Narrative 01/17/2012 10:45 AM MOLD SPRAYER ULTRASOUND LEFT BREAST INDICATION: Abnormal screening mammogram from outside institution with increased density upper outer quadrant left breast and questionable underlying cystic areas. TECHNIQUE: Sonographic images of the left breast were obtained from 12:00 through 3:00. FINDINGS: No discrete solid mass or cyst can be seen in the upper outer quadrant of the left breast. Only dense breast parenchyma is identified. BI-RADS 2: Benign finding. RECOMMENDATION: Continue screening mammography in one year, back on schedule. Procedure Note Baranski, Mary Jo J, MD - 01/17/2012 ULTRASOUND LEFT BREAST INDICATION: Abnormal screening mammogram from outside institution with increased density upper outer quadrant left breast and questionable underlying cystic areas. TECHNIQUE: Sonographic images of the left breast were obtained from 12:00 through 3:00. FINDINGS: No discrete solid mass or cyst can be seen in the upper outer quadrant of the left breast. Only dense breast parenchyma is identified. BI-RADS 2: Benign finding. RECOMMENDATION: Continue screening mammography in one year, back on schedule. Carlos Desouza MD US ORDERABLES * MAMMO DIAG DIRECT DIGITAL IMAGE BILA (01/17/2012 9:48 AM MOLD SPRAYER) Anatomical Region Laterality Modality Bilateral Mammography 01/17/2012 10:3 7 AM MOLD SPRAYER Narrative 01/17/2012 11:37 AM MOLD SPRAYER DIGITAL BILATERAL DIAGNOSTIC MAMMOGRAMS WITH CAD DATE: 01/17/2012 PREVIOUS EXAM DATE: 01/08/2012. Outside mammograms from [facility]. INDICATION: Focal asymmetry of the lower right breast. Suggestion of a developing nodular density in the upper outer left breast. TECHNIQUE: Right ML and right MLO repeat with spot compression of the inferior right breast in MLO projection. Left ML and spot compression left CC x2. These images were interpreted with the aid of CAD. TECHNOLOGIST: Jayla Belle, RT(R)(M). TISSUE DENSITY: Average. FINDINGS: Upon repeat MLO of the right breast and spot compression of the right breast, an asymmetric density in the inferior aspect of the right breast does not persist. Upon spot compression views of the left breast, there is asymmetrically dense fibronodular parenchymal pattern. Neither spot compression nor ultrasound of the upper outer quadrant of the left breast demonstrates a discrete solid or cystic mass. ASSESSMENT: BI-RADS 2 - Benign Finding. RECOMMENDATIONS: Continue screening mammography in one year. The above findings should be correlated with physical examination. A relatively nonspecific study should not preclude additional evaluation if suspicious findings are present clinically. An [employer] [facility] utilizes [employer] as a reminder system to notify patients of their next recommended mammogram. Procedure Note Mary Jo Hare MD - 01/17/2012 DIGITAL BILATERAL DIAGNOSTIC MAMMOGRAMS WITH CAD DATE: 01/17/2012 PREVIOUS EXAM DATE: 01/08/2012. Outside mammograms from [facility]. INDICATION: Focal asymmetry of the lower right breast. Suggestion of a developing nodular density in the upper outer left breast. TECHNIQUE: Right ML and right MLO repeat with spot compression of the inferior right breast in MLO projection. Left ML and spot compression left CC x2. These images were interpreted with the aid of CAD. TECHNOLOGIST: Jayla Belle, RT(R)(M). TISSUE DENSITY: Average. FINDINGS: Upon repeat MLO of the right breast and spot compression of the right breast, an asymmetric density in the inferior aspect of the right breast does not persist. Upon spot compression views of the left breast, there is asymmetrically dense fibronodular parenchymal pattern. Neither spot compression nor ultrasound of the upper outer quadrant of the left breast demonstrates a discrete solid or cystic mass. ASSESSMENT: BI-RADS 2 - Benign Finding. RECOMMENDATIONS: Continue screening mammography in one year. The above findings should be correlated with physical examination. A relatively nonspecific study should not preclude additional evaluation if suspicious findings are present clinically. An [employer] [facility] utilizes [employer] as a reminder system to notify patients of their next recommended mammogram. Carlos Desouza MD MAMMO ORDERABLES * (ABNORMAL) URINALYSIS - POINT OF CARE (10/13/2011 11:13 AM CDT) Pathologist [facility] Clarity UA POCT Color UA POCT clear Leukocyte UA large Negative Nitrite UA POCT neg Negative Urobilinogen UA POCT 0.1 0.1 - 1.0 EU/dL Protein UA POCT trace Negative pH UA 5.0 5.0 - 8.0 pH units Blood UA large Negative Specific [place] UA POCT 1.002 1.002 - 1.030 Ketone UA trace Negative Bilirubin UA POCT neg Negative Glucose UA trace Negative Urine specimen (specimen) URINE / Unknown Carlos Desouza MD LAB - POINT OF CARE ORDERABLES * CULTURE URINE COMPREHENSIVE (PO REF LAB) (10/13/2011 11:11 AM CDT) Urine Culture Comprehensive Final report [facility] ACCOUNT BILL Result 1 Klebsiella pneumoniae [facility] ACCOUNT BILL Comment:50,000-100,000 colon y forming units per mL Antimicrobial Susceptibility [facility] ACCOUNT BILL Comment: S = Susceptible; I = Intermediate; R = Resistant P = Positive; N = Negative MICS are expressed in micrograms per mL Antibiotic RSLT#1 RSLT#2 RSLT#3 RSLT#4 Amoxicillin/Clavulanic Acid S Ampicillin R Cefazolin S Cefepime S Ceftriaxone S Cefuroxime S Cephalothin S Ciprofloxacin S ESBL N Ertapenem S Gentamicin S Imipenem S Levofloxacin S Nitrofurantoin I Piperacillin R Tetracycline S Tobramycin S Trimethoprim/Sulfa S URINE / Unknown 10/13/2011 1 1:11 AM CDT 10/13/2011 8:32 PM CDT Narrative Resulting Agency Comment [facility] [address] [id number] Carlos Desouza MD LAB - MICROBIOLOGY ORDERABLES [facility] ACCOUNT BILL * PAP IG INV HPV RFLX KIN (PO REF LAB) (10/13/2011 10:50 AM CDT) Diagnosis [facility] ACCOUNT BILL Comment:NEGATIVE FOR INTRAEP ITHELIAL LESION AND MALIGNANCY. Specimen Adequacy [facility] ACCOUNT BILL Comment:Satisfactory for dannielle luation. Clinician Provided ICD9 [facility] ACCOUNT BILL Comment: V72.31 ; Routine gynecological examination V73.81 ; Special screening examination, human papillomavirus [HPV] Performed by [facility] ACCOUNT BILL Comment:Rosa Melchor, Radiologic Technician (ASCP) Comment . [facility] ACCOUNT BILL Note [facility] ACCOUNT BILL Comment: The Pap smear is a screening test designed to aid in the detection of premalignant and malignant conditions of the uterine cervix. It is not a diagnostic procedure and should not be used as the sole means of detecting cervical cancer. Both false-positive and false-negative reports do occur. . IGLBP CPT Code Automation [facility] ACCOUNT BILL Comment: This liquid based ThinPrep(R) pap test was screened with the use of an image guided system. Human papillomavirus Invader High Risk Negative Negative [facility] ACCOUNT BILL Comment: This test detects fourteen high-risk HPV types (16/18/31/33/35/39/45/ 51/52/56/58/59/66/68) without differentiation. MICROSCOPIC CYTOLOGIC EXAMINATION OF SMEAR OF SPECIMEN FROM FEMALE GENITAL TRACT PREPARED USING PAPANICOLAOU TECHNIQUE / Unknown 10/13/2011 10:50 AM CDT 10/14/2011 2:13 AM CDT Narrative [facility] ACCOUNT BILL - 10/24/2011 10:42 AM CDT No. of containers..01 CYTYC Thin Prep Vial Resulting Agency Comment [facility] [address] [facility] [place] [id number] Carlos Desouza MD LAB - PATHOLOGY/CYT OLOGY ORDERABLES [facility] ACCOUNT BILL * PAP SMEAR IG RFLX HPV ASCU (PO REF LAB) (10/10/2010 9:45 AM CDT) Only the most recent of2 resultswithin the time period is included. Diagnosis [facility] ACCOUNT BILL Comment: NEGATIVE FOR INTRAEPITHELIAL LESION AND MALIGNANCY. FUNGAL ORGANISMS MORPHOLOGICALLY CONSISTENT WITH BRAYAN SPECIES ARE PRESENT. THIS SPECIMEN WAS RESCREENED PART OF OUR BOILER/CHILLER OPERATOR PROGRAM. Specimen Adequacy [facility] ACCOUNT BILL Comment:Satisfactory for dannielle luation. No endocervical component is identified. Clinician Provided ICD9 [facility] ACCOUNT BILL Comment:V72.31 ; Routine crystal attacher ecological examination Performed by [facility] ACCOUNT BILL Comment:Megan Singh, Cyto technologist (ASCP) QC Reviewed by [facility] ACCOUNT BILL Comment:Ellis Stevens Radiologic Technician (ASCP) Comment . [facility] ACCOUNT BILL Note [facility] ACCOUNT BILL Comment: The Pap smear is a screening test designed to aid in the detection of premalignant and malignant conditions of the uterine cervix. It is not a diagnostic procedure and should not be used as the sole means of detecting cervical cancer. Both false-positive and false-negative reports do occur. . IGLBP CPT Code Automation [facility] ACCOUNT BILL Comment: This liquid based ThinPrep(R) pap test was screened with the use of an image guided system. Reflex [facility] ACCOUNT BILL Comment: The HPV DNA reflex criteria were not met with this specimen result therefore, no HPV testing was performed. . MICROSCOPIC CYTOLOGIC EXAMINATION OF SMEAR OF SPECIMEN FROM FEMALE GENITAL TRACT PREPARED USING PAPANICOLAOU TECHNIQUE / Unknown 10/10/2010 9:45 AM CDT 10/11/2010 2:45 AM CDT Narrative [facility] ACCOUNT BILL - 10/13/2010 12:14 PM CDT No. of containers..01 CYTYC Thin Prep Vial Resulting Agency Comment [facility] [address] Melendez [phone] Carlos Desouza MD LAB - PATHOLOGY/CYT OLOGY ORDERABLES Performing Organization Address City/[facility]/ZIP Co de Phone Number [facility] ACCOUNT BILL * PAP THIN PREP REFLX HPV (PO REF LAB) (10/08/2009 10:22 AM CDT) Report Status FINAL [facility] Clinical Information [facility] Comment:PT HAS HAD A HY Ultrasound Date [facility] Comment:Information not prov ided Previous Pap [facility] Comment:Information not prov ided Prev. BX [facility] Comment:Information not prov ided Source [facility] Comment:Information not prov ided Statement of Adequacy [facility] Comment:SATISFACTORY FOR DANNIELLE LUATION Interpretation/Resul t [facility] Comment:Negative for intraep ithelial lesion or malignancy. Comment [facility] Comment: This Pap test has been evaluated with computer assisted technology. Based on the cytology result, reflex High Risk HPV DNA testing was not performed. Radiologic Technician [facility] Comment: KMY, CT(ASCP) Test Performed at: [facility] [address] [place] [address] AUGUSTUS PAIGE DO MICROSCOPIC CYTOLOGIC EXAMINATION OF SMEAR OF SPECIMEN FROM FEMALE GENITAL TRACT PREPARED USING PAPANICOLAOU TECHNIQUE / Unknown 10/08/2009 10:22 AM CDT 10/10/2009 11:53 PM CDT Carlos Desouza MD LAB - PATHOLOGY/CYT OLOGY ORDERABLES [facility] [address] [place] [address] Care Teams [employer] Bookkeeper Relationship Specialty Start Date End Date Vincent Ba MD [address] [place], [place] [id number] PCP - General 10/06/08 [place] [id number] [place] [id number] Anesthesiology-Pain Management 06/01/15 [place] [address] [place] [address] Cardiovascular Disease 12/12/18 [place] [address] [place] [id number] Cardiovascular Disease 06/14/23
--- OUTSIDE RECORDS SUMMARY | 2024-04-08 10:40 | XMS_ITS | Clinical Summary ---
Author Organization [facility] [employer] Address [address] [place] [address] Care Team Providers Care Cost Accounting Analyst Name Role Phone Vincent Ba MD Primary Care Provider [phone] Elías Cid MD Unavailable [phone] Cale Cline MD Unavailable Unavailable Tricia Witt MD Unavailable [phone] Source Comments [facility],non-owned Affiliates and Associated Physician Practices is amultiple site organization consisting of ambulatory clinics and hospital sitesin [place], [place], [place] and [place]. This disclosure is being madepursuant to the Care Everywhere program and may not contain all information available regarding this patient. Last updated 17.[facility] Allergies No known active allergies Medications * Be aware that medications may not be up to date on this document. Alwaysverify current medications with the patient. Medication Sig Dispensed Refills Start Date End Date Status gabapentin (NEURONTIN) 300 MG capsule Take 2 (two) capsules by mouth at bedtime 1 02/15/2015 Active Multiple Vitamins-Minerals (ONE-A-DAY MENOPAUSE FORMULA PO) Take 1 tablet by mouth once daily Active acetaminophen (Tylenol) 500 MG capsule Take 2 (two) capsules by mouth 3 times daily Take for ten days then as needed. 07/02/2023 Active oxyCODONE, immediate release, (Roxicodone) 10 MG tabletIndications:Acu te postoperative pain Take 0.5 (one-half) tablet to 1 (one) tablet by mouth every 4 hours as needed for Pain (PAIN) 30 tablet 07/02/2023 Active dilTIAZem coated beads 24hr (Cardizem CD) 240 MG capsule Take 1 (one) capsule by mouth once daily Do not crush or chew. 90 capsule 3 11/13/2023 Active atorvastatin (Lipitor) 40 MG tablet Take 1 (one) tablet by mouth at bedtime 90 tablet 3 11/13/2023 Active lisinopril-hydroCHLOR Othiazide (Prinzide; Zestoretic) 20-12.5 MG tablet Take 1 (one) tablet by mouth once daily 90 tablet 3 11/13/2023 Active amitriptyline (Elavil) 25 MG tablet Take 1 (one) tablet by mouth at bedtime 11/13/2023 Active Active Problems Problem Noted Date Diagnosed Date [...] Date Resolved Date Screening for condition 10/05/200809/13 Overview (11/12/2014): Adult Abstraction Problem List Screening Dexa Scan (Bone Density): Result: Negative Date: 2006 Colonoscopy: Result: Negative Date: 2004 Pap Smear: Result: Negative Date: 10/07/07 Mammogram: Result: Negative Date: 12/05/06 Immunizations Name Administration Dates Next Due INFLUENZA VACCINE 11/06/2010 Family History Medical History Relation Name Comments Stroke Father Diabetes Mother Heart Disease Mother Stroke Mother Hypertension Sister 1 Diabetes Sister 2 Relation Name Status Comments Brother Alive Father Mother Sister 1 Alive Sister 2 Alive Social History Tobacco Use Types Packs/Day Years [...] Recorded Patient Health Questionnaire-2 Score 0 09/03/2023 [facility] [place] [facility] Occupat ional Health - Occupational Stress [...] money to buy more. Never true 07/03/19 24 Within the past 12 months, t he [...] place to sleep or slept in a halfway (including now)? No 07/03/2023 Sex and Gender [...] Mass Index 34.87 11/13/2023 10:37 AM CDT Plan of Treatment Upcoming Encounters Date Type Department Care Team (Late st Contact Info) Description 05/13/2024 9:30 AM CDT Office Visit [facility] [address], [address] [place] [address] [place] [address] [address] [place] [address] Health Maintenance Due Date Last Done Comments BONE DENSITY TESTING 1950 COLOGUARD (AGES 45-75) - COLON CA SCREENING 1950 CT COLONOGRAPHY - COLON CA SCREENING 1950 FIT - COLON CA SCREENING 1950 FLEX SIG - COLON CA SCREENING 1950 MEDICARE AWV 12 MONTHS 1950 HEPATITIS C SCREENING 11/21/1967 DTAP/TDAP/TD VACCINES (1 - Tdap) 1968 PNEUMOCOCCAL VACCINE 50+ (1 of 1 - PCV) 11/26/1999 ZOSTER VACCINE (1 of 2) 11/26/1999 Respiratory Syncytial Virus (RSV) Vaccine Pt: or over 60 yrs (1 - Risk 60-74 years 1-dose series) 2009 COVID-19 VACCINE ( - season) 2023 12/29/2020, 03/06/2020, 02/07/2020 INFLUENZA VACCINE (#1) 2023 , 10/23/2018, 11/08/2017, Additional history exists DEPRESSION SCREENING 02/13/2024 04/11/2023, 04/27/19 22 MAMMOGRAM 09/13/2024 09/13/2022, 08/13, 09/06/2020, Additional history exists COLON MONITORING 05/18/2026 05/18/2016, 05/18/2016 COLONOSCOPY - COLON CA SCREENING 05/18/2026 05/18/2016, 05/18/2016 Colorectal Cancer Screening 05/18/2026 SCREENING FOR DIABETES 05/27/2026 , 04/05/2021, 04/21/2016 HEPATITIS B VACCINE Aged Out No longe r eligible based on patient's age to complete this topic HIB VACCINE Aged Out No longer eligi ble based on patient's age to complete this topic HPV VACCINE Aged Out No longer eligi ble based on patient's age to complete this topic MENINGOCOCCAL (Group B) VACCINE Aged Out No longer eligible based on patient's age to complete this topic MENINGOCOCCAL VACCINE Aged Out No roseline john eligible based on patient's age to complete this topic Medical Devices Implanted Type Area Vat Operator Device Identifier Shelf Expiration Date Model / Serial / Lot Prem Bone [place]-G Hv 40/20 Implanted:Qty: 1 on 05/02/2021 by Augustus Davis MD at [facility] Right: Knee [employer] 06/02/2022 600-15-100 / / [id number] Tray Tib 71mm Kn Cocr I Beam Implanted:Qty: 1 on 05/02/2021 by Augustus Davis MD at [facility] Right: Knee [employer] 02/08/2031 [id number] / / [id number] Cmpnt Fem Kn Rt Cr Cmnt Prm Vngrd Intlk Implanted:Qty: 1 on 05/02/2021 by Augustus Davis MD at [facility] Right: Knee [employer] 03/07/2031 [id number] / / [id number] Cmpnt Ptlr 28mm 1 Pg Wire Ascnt Arcm Kn Implanted:Qty: 1 on 05/02/2021 by Augustus Davis MD at [facility] Right: Knee [employer] 08/26/2025 [id number] / / [id number] Brng [id number] Vngrd Arcm Kn Ant Stab Implanted:Qty: 1 on 05/02/2021 by Augustus Davis MD at [facility] Right: Knee [employer] 03/30/2026 [id number] / / [id number] Brng [id number] Vngrd Vivacit-E Kn Ant Stab Implanted:Qty: 1 on 07/02/2023 by Augustus Davis MD at [facility] Left: Knee [employer] 04/18/2028 [id number] / / [id number] Cmnt Bone Plc R 40gm Grn Implanted:Qty: 1 on 07/02/2023 by Augustus Davis MD at [facility] Left: Knee [employer] 10/12/2025 [id number] / / [id number] Cmpnt Fem Kn Lt Cr Cmnt Prm Vngrd Intlk 62.5 Mm Implanted:Qty: 1 on 07/02/2023 by Augustus Davis MD at [facility] Left: Knee [employer] 04/29/2033 [id number] / / [id number] Cmpnt Ptlr Std 28mm 3 Pg Kn Ser A Implanted:Qty: 1 on 07/02/2023 by Augustus Davis MD at [facility] Left: Knee [employer] 04/18/2028 [id number] / / [id number] Tray Tib 67mm Kn Cocr I Beam Implanted:Qty: 1 on 07/02/2023 by Augustus Davis MD at [facility] Left: Knee [employer] 06/17/2032 [id number] / / [id number] Procedures Procedure Name Priority Date/Time Associated Diagnosis Comments COMPREHENSIVE METABOLIC PANEL STAT 05/28/2023 12:19 PM CDT Preoperative examination MAMMO BILAT SCREENING W REDDY Routine 09/13/2022 9:14 AM CDT Encounter for screening mammogram for malignant neoplasm of breast ENDOSCOPY, COLON, SCREENING Routine 05/18/2016 11:07 AM CDT from Last 3 Months or Most Recently Relevant to Health Maintenance Results * (ABNORMAL) COMPREHENSIVE METABOLIC PANEL (05/28/2023 12:19 PM CDT) Glucose 93 70 - 105 mg/dL 05/28/2023 12:40 PM CDT [facility] Sodium 141 136 - 145 mmol/L 05/28/2023 12:40 PM CDT [facility] Potassium 4.6 3.5 - 5.1 mmol/L 05/28/2023 12:40 PM CDT [facility] Chloride 102 98 - 107 mmol/L 05/28/2023 12:40 PM CDT [facility] CO2 27 22 - 29 mmol/L 05/28/2023 12:40 PM CDT [facility] Calcium 10.1 8.4 - 10.4 mg/dL 05/28/2023 12:40 PM CDT [facility] Anion Gap 12 6 - 16 mmol/L 05/28/2023 12:40 PM CDT [facility] BUN 29(H) 7 - 26 mg/dL 05/28/2023 12:40 PM CDT [facility] Creatinine 1.44(H) 0.57 - 1.11 mg/dL 05/28/2023 12:40 PM CDT [facility] Alkaline Phosphatase 105 40 - 150 U/L 05/28/2023 12:40 PM CDT [facility] ALT 16 0 - 55 U/L 05/28/2023 12:40 PM CDT [facility] AST 18 5 - 34 U/L 05/28/2023 12:40 PM CDT [facility] Protein Total 7.8 6.4 - 8.3 gm/dL 05/28/2023 12:40 PM CDT [facility] Albumin 4.1 3.4 - 5.0 gm/dL 05/28/2023 12:40 PM CDT [facility] Bilirubin Total 0.5 0.2 - 1.2 mg/dL 05/28/2023 12:40 PM CDT [facility] eGFR by CKD-EPI 38(L) >=90 mL/min/1.7 3 m2 05/28/2023 12:40 PM CDT [facility] Blood BLOOD SPECIMEN / Unknown Venipuncture / Unknown 05/28/2023 12:19 PM CDT 05/28/2023 12:24 PM CDT [facility] SURVEYOR ROD HELPER-ASPHALT PAVING SUPERVISOR LAB - CHEMISTRY O RDERABLES [facility] [address] [place] [address] * MAMMO BILAT SCREENING W REDDY (09/13/2022 9:14 AM CDT) Anatomical Region Laterality Modality Breast Bilateral Mammography [...] change. Carlos Desouza MD MAMMO ORDERABLES * ENDOSCOPY, COLON, SCREENING (05/18/2016 11:07 AM CDT) Report Endoscopy POC _ Patient Name: Tamia Del Rio Procedure Date: 05/18/2016 11:07 AM Date of : 1950 Admit Type: Outpatient Age: 65 Gender: Female Attending MD: Juan Suárez MD _ Procedure: Colonoscopy Indications: Last colonoscopy: 2008, Iron deficiency anemia Providers: Juan Suárez MD (Doctor) Referring MD: Vincent Ba MD (Referring MD), Cale Cline MD (Referring MD) Medicines: Monitored Anesthesia Care [...] by the physician, the nurse and the field research associate in the procedure room. Mental Status Examination: [...] 4-6 weeks Procedure Code(s): --- Professional --- 48531, Colonoscopy, flexible; diagnostic, including collection of specimen(s) by brushing or washing, when performed (separate procedure) --- Technical --- 28718, Colonoscopy, flexible; diagnostic, including collection of specimen(s) by brushing or washing, when performed (separate procedure) Diagnosis Code(s): --- Professional --- D50.9, Iron deficiency anemia, unspecified --- Technical --- D50.9, Iron deficiency anemia, unspecified CPT copyright 2015 [employer] [place] [employer]. All rights reserved. The codes documented in this report are preliminary and upon oracle database analyst review may be revised to meet current compliance requirements. Dr. Juan Suárez MD Juan Suárez MD 05/18/2016 11:44:15 AM This report has been signed electronically. Number of Addenda: 0 Note Initiated On: 05/18/2016 11:07 AM [facility] 05/18/2016 11:0 7 AM CDT Juan Suárez MD GI PROCEDURE [place] [address] from Last 3 Months or Most Recently Relevant to Health Maintenance Advance Directives * Full Code (Latest Code Status on File) Date Activated Date Inactivated Comments 07/02/2023 9:16 AM 07/03/2023 2:31 PM * Full Code Date Activated Date Inactivated Comments 05/02/2021 12:40 PM 05/04/2021 3:38 PM * Full Code Date Activated Date Inactivated Comments 05/10/2016 5:48 PM 05/10/2016 7:46 PM Care Teams Cost Accounting Analyst Relationship Specialty Start Date End Date Vincent Ba MD [address] [place] [id number] PCP - General 10/06/08 [place] [address] [place] [address] Anesthesiology-Pain Management 06/01/15 [place] [address] [place] [address] Cardiovascular Disease 12/12/18 [place] [address] [place] [address] Cardiovascular Disease 06/14/23
--- OUTSIDE RECORDS SUMMARY | 2024-04-08 10:40 | XMS_ITS | Referral Summary ---
Author Organization [facility] [employer] Address [address] [place] [address] Care Team Providers Care Cardiac Rehabilitation Specialist Name Role Phone Vincent Ba MD Primary Care Provider [phone] Elías Cid MD Unavailable [phone] Cale Cline MD Unavailable Unavailable Tricia Witt MD Unavailable [phone] Source Comments [facility],non-owned Affiliates and Associated Physician Practices is amultiple site organization consisting of ambulatory clinics and hospital sitesin [place], [place], [place]. This disclosure is being madepursuant to the Care Everywhere program and may not contain all information available regarding this patient. Last updated 17.[facility] Allergies No known active allergies [...] Administration Dates Next Due INFLUENZA VACCINE 11/06/2010 Social History Tobacco Use Types Packs/Day Years [...] Recorded Patient Health Questionnaire-2 Score 0 09/03/2023 [facility] Occupat ional Health - Occupational Stress [...] place to sleep or slept in a residential (including now)? No 07/03/2023 Sex and Gender [...] Mass Index 34.87 11/13/2023 10:37 AM CDT Functional Status Functional Status Response Date of Assess ment Is person deaf or have serious hearing difficult y? No 05/03/2021 Is person blind or have serious difficulty seein g? No 05/03/2021 Does person have serious dif ficulty walking/climbing stairs? No 05/03/2021 Does person have difficulty dressing/bathing? No 05/03/2021 Does person have difficulty doing errands alone? No 05/03/2021 Cognitive Status Response Date of Assessm ent Does person have difficulty concentrating/remembering/making decisions? No 05/03/2021 Plan of Treatment Upcoming Encounters Date Type Department Care Team (Late st Contact Info) Description 05/13/2024 9:30 AM CDT Office Visit [facility] [address] [place] [address] Pedro Kahn MD [address] [place] [address] Medical Devices Implanted Type Area Product Management Manager Device Identifier Shelf Expiration Date Model / Serial / Lot Prem Bone [place]-G Hv 40/20 Implanted:Qty: 1 on 05/02/2021 by Augustus Davis MD at [facility] Right: Knee [employer] 06/02/2022 600-15-100 / / [id number] Tray Tib 71mm Kn Cocr I Beam Implanted:Qty: 1 on 05/02/2021 by Augustus Davis MD at [facility] Right: Knee [employer] 02/08/2031 [id number] / / [id number] Cmpnt Fem Kn Rt Cr Cmnt Prm Vngrd Intlk Implanted:Qty: 1 on 05/02/2021 by Augustus Davis MD at [facility] Right: Knee [employer] 03/07/2031 [id number] / / [id number] Cmpnt Ptlr 28mm 1 Pg Wire Ascnt Arcm Kn Implanted:Qty: 1 on 05/02/2021 by Augustus Davis MD at [facility] Right: Knee [employer] 08/26/2025 [id number] / / [id number] [id number] Vngrd Arcm Kn Ant Stab Implanted:Qty: 1 on 05/02/2021 by Augustus Davis MD at [facility] Right: Knee [employer] 03/30/2026 [id number] / / [id number] Brng [id number] Vngrd Vivacit-E Kn Ant Stab Implanted:Qty: 1 on 07/02/2023 by Augustus Davis MD at [facility] Left: Knee [employer] 04/18/2028 [id number] / / [id number] Cmnt Bone Plc R 40gm Grn Implanted:Qty: 1 on 07/02/2023 by Augustus Davis MD at [facility] Left: Knee [employer] 10/12/2025 [id number] / / [id number] Cmpnt Fem Kn Lt Cr Cmnt Prm Vngrd Intlk 62.5 Mm Implanted:Qty: 1 on 07/02/2023 by Augustus Davis MD at [facility] Left: Knee [employer] 04/29/2033 [id number] / / [id number] Cmpnt Ptlr Std 28mm 3 Pg Kn Ser A Implanted:Qty: 1 on 07/02/2023 by Augustus Davis MD at [facility] Left: Knee [employer] 04/18/2028 [id number] / / [id number] Tray Tib 67mm Kn Cocr I Beam Implanted:Qty: 1 on 07/02/2023 by Augustus Davis MD at [facility] Left: Knee [employer] 06/17/2032 [id number] / / [id number] Procedures Procedure Name Priority Date/Time Associated Diagnosis [...] - 8.3 gm/dL 05/28/2023 12:40 PM CDT [facility] Albumin 4.1 3.4 - 5.0 gm/dL 05/28/2023 12:40 PM CDT [facility] Bilirubin Total 0.5 0.2 - 1.2 mg/dL 05/28/2023 12:40 PM CDT [facility] eGFR by CKD-EPI 38(L) >=90 mL/min/1.7 3 m2 05/28/2023 12:40 PM CDT [facility] Blood BLOOD SPECIMEN / Unknown Venipuncture / Unknown 05/28/2023 12:19 PM CDT 05/28/2023 12:24 PM CDT [facility] DIGITAL MARKETING ASSISTANT-ASSISTANT TENNIS PROFESSIONAL LAB - CHEMISTRY O RDERABLES [facility] [address] [place] [address] * MAMMO BILAT SCREENING W [...] by the physician, the nurse and the control tower operator in the procedure room. Mental Status Examination: [...] 4-6 weeks Procedure Code(s): --- Professional --- 25498, Colonoscopy, flexible; diagnostic, including collection of specimen(s) by brushing or washing, when performed (separate procedure) --- Technical --- 28537, Colonoscopy, flexible; diagnostic, including collection of specimen(s) by brushing or washing, when performed (separate procedure) Diagnosis Code(s): --- Professional --- D50.9, Iron deficiency anemia, unspecified --- Technical --- D50.9, Iron deficiency anemia, unspecified CPT copyright 2015 [place] [employer]. All rights reserved. The codes documented in this report are preliminary and upon marble cutter review may be revised to meet current compliance requirements. Dr. Juan Suárez MD Juan Suárez MD 05/18/2016 11:44:15 AM This report has been signed electronically. Number of Addenda: 0 Note Initiated On: 05/18/2016 11:07 AM [facility] 05/18/2016 11:0 7 AM CDT Juan Suárez MD GI PROCEDURE ORDERA BLES [facility] [place] [place] [address] from Last 3 Months or Most Recently Relevant to Health Maintenance Advance Directives * Full Code (Latest Code Status on File) Date Activated Date Inactivated Comments 07/02/2023 9:16 AM 07/03/2023 2:31 PM * Full Code Date Activated Date Inactivated Comments 05/02/2021 12:40 PM 05/04/2021 3:38 PM * Full Code Date Activated Date Inactivated Comments 05/10/2016 5:48 PM 05/10/2016 7:46 PM Care Teams Cardiac Rehabilitation Specialist Relationship Specialty Start Date End Date Vincent Ba MD [address] [place] [address] PCP - General 10/06/08 [place] [address] [place] [address] Anesthesiology-Pain Management 06/01/15 [place] [address] [place] [address] Cardiovascular Disease 12/12/18 [place] [address] [place] [address] Cardiovascular Disease 06/14/23
== END 2024-04-08 09:35 | disposition home or self-care (01) ==
LOC: CHSIMG 09:37
PROVIDERS: PCP Family Medicine; Visit Provider Family Medicine
DX: M25.512 Pain in left shoulder (principal); M54.2 Cervicalgia; M54.9 Dorsalgia, unspecified
CPT/HCPCS: 72040; 72072; 73030

== ENCOUNTER 2024-04-23 08:10 | Outpatient (RCR) | payer MEDICARE, SELFPAY ==
--- NOTE | 2024-04-23 09:00 | OPREHPOC ---
Outpatient Therapy Plan of Care This is a Multidisciplinary Plan of Care that may contain components documented by all disciplines (PT, OT, and ST.) PT Problem 1 PT Problem #1 Knowledge Deficit PT Goal 1 Goal / Goal Update The patient will be independent in a home exercise program. Target Visit 4 PT Problem 2 PT Problem #2 Pain PT Goal 1 Goal / Goal Update The patient will report no greater than 2/10 cervical pain with lifting 10# waist to shoulder and shoulder to overhead. Target Visit 8 PT Problem 3 PT Problem #3 Impaired Functional Mobility PT Goal 1 Goal / Goal Update The patient will demonstrate 10% or less self perceived disability per the Neck Index questionnaire. Target Visit 8 PT Problem 4 PT Problem #4 Impaired Range of Motion PT Goal 1 Goal / Goal Update The patient will demonstrate at least 60 degrees bilateral cervical rotation AROM to improve safety with driving. The patient will demonstrate equal shoulder flexion to improve lifting overhead ability. Target Visit 8
--- NOTE | 2024-04-23 09:00 | PTOPEVAL1 ---
Assessment and note entered by Annamarie Medel, PT Evaluation Information Assessment Status Evaluation ICD-10 Condition Codes (PT) Radiculopathy, cervical M54.13 Other ICD-10 Condition Codes ( M47.22, M47.812 PT) Onset 04/21/24 Subjective Information Beverly Del Rio reports she started having pain on the left side of her neck and into her shoulder blade in December 2023. She did have a fall in October 2023 and wonders if she jeni it then. She has tingling into her left arm. She went to the doctor in March and had x-rays then was sent to an immunology specialist. She saw the specialist on 04/21/24 and had an injection. She has not had tingling since the injection and the pain has reduced as well. She notes limitations with lifting. 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 Reported Pain Level Pain Score 0: Self Report Assessment PT Clinical Summary Beverly Del Rio presents with cervical pain and radiculopathy. Recent x-rays showed degenerative disc disease and spondylosis. She has difficulty with lifting. She objectively demonstrates decreased cervical AROM, decreased left shoulder AROM, poor posture, and decreased bilateral shoulder strength. She also has tension in bilateral upper trapezius muscles. She will benefit from skilled PT to address these limitations and improve her daily function. Plan of Care Interventions Electrical Stimulation,Hot Pack/Cold Pack,Manual Therapy,Mechanical Traction,Neuro Re-education, Patient/Caregiver Education,Therapeutic Activities ,Therapeutic Exercise PT Services Indicated Yes Treatment Frequency and 2 times a week for 8 visits Duration These treatments will address the objective and functional deficits as defined above. The patient will be advanced safely and appropriately in order for the patient to progress towards his/her prior level of function. Additional exercises will be introduced and as well as a comprehensive home exercise program upon discharge, if needed, ?to ensure carryover of functional gains achieved in the clinic. This treatment plan has been reviewed and agreement upon by the patient.
--- NOTE | 2024-05-15 08:52 | OPREHPOC ---
Outpatient Therapy Plan of Care This is a Multidisciplinary Plan of Care that may contain components documented by all disciplines (PT, OT, and ST.) PT Problem 1 PT Problem #1 Knowledge Deficit PT Goal 1 Goal / Goal Update The patient will be independent in a home exercise program. Target Visit 4 Progress Met PT Problem 2 PT Problem #2 Pain PT Goal 1 Goal / Goal Update The patient will report no greater than 2/10 cervical pain with lifting 10# waist to shoulder and shoulder to overhead. Target Visit 8 Progress Met PT Problem 3 PT Problem #3 Impaired Functional Mobility PT Goal 1 Goal / Goal Update The patient will demonstrate 10% or less self perceived disability per the Neck Index questionnaire. Target Visit 8 Progress Met PT Problem 4 PT Problem #4 Impaired Range of Motion PT Goal 1 Goal / Goal Update The patient will demonstrate at least 60 degrees bilateral cervical rotation AROM to improve safety with driving. The patient will demonstrate equal shoulder flexion to improve lifting overhead ability. Target Visit 8 Progress Met
--- NOTE | 2024-05-15 08:52 | PTOPDC ---
Assessment and note entered by Annamarie Medel, PT Evaluation Information Assessment Status Discharge ICD-10 Condition Codes (PT) Radiculopathy, cervical M54.13 Other ICD-10 Condition Codes ( M47.22, M47.812 PT) Onset 04/21/24 Subjective Information Beverly Del Rio reports that her neck pain is improved overall but she still has pain increased after working. Reported Pain Level Pain Score 1,0: Self Report Assessment PT Clinical Summary Beverly Del Rio has completed 8 skilled PT visits for cervical pain and radiculopathy. She is reporting minimal pain noting nothing greater than 1/10 and she is able to perform all daily and work activities without difficulty. She demonstrates improved cervical AROM, improved posture, and less tenderness. She has met all goals and will be discharged to an independent HEP. Plan of Care PT Services Indicated No
== END 2024-05-15 09:33 | disposition home or self-care (01) ==
LOC: CHSPT 08:10
PROVIDERS: Visit Provider Orthopaedic Surgery
DX: M47.22 Other spondylosis with radiculopathy, cervical region (principal); M47.812 Spondylosis without myelopathy or radiculopathy, cervical region
CPT/HCPCS: 97014; 97110; 97112; 97140; 97161; 97750; G0283